=== PATIENT | female | born 1940 | race Caucasian/White ===

== ENCOUNTER 2016-10-03 06:43 | Emergency (ER) | payer MEDICARE ==
[~2016-10-03] VITALS: Wt 46.1 kg
[2016-10-03] MEDS ORDERED: AMLO1TAB PO (08:57)
[2016-10-03] MEDS ORDERED: SIMV20TA PO (08:57)
--- NOTE | 2016-10-03 08:57 | ERD ---
ER Documentation Chief Complaint Date/Time DATE: 10/03/16 TIME: 08:54 Chief Complaint LEFT LOWER LEG WOUND OPENED THIS AM WHEN SHE GOT UP FROM BED. NO TRAUMA HPI This 76-year-old female came to the ER for having blood oozing out of her chronic ankle ulcer. Her home health nurse noticed this yesterday. She again has some slight blood oozing out of the inferior portion under her dressing. She has only mild pain to her ulcer which she usually does. She takes [place] at home for the pain. Is currently controlled. She has no lightheadedness dizziness or headache. She is able to use the foot and is ambulatory. ROS All systems reviewed and are negative except as per history of present illness. PMhx/Soc Hx Alcohol Use: Yes (occasionally) Hx Tobacco Use: Yes Smoking Status: Current some day smoker Physical Exam Vitals Vital Signs Date Time Temp Pulse Resp B/P Pulse Ox O2 Delivery O2 Flow Rate FiO2 10/03/16 06:48 98.6 80 18 152/80 98 Physical Exam Const: [] No distress Resp: Clear to auscultation bilaterally Cardio: Regular rate and rhythm, no murmurs Ext: No cyanosis, or edema. Large 10 x 6 oval-shaped vertically oriented ankle ulceration. There is no foul odor, there is no discoloration or necrosis , there is mild blood oozing from the inferior portion of this. Neur: Awake and alert Psych: Normal Mood and Affect Procedures/MDM Bleeding from chronic ulceration. Patient has excellent care with both home care and wound care clinic. She has an appointment today at 915 in the wound care clinic and is very building. The wound was rewrapped with Surgicel dressing. The blood is slightly as the surgery could still have time to work. We then change the dressing with a new piece of Surgicel. There was no bleeding after being observed for 30 minutes. Going to discharge her and allowed to go to her wound care clinic for further management and evaluation. Primary care follow-up advised as well as return precautions to the ER if there is further difficulty controlling the bleeding. Departure Diagnosis: Primary Impression: Bleeding disorder Additional Impression: Skin ulcer of ankle Condition: Stable Patient Instructions: First Aid: Bleeding, Post Op Wound Check, Bleeding Referrals: [facility] Additional Instructions: Go to your wound care appointment now. Follow up with PCP in 2 days. KANCHAN MENDEZ DO October 03, 2016 08:57
[2016-10-03] MEDS ORDERED: CLOP75TA27 PO (08:58)
[2016-10-03] MEDS ORDERED: HYDR12.58 PO (08:58)
== END 2016-10-03 08:56 | disposition home or self-care (01) ==
LOC: E/R 06:43
DX: D68.9 Coagulation defect, unspecified (principal); I10 Essential (primary) hypertension; F17.210 Nicotine dependence, cigarettes, uncomplicated
CPT/HCPCS: 99282

== ENCOUNTER 2016-11-28 06:36 | Emergency (ER) | payer MEDICARE ==
[~2016-11-28] VITALS: Ht 165.1 cm; Wt 49.5 kg
[~2016-11-28 06:36] MED LIST: AMLO1TAB PO; CLOP75TA27 PO; HYDR12.58 PO; SIMV20TA PO
[2016-11-28 06:47] VITALS: Ht 165.1 cm; Wt 49.5 kg
--- NOTE | 2016-11-28 07:33 | ERD ---
ER Documentation Chief Complaint Date/Time DATE: 11/28/16 TIME: 07:30 Chief Complaint BIB [facility], BLEED LOW (L) LEG S/P GRAFT IN August This is a 76-year-old female who presents to the emergency room for evaluation of a chronic left lower extremity leg ulcer. This patient does have a history of peripheral vascular disease and is status post femoropopliteal bypass for possible SFA thrombosis in the past. The patient does see vascular surgeon, Dr. mae and has an appointment with her primary care physician this morning at 9 AM. She states that she woke up this morning and did note that she was bleeding from the ulcer. The patient does have home health care however she has not had in the past 4 days. The patient denies any pulsatile bleeding and came to the ER for evaluation. She denies any trauma to the area and denies being on blood thinners at this time ROS All systems reviewed and are negative except as per history of present illness. Medications Home Meds Reported Medications Clopidogrel Bisulfate (Clopidogrel) 75 Mg Tablet, 75 MG PO DAILY, #30 TAB 10/03/16 Hydrochlorothiazide* (Hydrochlorothiazide*) 12.5 Mg Tablet, 12.5 MG PO DAILY, # 30 TAB 10/03/16 Simvastatin* (Zocor*) 20 Mg Tablet, 20 MG PO QHS, #30 TAB 10/03/16 Amlodipine Bes/Olmesartan Med (Javier 5-40 mg Tablet) 1 Each Tablet, 1 EACH PO DAILY, TAB 10/03/16 Allergies Allergies: Coded Allergies: No Known Allergy (Unverified , 10/03/16) PMhx/Soc History of Surgery: Yes (BYPASS GRAFT BILATERAL LEGS) Anesthesia Reaction: No Hx Neurological Disorder: No Hx Respiratory Disorders: No Hx Psychiatric Problems: No Hx Alcohol Use: Yes (occasionally) Hx Tobacco Use: Yes (STOPPED IN 2015) Smoking Status: Former smoker Physical Exam Vitals Vital Signs Date Time Temp Pulse Resp B/P Pulse Ox O2 Delivery O2 Flow Rate FiO2 11/28/16 06:59 98.1 68 15 143/86 Room Air 11/28/16 06:47 98.1 64 14 148/73 94 Physical Exam INITIAL VITAL SIGNS: Reviewed by me GENERAL: The patient is well developed and appropriate for usual state of health in no apparent distress HEENT: Pupils equal, round, and reactive to light. EOMI. There is no scleral icterus. NECK: C-spine is soft and supple, there is no meningismus. There is no cervical lymphadenopathy. LUNGS: Clear to auscultation bilaterally. There are no rales, wheezes or rhonchi. HEART: Regular rate and rhythm, no murmurs, clicks, rubs or gallops. ABDOMEN: Soft, non-tender, non-distended. There are bowel sounds in all four quadrants. No rebound or guarding. EXTREMITIES: There is no peripheral cyanosis or edema. No focal swelling or erythema. NEUROLOGICAL: The patient moves all four extremities with 5/5 strength. Cranial nerves II - XII are intact. Normal gait. Alert and oriented SKIN: Large ulcer noted on the left lower extremity medial portion extending from the midcalf to the left medial malleolus, small amount of nonpulsatile bleeding noted. There is no apparent rash or petechiae. HEME/LYMPHATIC: There is no evidence of excessive bruising or lymphedema. PSYCHIATRIC: The patient does not appear anxious or depressed. Procedures/MDM This 76-year-old female presents to the emergency room for evaluation of chronic leg ulcer. The patient does have an appointment today at 9:15 AM with her primary care physician for reevaluation and possible intervention by vascular surgery. She has had a femoropopliteal bypass in the past done at [facility]. The patient had no pulsatile bleeding in the emergency room. I did note a small area of oozing. The patient did have Surgicel applied and had her wound wrapped. The patient is in no acute distress at this time and will be discharged so she can follow-up with her primary care physician today. Departure Diagnosis: Primary Impression: Encounter for wound re-check Additional Impression: Ulcer of left lower extremity Condition: Stable MACEY ANGELA DO Nov 28, 2016 07:33
[2016-11-28 08:39] VITALS: BP 131/62; PULSE 67; RESP 15; TEMP 98.1
== END 2016-11-28 08:45 | disposition home or self-care (01) ==
LOC: E/R 06:36
DX: L97.929 Non-pressure chronic ulcer of unspecified part of left lower leg with unspecified severity (principal); Z48.01 Encounter for change or removal of surgical wound dressing; Z95.828 Presence of other vascular implants and grafts; Z87.891 Personal history of nicotine dependence
CPT/HCPCS: 99282

== ENCOUNTER 2016-12-26 11:14 | Inpatient (IN) | payer MEDICARE ==
[~2016-12-26] VITALS: Ht 165.1 cm; Wt 50.9 kg
[2016-12-26 17:42] VITALS: Ht 165.1 cm; Wt 50.9 kg
[2016-12-26] MEDS ORDERED: ONDANSETRON 4 MG INJ IV PRN (18:00)
[2016-12-26] MEDS ORDERED: NACL 0.9% 3 ML SYG IV SCH (18:00)
[2016-12-26] MEDS ORDERED: BISACODYL (EC) 5 MG TAB PO PRN (18:00)
[2016-12-26] MEDS ORDERED: ACETAMINOPHEN 325 MG TAB PO PRN (18:00)
[2016-12-26] MEDS ORDERED: MAGNESIUM HYDROXIDE 30ML CUP PO PRN (18:00)
[2016-12-26] MEDS ORDERED: hydrALAzine 20 MG INJ IV PRN (18:00)
[2016-12-26] MEDS: HYDROCODONE/APAP (5/325) TAB PO PRN (18:05)
[2016-12-26] MEDS: NICOTINE (7 MG/24 HR) PATCH TRANSDERM SCH (18:30)
[2016-12-26] MEDS ORDERED: VANCOMYCIN 1 GM in NS 250 ML IVPB ONE (18:30)
[2016-12-26] MEDS ORDERED: VANCOMYCIN IV PER PHARMACY XX SCH (18:30)
--- NOTE | 2016-12-26 18:38 | HP ---
Date/Time of Note Date/Time of Note DATE: 12/26/16 TIME: 18:36 Assessment/Plan VTE Prophylaxis VTE Prophylaxis Intervention: heparin Assessment/Plan Chief Complaint/Hosp Course 1. Left lower extremity nonhealing wounds. Failed outpatient treatment. The patient will be started on empiric antibiotics. Wound cultures will be obtained. The patient will be followed by podiatry, vascular surgery, and infectious diseases. 2. Essential hypertension. The patient will be started on routine antihypertensives. The patient will also be started on PRN antihypertensives for any systolic blood pressure readings greater than 160 mmHg. 3. Dyslipidemia. The patient's statins will be resumed. A fasting lipid panel will be obtained. 4. Peripheral vascular disease. Patient is status post bypass surgery on bilateral lower extremities. The patient will be continued on antiplatelet therapy. The patient will be followed by vascular surgery. 5. Nicotine use. The patient will be provided with a nicotine patch. Plan: The patient will be admitted to inpatient medical surgical floor. The patient will be started on a low-cholesterol diet. The patient will be started on DVT prophylaxis and gastrointestinal prophylaxis. The patient will remain a full code. Activities will be as tolerated. The rest of the patient's management will be based on the clinical course, input from consultants, and the results of diagnostic studies. Based on the patient's clinical presentation, she most probably requires at least 2 midnights stay for further management and evaluation of her clinical presentation. The case and management of this patient was fully discussed with Dr. Elaine. Problems: HPI/ROS Admit Date/Time Admit Date/Time Dec 26, 2016 at 14:43 Hx of Present Illness Reason for admission: Left lower extremity chronic wound. Consultants 1. Jimi Azul MD, Vascular Surgery 2. Dr. Jose Jessica MD, Infectious Diseases. This is a 76-year-old -[place] female with past medical history of peripheral vascular disease, essential hypertension, and dyslipidemia who has been [facility] for left lower extremity nonhealing ulcer. The patient went to see the physician at the [facility] today. As per the oyster unloader at Dr. Ayala at the am[facility] prevention center, the patient will be admitted to medical surgical floor for further management of nonhealing left lower extremity ulcer. The patient is not the best historian. Hence the details are of her medical problems were obtained by reviewing the patient's medical records. The patient follows up with outpatient vascular surgeon Dr. Watkins and her laborer steel handling is Dr. Abdul. ROS Constitutional: no complaints Eyes: no complaints ENT: no complaints Respiratory: no complaints Cardiovascular: no complaints Gastrointestinal: no complaints Genitourinary: no complaints Musculoskeletal: no complaints Skin: skin lesions (Bilateral lower extreme) Neurologic: no complaints Endocrine: no complaints Lymphatic: no complaints Psychological: no complaints Immunologic: no complaints PMH/Family/Social Past Medical History Medical History: high cholesterol, hypertension, other (Peripheral vascular disease) Past Surgical History Past Surgical Hx: other (Hysterectomy, bilateral lower extremity arterial bypass surgery) Social History Alcohol Use: occasionally Smoking Status: Current every day smoker Drug Use: none Exam/Review of Systems Exam Exam General: Thin, frail looking, 76 year-old female lying in bed in no apparent distress. HEENT: Normocephalic and atraumatic. Eyes: Anicteric sclerae, conjunctivae clear. ENT: Nasal septum midline, oral mucosa moist. Neck supple, no JVD noticed. Respiratory: Bilaterally clear breath sounds. No use of accessory muscles of respiration. No adventitious breath sounds. Cardiovascular: S1, S2 heard. No murmurs or gallops. Abdomen: Soft, nontender, and nondistended. Bowel sounds positive in all 4 quadrants. Genitourinary: Deferred. Extremities: Right lower extremity wound below the medial malleolus. Left lower extremity wound with eschar formation laterally and medially. Left lower extremity edema greater than right lower extremity. Left lower extremity edema greater than right lower extremity. Neurologic: Cranial nerves II through XII grossly intact. The patient is awake, alert, and oriented. Medications Medications Current Medications Ondansetron HCl (Zofran Inj) 4 mg Q6H PRN IV NAUSEA AND/OR VOMITING; Start at 18:00 Acetaminophen (Tylenol Tab) 650 mg Q6H PRN PO PAIN LEVEL 1-3 OR FEVER; Start at 18:00 Acetaminophen/ Hydrocodone Bitart ([place] (5/325)) 1 tab Q6H PRN PO MODERATE PAIN LEVEL 4-6 Last administered on 12/26/16t 18:05; Admin Dose 1 TAB; Start at 18:00 Morphine Sulfate (morphine) 2 mg Q4H PRN IV SEVERE PAIN LEVEL 7-10; Start 12/26 at 18:00 Magnesium Hydroxide (Milk Of Mag) 30 ml DAILY PRN PO CONSTIPATION; Start at 18:00 Bisacodyl (Dulcolax) 5 mg DAILY PRN PO CONSTIPATION; Start 12/26/16 at 18:00 Famotidine (Pepcid) 20 mg Q12 PO ; Start 12/26/16 at 21:00 Heparin Sodium (Porcine) (Heparin (5000 Units/0.5 ml)) 5,000 unit Q12 SC ; Start 12/26/16 at 21:00 Clopidogrel Bisulfate (plaVIX) 75 mg DAILY PO ; Start 12/27/16 at 09:00 Hydrochlorothiazide (Hydrochlorothiazide) 12.5 mg DAILY PO ; Start 12/27/16 at 09:00 Amlodipine Besylate (Norvasc) 5 mg DAILY PO ; Start 12/27/16 at 09:00 Atorvastatin Calcium (Lipitor) 10 mg QHS PO ; Start 12/26/16 at 21:00 Hydralazine HCl (Apresoline) 10 mg Q6H PRN IV SBP>160; Start 12/26/16 at 18:00 Losartan Potassium (Cozaar) 100 mg DAILY PO ; Start 12/27/16 at 09:00 Nicotine 1 patch 1 patch DAILY TRANSDERM ; Start 12/26/16 at 18:30 Vancomycin HCl (Vancocin) 250 ml @ 125 mls/hr ONCE ONCE IVPB ; Start 12/26/16 at 18:30; Stop 12/26/16 at 20:29 AMANDA KUNZ NP Dec 26, 2016 18:38
[2016-12-26 18:40] LABS: BASOPHILS % 0.1 % (0.0-2.0); EOSINOPHILS # 0.1 10^3/ul (0.0-0.5); EOSINOPHILS % 1.4 % (0.0-7.0); HEMOGLOBIN 11.7 g/dl (12.0-16.0); LYMPHOCYTES # 0.8 10^3/ul (0.8-2.9); LYMPHOCYTES % 10.8 % (15.0-51.0); MEAN CORPUSCULAR HEMOGLOBIN 29.9 pg (29.0-33.0); MEAN CORPUSCULAR HGB CONC 32.5 g/dl (32.0-37.0); MEAN CORPUSCULAR VOLUME 92.1 fl (82.0-101.0); MEAN PLATELET VOLUME 8.8 fl (7.4-10.4); MONOCYTE # 0.3 10^3/ul (0.3-0.9); MONOCYTES % 3.8 % (0.0-11.0); NEUTROPHILS % 83.5 % (39.0-77.0); PLATELET COUNT 496 10^3/UL (140-415); RED BLOOD COUNT 3.91 10^6/ul (4.20-5.40); RED CELL DISTRIBUTION WIDTH 12.8 % (11.5-14.5); WHITE BLOOD COUNT 7.2 10^3/ul (4.8-10.8)
[2016-12-26 18:54] LABS: INR 0.86; PROTIME 11.7 Sec (12.2-14.2); PT RATIO 0.9
[2016-12-26 18:55] LABS: PARTIAL THROMBOPLASTIN TIME 25.9 Sec (25.0-35.0)
[2016-12-26 19:07] LABS: ALBUMIN 3.9 g/dl (3.3-4.9); ALBUMIN/GLOBULIN RATIO 1.11; CALCIUM 9.4 mg/dl (8.4-10.2); CREATININE 0.9 mg/dl (0.44-1.00); MAGNESIUM 1.9 mg/dl (1.7-2.5); POTASSIUM 3.4 mmol/L (3.5-5.1); TOTAL PROTEIN 7.4 g/dl (6.1-8.1)
[2016-12-26 19:24] VITALS: BP 138/68; RESP 18
--- NOTE | 2016-12-26 19:58 | CONS ---
Date/Time of Note Date/Time of Note DATE: 12/26/16 TIME: 19:57 Consultation Date/Type/Reason Admit Date/Time Dec 26, 2016 at 14:43 Type of Consultation: ID Reason for Consultation Antibiotic management Eyes: no complaints ENT: no complaints Respiratory: no complaints Cardiovascular: no complaints Gastrointestinal: no complaints Genitourinary: no complaints Musculoskeletal: no complaints Skin: skin lesions (Bilateral lower extreme) Neurologic: no complaints Lymphatic: no complaints Psychological: no complaints Immunologic: no complaints Past Medical History Medical History: high cholesterol, hypertension, other (Peripheral vascular disease) Past Surgical History Past Surgical Hx: other (Hysterectomy, bilateral lower extremity arterial bypass surgery) Social History Alcohol Use: occasionally Smoking Status: Current every day smoker Drug Use: none Exam/Review of Systems Vital Signs Vitals Vital Signs Date Time Temp Pulse Resp B/P Pulse Ox O2 Delivery O2 Flow Rate FiO2 12/26/16 19:24 97.8 79 18 138/68 96 Results Result Diagram: 12/26/16 1819 12/26/16 1819 Results 24 hrs Laboratory Tests Test 12/26/16 18:19 White Blood Count 7.2 Red Blood Count 3.91 L Hemoglobin 11.7 L Hematocrit 36.0 L Mean Corpuscular Volume 92.1 Mean Corpuscular Hemoglobin 29.9 Mean Corpuscular Hemoglobin Concent 32.5 Red Cell Distribution Width 12.8 Platelet Count 496 H Mean Platelet Volume 8.8 Neutrophils % 83.5 H Lymphocytes % 10.8 L Monocytes % 3.8 Eosinophils % 1.4 Basophils % 0.1 Nucleated Red Blood Cells % 0.0 Neutrophils # 6.0 Lymphocytes # 0.8 Monocytes # 0.3 Eosinophils # 0.1 Basophils # 0.0 Nucleated Red Blood Cells # 0.0 Prothrombin Time 11.7 L Prothrombin Time Ratio 0.9 INR International Normalized Ratio 0.86 Activated Partial Thromboplast Time 25.9 Sodium Level 143 Potassium Level 3.4 L Chloride Level 100 Carbon Dioxide Level 30 Anion Gap 16 Blood Urea Nitrogen 19 Creatinine 0.90 Glucose Level 168 Hemoglobin A1c 5.9 Calcium Level 9.4 Phosphorus Level 3.0 Magnesium Level 1.9 Total Bilirubin 0.0 L Direct Bilirubin 0.00 Indirect Bilirubin 0.0 Aspartate Amino Transf (AST/SGOT) 26 Alanine Aminotransferase (ALT/SGPT) 21 Alkaline Phosphatase 88 Total Protein 7.4 Albumin 3.9 Globulin 3.50 H Albumin/Globulin Ratio 1.11 Vitamin D 1,25-Dihydroxy 26.8 L Thyroid Stimulating Hormone (TSH) Pending Free Thyroxine 1.08 Medications Medications Current Medications Ondansetron HCl (Zofran Inj) 4 mg Q6H PRN IV NAUSEA AND/OR VOMITING; Start at 18:00 Acetaminophen (Tylenol Tab) 650 mg Q6H PRN PO PAIN LEVEL 1-3 OR FEVER; Start at 18:00 Acetaminophen/ Hydrocodone Bitart ([place] (5/325)) 1 tab Q6H PRN PO MODERATE PAIN LEVEL 4-6 Last administered on 12/26/16t 18:05; Admin Dose 1 TAB; Start at 18:00 Morphine Sulfate (morphine) 2 mg Q4H PRN IV SEVERE PAIN LEVEL 7-10; Start 12/26 at 18:00 Magnesium Hydroxide (Milk Of Mag) 30 ml DAILY PRN PO CONSTIPATION; Start at 18:00 Bisacodyl (Dulcolax) 5 mg DAILY PRN PO CONSTIPATION; Start 12/26/16 at 18:00 Famotidine (Pepcid) 20 mg Q12 PO ; Start 12/26/16 at 21:00 Heparin Sodium (Porcine) (Heparin (5000 Units/0.5 ml)) 5,000 unit Q12 SC ; Start 12/26/16 at 21:00 Clopidogrel Bisulfate (plaVIX) 75 mg DAILY PO ; Start 12/27/16 at 09:00 Hydrochlorothiazide (Hydrochlorothiazide) 12.5 mg DAILY PO ; Start 12/27/16 at 09:00 Amlodipine Besylate (Norvasc) 5 mg DAILY PO ; Start 12/27/16 at 09:00 Atorvastatin Calcium (Lipitor) 10 mg QHS PO ; Start 12/26/16 at 21:00 Hydralazine HCl (Apresoline) 10 mg Q6H PRN IV SBP>160; Start 12/26/16 at 18:00 Losartan Potassium (Cozaar) 100 mg DAILY PO ; Start 12/27/16 at 09:00 Nicotine 1 patch 1 patch DAILY TRANSDERM ; Start 12/26/16 at 18:30 Vancomycin HCl 250 ml @ 125 mls/hr ONCE ONCE IVPB ; Start 12/26/16 at 18:30; Stop 12/26/16 at 20:29 Vancomycin HCl/ Sodium Chloride (Vancocin/NS) 150 ml @ 75 mls/hr Q24H IVPB ; Start 12/27/16 at 20:00 AYANA MAYORGA MD Dec 26, 2016 19:58
[2016-12-26 20:20] LABS: THYROID STIMULATING HORMONE 4.48 MIU/L (0.465-4.680)
[2016-12-26] MEDS: FAMOTIDINE 20 MG TAB PO SCH (20:43)
[2016-12-26] MEDS: ATORVASTATIN 10 MG TAB PO SCH (20:44)
[2016-12-26] MEDS: HEPARIN 5,000 UNIT/0.5 ML VIAL SC SCH ×2 (21:00→21:53)
[2016-12-26] MEDS: morphine 2 MG INJ IV PRN (21:47)
[2016-12-26] MEDS ORDERED: TRAV2.5D BOTH EYES (22:47)
[2016-12-26] MEDS ORDERED: TIMO5DRO30 BOTH EYES (22:47)
[2016-12-26] MEDS ORDERED: ASPI-664 PO (22:47)
[2016-12-26] MEDS ORDERED: CILO100T PO (22:47)
[2016-12-27 02:32] VITALS: BP 141/71; RESP 18
[2016-12-27] MEDS: morphine 2 MG INJ IV PRN ×2 (05:01→17:37)
[2016-12-27 07:37] LABS: CHOL/HDL RATIO 4.1 RATIO
[2016-12-27 07:45] VITALS: BP 133/63; RESP 20
[2016-12-27] MEDS: CLOPIDOGREL 75 MG TAB PO SCH (08:20)
[2016-12-27] MEDS: LOSARTAN 50 MG TAB PO SCH (08:20)
[2016-12-27] MEDS: AMLODIPINE 5 MG TAB PO SCH (08:20)
[2016-12-27] MEDS: FAMOTIDINE 20 MG TAB PO SCH ×2 (08:20→20:16)
[2016-12-27] MEDS: HYDROCHLOROTHIAZIDE 12.5 MG CAP PO SCH (08:20)
[2016-12-27] MEDS: NICOTINE (7 MG/24 HR) PATCH TRANSDERM SCH (08:21)
[2016-12-27] MEDS: HEPARIN 5,000 UNIT/0.5 ML VIAL SC SCH ×2 (08:22→20:22)
[2016-12-27] MEDS: HYDROCODONE/APAP (5/325) TAB PO PRN ×3 (08:24→21:33)
--- NOTE | 2016-12-27 11:01 | PN ---
Date/Time of Note Date/Time of Note DATE: 12/27/16 TIME: 10:59 Assessment/Plan VTE Prophylaxis VTE Prophylaxis Intervention: heparin Lines/Catheters IV [facility] Saline Lock Assessment/Plan Chief Complaint/Hosp Course 1. Left lower extremity nonhealing wounds. Failed outpatient treatment. Continue antibiotics as per infectious diseases. Being followed by podiatry and vascular surgery. 2. Essential hypertension. The patient will be continued on routine antihypertensives. The patient will also be continued on PRN antihypertensives for any systolic blood pressure readings greater than 160 mmHg. 3. Dyslipidemia. The patient will be continued on statins. 4. Peripheral vascular disease. The patient will be continued on antiplatelet therapy. The patient being followed by vascular surgery. 5. Nicotine use. The patient will be provided with a nicotine patch. 6. Normocytic, normochromic anemia. Most probably anemia of chronic disease. Will monitor H&H closely. 7. Fluids, electrolytes, and nutrition. Low-cholesterol diet. 8. DVT prophylaxis. Subcutaneous heparin. 9. Gastrointestinal prophylaxis. Histamine 2 receptor blockers. 10. Plan. Continue local wound care. Continue antimicrobials. Await cultures. Case discussed with . Problems: Subjective 24 Hr Interval Summary Free Text/Dictation Had some left lower extremity pain in the morning. Exam/Review of Systems Vital Signs Vitals Vital Signs Date Time Temp Pulse Resp B/P Pulse Ox O2 Delivery O2 Flow Rate FiO2 12/27/16 07:45 98.9 87 20 133/63 96 Intake and Output 12/26/16 12/26/16 12/27/16 15:00 23:00 07:00 Intake Total 250 ml Balance 250 ml Exam General: Thin, frail looking, 76 year-old female lying in bed in no apparent distress. HEENT: Normocephalic and atraumatic. Eyes: Anicteric sclerae, conjunctivae clear. ENT: Nasal septum midline, oral mucosa moist. Neck supple, no JVD noticed. Respiratory: Bilaterally clear breath sounds. No use of accessory muscles of respiration. No adventitious breath sounds. Cardiovascular: S1, S2 heard. No murmurs or gallops. Abdomen: Soft, nontender, and nondistended. Bowel sounds positive in all 4 quadrants. Genitourinary: Deferred. Extremities: Right lower extremity wound below the medial malleolus. Left lower extremity wound with eschar formation laterally and medially. Left lower extremity edema greater than right lower extremity. Neurologic: Cranial nerves II through XII grossly intact. The patient is awake, alert, and oriented. Results Result Diagram: 12/26/16181812/26/161818 Results 24 hrs Laboratory Tests Test 12/26/16 18:19 12/27/16 05:52 White Blood Count 7.2 Red Blood Count 3.91 L Hemoglobin 11.7 L Hematocrit 36.0 L Mean Corpuscular Volume 92.1 Mean Corpuscular Hemoglobin 29.9 Mean Corpuscular Hemoglobin Concent 32.5 Red Cell Distribution Width 12.8 Platelet Count 496 H Mean Platelet Volume 8.8 Neutrophils % 83.5 H Lymphocytes % 10.8 L Monocytes % 3.8 Eosinophils % 1.4 Basophils % 0.1 Nucleated Red Blood Cells % 0.0 Neutrophils # 6.0 Lymphocytes # 0.8 Monocytes # 0.3 Eosinophils # 0.1 Basophils # 0.0 Nucleated Red Blood Cells # 0.0 Prothrombin Time 11.7 L Prothrombin Time Ratio 0.9 INR International Normalized Ratio 0.86 Activated Partial Thromboplast Time 25.9 Sodium Level 143 Potassium Level 3.4 L Chloride Level 100 Carbon Dioxide Level 30 Anion Gap 16 Blood Urea Nitrogen 19 Creatinine 0.90 Glucose Level 168 Hemoglobin A1c 5.9 Calcium Level 9.4 Phosphorus Level 3.0 Magnesium Level 1.9 Total Bilirubin 0.0 L Direct Bilirubin 0.00 Indirect Bilirubin 0.0 Aspartate Amino Transf (AST/SGOT) 26 Alanine Aminotransferase (ALT/SGPT) 21 Alkaline Phosphatase 88 Total Protein 7.4 Albumin 3.9 Globulin 3.50 H Albumin/Globulin Ratio 1.11 Vitamin D 1,25-Dihydroxy 26.8 L Thyroid Stimulating Hormone (TSH) 4.480 Free Thyroxine 1.08 Triglycerides Level 67 Cholesterol Level 115 LDL Cholesterol, Calculated 74 HDL Cholesterol 28 L Cholesterol/HDL Ratio 4.1 Medications Medications Current Medications Ondansetron HCl (Zofran Inj) 4 mg Q6H PRN IV NAUSEA AND/OR VOMITING; Start at 18:00 Acetaminophen (Tylenol Tab) 650 mg Q6H PRN PO PAIN LEVEL 1-3 OR FEVER; Start at 18:00 Acetaminophen/ Hydrocodone Bitart ([place] (5/325)) 1 tab Q6H PRN PO MODERATE PAIN LEVEL 4-6 Last administered on 12/27/16 08:24; Admin Dose 1 TAB; Start at 18:00 Morphine Sulfate (morphine) 2 mg Q4H PRN IV SEVERE PAIN LEVEL 7-10 Last administered on 12/27/16 05:01; Admin Dose 2 MG; Start 12/26/16 at 18:00 Magnesium Hydroxide (Milk Of Mag) 30 ml DAILY PRN PO CONSTIPATION; Start at 18:00 Bisacodyl (Dulcolax) 5 mg DAILY PRN PO CONSTIPATION; Start 12/26/16 at 18:00 Famotidine (Pepcid) 20 mg Q12 PO Last administered on 12/27/16 08:20; Admin Dose 20 MG; Start 12/26/16 at 21:00 Heparin Sodium (Porcine) (Heparin (5000 Units/0.5 ml)) 5,000 unit Q12 SC Last administered on 12/27/16 08:22; Admin Dose 5,000 UNIT; Start 12/26/16 at 21:00 Clopidogrel Bisulfate (plaVIX) 75 mg DAILY PO Last administered on 12/27/16 08 :20; Admin Dose 75 MG; Start 12/27/16 at 09:00 Hydrochlorothiazide (Hydrochlorothiazide) 12.5 mg DAILY PO Last administered on 12/27/16 08:20; Admin Dose 12.5 MG; Start 12/27/16 at 09:00 Amlodipine Besylate (Norvasc) 5 mg DAILY PO Last administered on 12/27/16 08: 20; Admin Dose 5 MG; Start 12/27/16 at 09:00 Atorvastatin Calcium (Lipitor) 10 mg QHS PO Last administered on 12/26/16 20: 44; Admin Dose 10 MG; Start 12/26/16 at 21:00 Hydralazine HCl (Apresoline) 10 mg Q6H PRN IV SBP>160; Start 12/26/16 at 18:00 Losartan Potassium (Cozaar) 100 mg DAILY PO Last administered on 12/27/16 08: 20; Admin Dose 100 MG; Start 12/27/16 at 09:00 Nicotine 1 patch 1 patch DAILY TRANSDERM ; Start 12/26/16 at 18:30 Vancomycin HCl/ Sodium Chloride (Vancocin/NS) 150 ml @ 75 mls/hr Q24H IVPB ; Start 12/27/16 at 20:00 AMANDA KUNZ NP Dec 27, 2016 11:01 AMANDA KUNZ NP Dec 27, 2016 11:01
[2016-12-27 14:16] VITALS: BP 130/62; RESP 20
[2016-12-27] MEDS: LEVOFLOXACIN 500MG/D5W (PMX) 100 ML IVPB SCH (15:03)
[2016-12-27] MEDS ORDERED: GUAIFENESIN/DM 5ML CUP PO PRN (16:00)
[2016-12-27 19:16] VITALS: BP 133/66; RESP 18
--- NOTE | 2016-12-27 19:51 | CONS ---
Date/Time of Note Date/Time of Note DATE: 12/27/16 TIME: 19:34 Assessment/Plan Assessment/Plan Chief Complaint/Hosp Course ID PROGRESS NOTE 24H SUMMARY * Resting eyes closed, vss, no fevers, calm, NAD, no complaints offered * Chart reviewed MICRO 12/19/16 WOUND CULTURE Final Organism 1 PSEUDOMONAS AERUGINOSA QUANTITY 1+ P.AERUG M.I.C. RX --------- --- AMIKACIN <=2 S AZTREONAM S CEFEPIME 2 S CEFTAZIDIME 2 S CIPROFLOXACIN <=0.25 S GENTAMICIN <=1 S IMIPENEM >=16 R LEVOFLOXACIN 0.25 S TOBRAMYCIN <=1 S PIPERACILLIN/TAZOBACTAM 8 S 11/14/16 WOUND CULTURE Final Organism 1 PSEUDOMONAS AERUGINOSA QUANTITY 1+ Organism 2 CORYNEBACTER JEIKEIUM (GRP JK) QUANTITY 4+ Organism 3 ACINETOBACTER BAUMANNII QUANTITY 1+ Organism 4 ALPHA HEMOLYTIC STREP SPP QUANTITY SCANT GROWTH . VIRIDANS GROUP GENERAL: She is an elderly -Greek woman, VSS, NAD HEENT: Unremarkable NECK: Supple, full ROM CHEST: Equal chest rise bilaterally, without dyspnea on observation CV: Radial pulse RRR ABDOMEN: Soft, nontender, nondistended. LOWER EXTREMITIES: 2+ DP pulses/LLEXT DSG C/D/I. ID ASSESSMENT 1. Left lower extremity nonhealing wounds. Failed outpatient treatment. * Followed by podiatry and vascular surgery. 2. Peripheral arterial disease => hx of bilateral lower extremity arterial bypass surgery early 2016 @ [facility] * Continued on antiplatelet therapy 3. Dyslipidemia = on statins. 4. Essential hypertension. 5. GERD 6. Glaucoma -> Timolol eye gtts 7. Tobaccoism -> 1-cig per day ? nicotine patch 8. ?Psych? => Noncompliance with medical tx despite severity of condition CURRENT ABX: Vanco IV + Levaquin ID RECOMMENDATIONS 1. Continue current ABX 2. Check nares for MRSA 3. Smoking cessation -> strongly advocate . Problems: Consultation Date/Type/Reason Admit Date/Time Dec 26, 2016 at 14:43 Initial Consult Date Type of Consultation: ID Exam/Review of Systems Vital Signs Vitals Vital Signs Date Time Temp Pulse Resp B/P Pulse Ox O2 Delivery O2 Flow Rate FiO2 12/27/16 19:16 98.2 18 133/66 91 12/27/16 14:16 76 Intake and Output 12/26/16 12/26/16 12/27/16 15:00 23:00 07:00 Intake Total 250 ml Balance 250 ml Results Result Diagram: 12/26/16 1819 12/26/16 1819 Results 24 hrs Laboratory Tests Test 12/27/16 05:52 Triglycerides Level 67 Cholesterol Level 115 LDL Cholesterol, Calculated 74 HDL Cholesterol 28 L Cholesterol/HDL Ratio 4.1 Medications Medications Current Medications Ondansetron HCl (Zofran Inj) 4 mg Q6H PRN IV NAUSEA AND/OR VOMITING; Start at 18:00 Acetaminophen (Tylenol Tab) 650 mg Q6H PRN PO PAIN LEVEL 1-3 OR FEVER; Start at 18:00 Acetaminophen/ Hydrocodone Bitart ([place] (5/325)) 1 tab Q6H PRN PO MODERATE PAIN LEVEL 4-6 Last administered on 12/27/16 15:06; Admin Dose 1 TAB; Start at 18:00 Morphine Sulfate (morphine) 2 mg Q4H PRN IV SEVERE PAIN LEVEL 7-10 Last administered on 12/27/16 17:37; Admin Dose 2 MG; Start 12/26/16 at 18:00 Magnesium Hydroxide (Milk Of Mag) 30 ml DAILY PRN PO CONSTIPATION; Start at 18:00 Bisacodyl (Dulcolax) 5 mg DAILY PRN PO CONSTIPATION; Start 12/26/16 at 18:00 Famotidine (Pepcid) 20 mg Q12 PO Last administered on 12/27/16 08:20; Admin Dose 20 MG; Start 12/26/16 at 21:00 Heparin Sodium (Porcine) (Heparin (5000 Units/0.5 ml)) 5,000 unit Q12 SC Last administered on 12/27/16 08:22; Admin Dose 5,000 UNIT; Start 12/26/16 at 21:00 Clopidogrel Bisulfate (plaVIX) 75 mg DAILY PO Last administered on 12/27/16 08 :20; Admin Dose 75 MG; Start 12/27/16 at 09:00 Hydrochlorothiazide (Hydrochlorothiazide) 12.5 mg DAILY PO Last administered on 12/27/16 08:20; Admin Dose 12.5 MG; Start 12/27/16 at 09:00 Amlodipine Besylate (Norvasc) 5 mg DAILY PO Last administered on 12/27/16 08: 20; Admin Dose 5 MG; Start 12/27/16 at 09:00 Atorvastatin Calcium (Lipitor) 10 mg QHS PO Last administered on 12/26/16 20: 44; Admin Dose 10 MG; Start 12/26/16 at 21:00 Hydralazine HCl (Apresoline) 10 mg Q6H PRN IV SBP>160; Start 12/26/16 at 18:00 Losartan Potassium (Cozaar) 100 mg DAILY PO Last administered on 12/27/16 08: 20; Admin Dose 100 MG; Start 12/27/16 at 09:00 Nicotine 1 patch 1 patch DAILY TRANSDERM ; Start 12/26/16 at 18:30 Vancomycin HCl 750 mg/Sodium Chloride 150 ml @ 75 mls/hr Q24H IVPB ; Start at 20:00 Levofloxacin/ Dextrose (Levaquin 500mg/ D5W 100 ml (Pmx)) 100 ml @ 100 mls/hr Q24H IVPB Last administered on 12/27/16 15:03; Admin Dose 100 MLS/HR; Start at 14:00 Guaifenesin/ Dextromethorphan (Robitussin Dm Liquid Cup) 5 ml Q4H PRN PO Cough Last administered on 12/27/16 15:46; Admin Dose 5 ML; Start 12/27/16 at 16:00 NIELS KNAPP NP Dec 27, 2016 19:45
[2016-12-27] MEDS: ATORVASTATIN 10 MG TAB PO SCH (20:16)
[2016-12-27] MEDS: VANCOMYCIN 750 MG in SOD CHLORIDE 0.9% 150 ML IVPB SCH (20:16)
[2016-12-27] MEDS: TIMOLOL 0.5% 5 ML OPH BOTH EYES SCH (21:00)
[2016-12-27] MEDS: LATANOPROST 0.005% 2.5 ML OPH BOTH EYES SCH (21:34)
[2016-12-28 02:00] VITALS: BP 136/69; RESP 18
[2016-12-28] MEDS: morphine 2 MG INJ IV PRN ×2 (02:01→22:49)
[2016-12-28 06:22] LABS: BASOPHILS % 0.2 % (0.0-2.0); EOSINOPHILS # 0.1 10^3/ul (0.0-0.5); EOSINOPHILS % 1.4 % (0.0-7.0); HEMATOCRIT 29.1 % (37.0-47.0); HEMOGLOBIN 9.4 g/dl (12.0-16.0); MEAN CORPUSCULAR HEMOGLOBIN 29.3 pg (29.0-33.0); MEAN CORPUSCULAR HGB CONC 32.3 g/dl (32.0-37.0); MEAN CORPUSCULAR VOLUME 90.7 fl (82.0-101.0); MONOCYTE # 0.4 10^3/ul (0.3-0.9); MONOCYTES % 7.2 % (0.0-11.0); NEUTROPHIL # 4.2 10^3/ul (1.6-7.5); NEUTROPHILS % 73.7 % (39.0-77.0); PLATELET COUNT 413 10^3/UL (140-415); RED BLOOD COUNT 3.21 10^6/ul (4.20-5.40); RED CELL DISTRIBUTION WIDTH 12.9 % (11.5-14.5); WHITE BLOOD COUNT 5.7 10^3/ul (4.8-10.8)
[2016-12-28 06:54] LABS: MAGNESIUM 1.5 mg/dl (1.7-2.5); PHOSPHORUS 3.2 mg/dl (2.5-4.9)
[2016-12-28 07:14] LABS: CALCIUM 8.9 mg/dl (8.4-10.2); CREATININE 0.75 mg/dl (0.44-1.00)
[2016-12-28 07:37] VITALS: BP 138/74; RESP 18
[2016-12-28] MEDS: CLOPIDOGREL 75 MG TAB PO SCH (08:19)
[2016-12-28] MEDS: TIMOLOL 0.5% 5 ML OPH BOTH EYES SCH ×2 (08:19→21:22)
[2016-12-28] MEDS: FAMOTIDINE 20 MG TAB PO SCH ×2 (08:19→21:21)
[2016-12-28] MEDS: AMLODIPINE 5 MG TAB PO SCH (08:19)
[2016-12-28] MEDS: HEPARIN 5,000 UNIT/0.5 ML VIAL SC SCH (08:20)
[2016-12-28] MEDS: HYDROCHLOROTHIAZIDE 12.5 MG CAP PO SCH (08:20)
[2016-12-28] MEDS: NICOTINE (7 MG/24 HR) PATCH TRANSDERM SCH (08:20)
[2016-12-28] MEDS: LOSARTAN 50 MG TAB PO SCH (08:20)
[2016-12-28] MEDS ORDERED: MAGNESIUM SULFATE 2 GM/50 ML 50 ML IVPB ONE (10:00)
--- NOTE | 2016-12-28 10:15 | PN ---
Date/Time of Note Date/Time of Note DATE: 12/28/16 TIME: 10:13 Assessment/Plan VTE Prophylaxis VTE Prophylaxis Intervention: heparin Lines/Catheters IV Catheter Type (from [facility]): Saline Lock Assessment/Plan Chief Complaint/Hosp Course 1. Left lower extremity nonhealing wounds. Failed outpatient treatment. Any antibiotics as per infectious diseases. Being followed by podiatry and vascular surgery. 2. Essential hypertension. The patient will be continued on routine antihypertensives. The patient will also be continued on PRN antihypertensives for any systolic blood pressure readings greater than 160 mmHg. 3. Dyslipidemia. The patient will be continued on statins. 4. Peripheral vascular disease. The patient will be continued on antiplatelet therapy. The patient being followed by vascular surgery. 5. Nicotine use. The patient will be provided with a nicotine patch. 6. Normocytic, normochromic anemia. Most probably anemia of chronic disease. Will monitor H&H closely. 7. Fluids, electrolytes, and nutrition. Low-cholesterol diet. 8. DVT prophylaxis. Subcutaneous heparin. 9. Gastrointestinal prophylaxis. Histamine 2 receptor blockers. 10. Plan. Continue local wound care. Continue antimicrobials. Await cultures. Replete magnesium. Case discussed with . Problems: Subjective 24 Hr Interval Summary Free Text/Dictation The patient remains afebrile. Vital signs stable. Exam/Review of Systems Vital Signs Vitals Vital Signs Date Time Temp Pulse Resp B/P Pulse Ox O2 Delivery O2 Flow Rate FiO2 12/28/16 07:37 98.9 86 18 138/74 96 Intake and Output 12/27/16 12/27/16 12/28/16 15:00 23:00 07:00 Intake Total 600 ml 1330 ml 250 ml Balance 600 ml 1330 ml 250 ml Exam General: Thin, frail looking, 76 year-old female lying in bed in no apparent distress. HEENT: Normocephalic and atraumatic. Eyes: Anicteric sclerae, conjunctivae clear. ENT: Nasal septum midline, oral mucosa moist. Neck supple, no JVD noticed. Respiratory: Bilaterally clear breath sounds. No use of accessory muscles of respiration. No adventitious breath sounds. Cardiovascular: S1, S2 heard. No murmurs or gallops. Abdomen: Soft, nontender, and nondistended. Bowel sounds positive in all 4 quadrants. Genitourinary: Deferred. Extremities: Right lower extremity wound below the medial malleolus. Left lower extremity wound with eschar formation laterally and medially. Left lower extremity edema greater than right lower extremity. Neurologic: Cranial nerves II through XII grossly intact. The patient is awake, alert, and oriented. Results Result Diagram: 12/28/1617 12/28/16 0517 Results 24 hrs Laboratory Tests Test 12/28/16 05:17 White Blood Count 5.7 # Red Blood Count 3.21 L Hemoglobin 9.4 L Hematocrit 29.1 L Mean Corpuscular Volume 90.7 Mean Corpuscular Hemoglobin 29.3 Mean Corpuscular Hemoglobin Concent 32.3 Red Cell Distribution Width 12.9 Platelet Count 413 Mean Platelet Volume 9.0 Neutrophils % 73.7 Lymphocytes % 17.0 Monocytes % 7.2 Eosinophils % 1.4 Basophils % 0.2 Nucleated Red Blood Cells % 0.0 Neutrophils # 4.2 Lymphocytes # 1.0 Monocytes # 0.4 Eosinophils # 0.1 Basophils # 0.0 Nucleated Red Blood Cells # 0.0 Sodium Level 141 Potassium Level 4.0 Chloride Level 103 Carbon Dioxide Level 27 Anion Gap 15 Blood Urea Nitrogen 13 Creatinine 0.75 Glucose Level 102 # Calcium Level 8.9 Phosphorus Level 3.2 Magnesium Level 1.5 L Medications Medications Current Medications Ondansetron HCl (Zofran Inj) 4 mg Q6H PRN IV NAUSEA AND/OR VOMITING; Start at 18:00 Acetaminophen (Tylenol Tab) 650 mg Q6H PRN PO PAIN LEVEL 1-3 OR FEVER; Start at 18:00 Acetaminophen/ Hydrocodone Bitart ([place] (5/325)) 1 tab Q6H PRN PO MODERATE PAIN LEVEL 4-6 Last administered on 12/27/16 21:33; Admin Dose 1 TAB; Start at 18:00 Morphine Sulfate (morphine) 2 mg Q4H PRN IV SEVERE PAIN LEVEL 7-10 Last administered on 12/28/16 02:01; Admin Dose 2 MG; Start 12/26/16 at 18:00 Magnesium Hydroxide (Milk Of Mag) 30 ml DAILY PRN PO CONSTIPATION; Start at 18:00 Bisacodyl (Dulcolax) 5 mg DAILY PRN PO CONSTIPATION; Start 12/26/16 at 18:00 Famotidine (Pepcid) 20 mg Q12 PO Last administered on 12/28/16 08:19; Admin Dose 20 MG; Start 12/26/16 at 21:00 Heparin Sodium (Porcine) (Heparin (5000 Units/0.5 ml)) 5,000 unit Q12 SC Last administered on 12/27/16 20:22; Admin Dose 5,000 UNIT; Start 12/26/16 at 21:00 Clopidogrel Bisulfate (plaVIX) 75 mg DAILY PO Last administered on 12/28/16 08 :19; Admin Dose 75 MG; Start 12/27/16 at 09:00 Hydrochlorothiazide (Hydrochlorothiazide) 12.5 mg DAILY PO Last administered on 12/28/16 08:20; Admin Dose 12.5 MG; Start 12/27/16 at 09:00 Amlodipine Besylate (Norvasc) 5 mg DAILY PO Last administered on 12/28/16 08: 19; Admin Dose 5 MG; Start 12/27/16 at 09:00 Atorvastatin Calcium (Lipitor) 10 mg QHS PO Last administered on 12/27/16 20: 16; Admin Dose 10 MG; Start 12/26/16 at 21:00 Hydralazine HCl (Apresoline) 10 mg Q6H PRN IV SBP>160; Start 12/26/16 at 18:00 Losartan Potassium (Cozaar) 100 mg DAILY PO Last administered on 12/28/16 08: 20; Admin Dose 100 MG; Start 12/27/16 at 09:00 Nicotine 1 patch 1 patch DAILY TRANSDERM ; Start 12/26/16 at 18:30 Vancomycin HCl 750 mg/Sodium Chloride 150 ml @ 75 mls/hr Q24H IVPB Last administered on 12/27/16 20:16; Admin Dose 75 MLS/HR; Start 12/27/16 at 20:00 Levofloxacin/ Dextrose (Levaquin 500mg/ D5W 100 ml (Pmx)) 100 ml @ 100 mls/hr Q24H IVPB Last administered on 12/27/16 15:03; Admin Dose 100 MLS/HR; Start at 14:00 Guaifenesin/ Dextromethorphan (Robitussin Dm Liquid Cup) 5 ml Q4H PRN PO Cough Last administered on 12/27/16 15:46; Admin Dose 5 ML; Start 12/27/16 at 16:00 Timolol Maleate (Timoptic 0.5%) 1 drop BID BOTH EYES Last administered on 08:19; Admin Dose 1 DROP; Start 12/27/16 at 21:00 Latanoprost 1 drop 1 drop QHS BOTH EYES Last administered on 12/27/16 21:34; Admin Dose 1 DROP; Start 12/27/16 at 21:30 Magnesium Sulfate (Magnesium Sulfate 2 Gm/50 ml) 50 ml @ 25 mls/hr ONCE ONCE IVPB ; Start 12/28/16 at 10:00; Stop 12/28/16 at 11:59 AMANDA KUNZ NP Dec 28, 2016 10:15 AMANDA KUNZ NP Dec 28, 2016 10:15
[2016-12-28] MEDS: CHOLECALCIFEROL 2,000 UNIT CAP PO SCH (10:38)
[2016-12-28] MEDS: HYDROCODONE/APAP (5/325) TAB PO PRN ×2 (10:39→19:59)
[2016-12-28] MEDS: ENOXAPARIN 30 MG/0.3 ML SYG SC SCH (11:00)
[2016-12-28] MEDS: LEVOFLOXACIN 500MG/D5W (PMX) 100 ML IVPB SCH (13:46)
--- NOTE | 2016-12-28 14:06 | CONS ---
DATE OF ADMISSION: 12/26/2016 DATE OF CONSULTATION: 12/26/2016 REASON FOR CONSULTATION: Antibiotic management. HISTORY OF PRESENT ILLNESS: The patient is a 76-year-old female with numerous problems including peripheral vascular disease, who comes in now with left lower extremity nonhealing wound. Past problems include: 1. Peripheral vascular disease. 2. Essential hypertension. 3. Dyslipidemia. The patient has been followed [facility] for left lower extremity nonhealing ulcer. She went to see her physician today and is now admitted for nonhealing left lower extremity ulcer. PAST MEDICAL HISTORY/OPERATIONS: As outlined. FAMILY HISTORY: Noncontributory. PAST SURGICAL HISTORY: Includes hysterectomy and bilateral lower extremity arterial bypass surgery. SOCIAL HISTORY: She does not drink. She smokes every day. She does not use drugs. ALLERGIES: NONE TO PENICILLIN, SULFA, OR FOODS. MEDICATION: Per chart. REVIEW OF SYSTEMS: As per HPI. PHYSICAL EXAMINATION: GENERAL: The patient is a thin, frail appearing female who is awake, responsive, in no acute distress. VITAL SIGNS: Stable. She is afebrile. SKIN: Without generalized rash. HEENT: Within normal limits. NECK: Supple. Lymph nodes not palpable. CHEST: Decreased breath sounds at the bases. HEART: Without murmur or gallop. ABDOMEN: Soft, nontender, without organosplenomegaly or masses. EXTREMITIES: Bilateral lower extremity dressings. Left lower extremity edema greater than right. RECTAL/GENITAL EXAMS: Deferred. NEUROLOGICAL: No focal neurological abnormalities. LABORATORY: White count 7.2 on admission. H and H of 11.7 and 36, platelet count 496,000. BUN and creatinine is 19/0.90. AST is 26. ALT is 21. Microbiology is pending. IMPRESSION AND PLAN: The patient is a 76-year-old female who comes in with left lower extremity wound. She is currently on vancomycin. Urine cultures are pending. I will dictate my findings to the hospitalist. Dictated By: Jose Llanes MD JD/sameer/ming /Document#: [id number]
[2016-12-28 14:24] VITALS: BP 119/66; RESP 18
--- NOTE | 2016-12-28 19:08 | CONS ---
Date/Time of Note Date/Time of Note DATE: 12/28/16 TIME: 19:04 Assessment/Plan Assessment/Plan Chief Complaint/Hosp Course ID PROGRESS NOTE CURRENT ABX: DAY #3 => Vanco IV + Levaquin 24H SUMMARY * Stable, no fevers, no new issues, no complaints offered * MRSA nares -> Pending * MICRO 12/19/16 WOUND CULTURE Final Organism 1 PSEUDOMONAS AERUGINOSA QUANTITY 1+ P.AERUG M.I.C. RX --------- --- AMIKACIN <=2 S AZTREONAM S CEFEPIME 2 S CEFTAZIDIME 2 S CIPROFLOXACIN <=0.25 S GENTAMICIN <=1 S IMIPENEM >=16 R LEVOFLOXACIN 0.25 S TOBRAMYCIN <=1 S PIPERACILLIN/TAZOBACTAM 8 S 11/14/16 WOUND CULTURE Final Organism 1 PSEUDOMONAS AERUGINOSA QUANTITY 1+ Organism 2 CORYNEBACTER JEIKEIUM (GRP JK) QUANTITY 4+ Organism 3 ACINETOBACTER BAUMANNII QUANTITY 1+ Organism 4 ALPHA HEMOLYTIC STREP SPP QUANTITY SCANT GROWTH . VIRIDANS GROUP GENERAL: She is an elderly -[place] woman, VSS, NAD HEENT: Unremarkable NECK: Supple, full ROM CHEST: Equal chest rise bilaterally, without dyspnea on observation CV: Radial pulse RRR ABDOMEN: Soft, nontender, nondistended. LOWER EXTREMITIES: 2+ DP pulses/LLEXT DSG C/D/I. ID ASSESSMENT 1. Left lower extremity nonhealing wounds. Failed outpatient treatment. * Followed by podiatry and vascular surgery. 2. Peripheral arterial disease => hx of bilateral lower extremity arterial bypass surgery early 2016 @ [facility] * Continued on antiplatelet therapy 3. Dyslipidemia = on statins. 4. Essential hypertension. 5. GERD 6. Glaucoma -> Timolol eye gtts 7. Tobaccoism -> 1-cig per day ? nicotine patch 8. ?Psych? => Noncompliance with medical tx despite severity of condition CURRENT ABX: DAY #3 => Vanco IV + Levaquin ID RECOMMENDATIONS 1. Continue current ABX 2. Check nares for MRSA 3. Smoking cessation -> strongly advocate . Problems: Consultation Date/Type/Reason Admit Date/Time Dec 26, 2016 at 14:43 Type of Consultation: ID Exam/Review of Systems Vital Signs Vitals Vital Signs Date Time Temp Pulse Resp B/P Pulse Ox O2 Delivery O2 Flow Rate FiO2 12/28/16 14:24 97.4 85 18 119/66 98 Intake and Output 12/27/16 12/27/16 12/28/16 15:00 23:00 07:00 Intake Total 600 ml 1330 ml 250 ml Balance 600 ml 1330 ml 250 ml Results Result Diagram: 12/28/1617 12/28/16 0517 Results 24 hrs Laboratory Tests Test 12/28/16 05:17 White Blood Count 5.7 # Red Blood Count 3.21 L Hemoglobin 9.4 L Hematocrit 29.1 L Mean Corpuscular Volume 90.7 Mean Corpuscular Hemoglobin 29.3 Mean Corpuscular Hemoglobin Concent 32.3 Red Cell Distribution Width 12.9 Platelet Count 413 Mean Platelet Volume 9.0 Neutrophils % 73.7 Lymphocytes % 17.0 Monocytes % 7.2 Eosinophils % 1.4 Basophils % 0.2 Nucleated Red Blood Cells % 0.0 Neutrophils # 4.2 Lymphocytes # 1.0 Monocytes # 0.4 Eosinophils # 0.1 Basophils # 0.0 Nucleated Red Blood Cells # 0.0 Sodium Level 141 Potassium Level 4.0 Chloride Level 103 Carbon Dioxide Level 27 Anion Gap 15 Blood Urea Nitrogen 13 Creatinine 0.75 Glucose Level 102 # Calcium Level 8.9 Phosphorus Level 3.2 Magnesium Level 1.5 L Medications Medications Current Medications Ondansetron HCl (Zofran Inj) 4 mg Q6H PRN IV NAUSEA AND/OR VOMITING; Start at 18:00 Acetaminophen (Tylenol Tab) 650 mg Q6H PRN PO PAIN LEVEL 1-3 OR FEVER; Start at 18:00 Acetaminophen/ Hydrocodone Bitart ([place] (5/325)) 1 tab Q6H PRN PO MODERATE PAIN LEVEL 4-6 Last administered on 12/28/16 10:39; Admin Dose 1 TAB; Start at 18:00 Morphine Sulfate (morphine) 2 mg Q4H PRN IV SEVERE PAIN LEVEL 7-10 Last administered on 12/28/16 02:01; Admin Dose 2 MG; Start 12/26/16 at 18:00 Magnesium Hydroxide (Milk Of Mag) 30 ml DAILY PRN PO CONSTIPATION; Start at 18:00 Bisacodyl (Dulcolax) 5 mg DAILY PRN PO CONSTIPATION; Start 12/26/16 at 18:00 Famotidine (Pepcid) 20 mg Q12 PO Last administered on 12/28/16 08:19; Admin Dose 20 MG; Start 12/26/16 at 21:00 Clopidogrel Bisulfate (plaVIX) 75 mg DAILY PO Last administered on 12/28/16 08 :19; Admin Dose 75 MG; Start 12/27/16 at 09:00 Hydrochlorothiazide (Hydrochlorothiazide) 12.5 mg DAILY PO Last administered on 12/28/16 08:20; Admin Dose 12.5 MG; Start 12/27/16 at 09:00 Amlodipine Besylate (Norvasc) 5 mg DAILY PO Last administered on 12/28/16 08: 19; Admin Dose 5 MG; Start 12/27/16 at 09:00 Atorvastatin Calcium (Lipitor) 10 mg QHS PO Last administered on 12/27/16 20: 16; Admin Dose 10 MG; Start 12/26/16 at 21:00 Hydralazine HCl (Apresoline) 10 mg Q6H PRN IV SBP>160; Start 12/26/16 at 18:00 Losartan Potassium (Cozaar) 100 mg DAILY PO Last administered on 12/28/16 08: 20; Admin Dose 100 MG; Start 12/27/16 at 09:00 Nicotine 1 patch 1 patch DAILY TRANSDERM ; Start 12/26/16 at 18:30 Vancomycin HCl 750 mg/Sodium Chloride 150 ml @ 75 mls/hr Q24H IVPB Last administered on 12/27/16 20:16; Admin Dose 75 MLS/HR; Start 12/27/16 at 20:00 Levofloxacin/ Dextrose (Levaquin 500mg/ D5W 100 ml (Pmx)) 100 ml @ 100 mls/hr Q24H IVPB Last administered on 12/28/16 13:46; Admin Dose 100 MLS/HR; Start at 14:00 Guaifenesin/ Dextromethorphan (Robitussin Dm Liquid Cup) 5 ml Q4H PRN PO Cough Last administered on 12/27/16 15:46; Admin Dose 5 ML; Start 12/27/16 at 16:00 Timolol Maleate (Timoptic 0.5%) 1 drop BID BOTH EYES Last administered on 08:19; Admin Dose 1 DROP; Start 12/27/16 at 21:00 Latanoprost (Xalatan) 1 drop QHS BOTH EYES Last administered on 12/27/16 21:34 ; Admin Dose 1 DROP; Start 12/27/16 at 21:30 Cholecalciferol (Vitamin D) 2,000 unit DAILY PO Last administered on 12/28/16 10:38; Admin Dose 2,000 UNIT; Start 12/28/16 at 10:30 Miscellaneous Information (*Rx Drug Level Order Reminder*) VANCOMYCIN TROUGH LEVEL... ONCE ONCE XX ; Start 12/29/16 at 19:00; Stop 12/29/16 at 19:01 Enoxaparin Sodium (Lovenox) 30 mg DAILY SC ; Start 12/28/16 at 11:00 NIELS KNAPP NP Dec 28, 2016 19:08
[2016-12-28] MEDS: VANCOMYCIN 750 MG in SOD CHLORIDE 0.9% 150 ML IVPB SCH (19:58)
[2016-12-28 21:20] VITALS: BP 132/66; RESP 19
[2016-12-28] MEDS: LATANOPROST 0.005% 2.5 ML OPH BOTH EYES SCH (21:22)
[2016-12-28] MEDS: ATORVASTATIN 10 MG TAB PO SCH (21:22)
[2016-12-29 02:00] VITALS: BP 131/71; RESP 20
[2016-12-29] MEDS: HYDROCODONE/APAP (5/325) TAB PO PRN ×2 (02:08→20:38)
[2016-12-29 07:16] VITALS: BP 125/70; RESP 20
--- NOTE | 2016-12-29 08:21 | PN ---
Date/Time of Note Date/Time of Note DATE: 12/29/16 TIME: 08:19 Assessment/Plan VTE Prophylaxis VTE Prophylaxis Intervention: LMWH Lines/Catheters IV [facility]from [facility] Saline Lock Assessment/Plan Chief Complaint/Hosp Course 1. Left lower extremity nonhealing wounds. Failed outpatient treatment. Continue antibiotics as per infectious diseases. Being followed by podiatry and vascular surgery. 2. Essential hypertension. The patient will be continued on routine antihypertensives. The patient will also be continued on PRN antihypertensives for any systolic blood pressure readings greater than 160 mmHg. 3. Dyslipidemia. The patient will be continued on statins. 4. Peripheral vascular disease. The patient will be continued on antiplatelet therapy. The patient being followed by vascular surgery. 5. Nicotine use. The patient will be provided with a nicotine patch. 6. Normocytic, normochromic anemia. Most probably anemia of chronic disease. Will monitor H&H closely. 7. Fluids, electrolytes, and nutrition. Low-cholesterol diet. 8. DVT prophylaxis. Subcutaneous Lovenox. 9. Gastrointestinal prophylaxis. Histamine 2 receptor blockers. 10. Plan. Continue local wound care. Continue antimicrobials. Await inputs from vascular surgery. Case discussed with . Problems: Subjective 24 Hr Interval Summary Free Text/Dictation Denies any pain. Patient remains afebrile. Exam/Review of Systems Vital Signs Vitals Vital Signs Date Time Temp Pulse Resp B/P Pulse Ox O2 Delivery O2 Flow Rate FiO2 12/29/16 07:16 98.3 76 20 125/70 97 12/28/16 20:00 Room Air Intake and Output 12/28/16 12/28/16 12/29/16 15:00 23:00 07:00 Intake Total 540 ml 1040 ml Balance 540 ml 1040 ml Exam General: Thin, frail looking, 76 year-old female lying in bed in no apparent distress. HEENT: Normocephalic and atraumatic. Eyes: Anicteric sclerae, conjunctivae clear. ENT: Nasal septum midline, oral mucosa moist. Neck supple, no JVD noticed. Respiratory: Bilaterally clear breath sounds. No use of accessory muscles of respiration. No adventitious breath sounds. Cardiovascular: S1, S2 heard. No murmurs or gallops. Abdomen: Soft, nontender, and nondistended. Bowel sounds positive in all 4 quadrants. Genitourinary: Deferred. Extremities: Right lower extremity wound below the medial malleolus. Left lower extremity wound with eschar formation laterally and medially. Left lower extremity edema greater than right lower extremity. Neurologic: Cranial nerves II through XII grossly intact. The patient is awake, alert, and oriented. Results Result Diagram: 12/28/1651612/28/16516 Medications Medications Current Medications Ondansetron HCl (Zofran Inj) 4 mg Q6H PRN IV NAUSEA AND/OR VOMITING; Start at 18:00 Acetaminophen (Tylenol Tab) 650 mg Q6H PRN PO PAIN LEVEL 1-3 OR FEVER; Start at 18:00 Acetaminophen/ Hydrocodone Bitart ([place] (5/325)) 1 tab Q6H PRN PO MODERATE PAIN LEVEL 4-6 Last administered on 12/29/16 02:08; Admin Dose 1 TAB; Start at 18:00 Morphine Sulfate (morphine) 2 mg Q4H PRN IV SEVERE PAIN LEVEL 7-10 Last administered on 12/28/16 22:49; Admin Dose 2 MG; Start 12/26/16 at 18:00 Magnesium Hydroxide (Milk Of Mag) 30 ml DAILY PRN PO CONSTIPATION; Start at 18:00 Bisacodyl (Dulcolax) 5 mg DAILY PRN PO CONSTIPATION; Start 12/26/16 at 18:00 Famotidine (Pepcid) 20 mg Q12 PO Last administered on 12/28/16 21:21; Admin Dose 20 MG; Start 12/26/16 at 21:00 Clopidogrel Bisulfate (plaVIX) 75 mg DAILY PO Last administered on 12/28/16 08 :19; Admin Dose 75 MG; Start 12/27/16 at 09:00 Hydrochlorothiazide (Hydrochlorothiazide) 12.5 mg DAILY PO Last administered on 12/28/16 08:20; Admin Dose 12.5 MG; Start 12/27/16 at 09:00 Amlodipine Besylate (Norvasc) 5 mg DAILY PO Last administered on 12/28/16 08: 19; Admin Dose 5 MG; Start 12/27/16 at 09:00 Atorvastatin Calcium (Lipitor) 10 mg QHS PO Last administered on 12/28/16 21: 22; Admin Dose 10 MG; Start 12/26/16 at 21:00 Hydralazine HCl (Apresoline) 10 mg Q6H PRN IV SBP>160; Start 12/26/16 at 18:00 Losartan Potassium (Cozaar) 100 mg DAILY PO Last administered on 12/28/16 08: 20; Admin Dose 100 MG; Start 12/27/16 at 09:00 Nicotine 1 patch 1 patch DAILY TRANSDERM ; Start 12/26/16 at 18:30 Vancomycin HCl 750 mg/Sodium Chloride 150 ml @ 75 mls/hr Q24H IVPB Last administered on 12/28/16 19:58; Admin Dose 75 MLS/HR; Start 12/27/16 at 20:00 Levofloxacin/ Dextrose (Levaquin 500mg/ D5W 100 ml (Pmx)) 100 ml @ 100 mls/hr Q24H IVPB Last administered on 12/28/16 13:46; Admin Dose 100 MLS/HR; Start at 14:00 Guaifenesin/ Dextromethorphan (Robitussin Dm Liquid Cup) 5 ml Q4H PRN PO Cough Last administered on 12/27/16 15:46; Admin Dose 5 ML; Start 12/27/16 at 16:00 Timolol Maleate (Timoptic 0.5%) 1 drop BID BOTH EYES Last administered on 21:22; Admin Dose 1 DROP; Start 12/27/16 at 21:00 Latanoprost (Xalatan) 1 drop QHS BOTH EYES Last administered on 12/28/16 21:22 ; Admin Dose 1 DROP; Start 12/27/16 at 21:30 Cholecalciferol (Vitamin D) 2,000 unit DAILY PO Last administered on 12/28/16 10:38; Admin Dose 2,000 UNIT; Start 12/28/16 at 10:30 Miscellaneous Information (*Rx Drug Level Order Reminder*) VANCOMYCIN TROUGH LEVEL... ONCE ONCE XX ; Start 12/29/16 at 19:00; Stop 12/29/16 at 19:01 Enoxaparin Sodium (Lovenox) 30 mg DAILY SC ; Start 12/28/16 at 11:00 AMANDA KUNZ NP Dec 29, 2016 08:21 AMANDA KUNZ NP Dec 29, 2016 08:21
[2016-12-29] MEDS: NICOTINE (7 MG/24 HR) PATCH TRANSDERM SCH (09:00)
[2016-12-29] MEDS: FAMOTIDINE 20 MG TAB PO SCH ×2 (09:40→20:24)
[2016-12-29] MEDS: LOSARTAN 50 MG TAB PO SCH (09:40)
[2016-12-29] MEDS: CLOPIDOGREL 75 MG TAB PO SCH (09:40)
[2016-12-29] MEDS: CHOLECALCIFEROL 2,000 UNIT CAP PO SCH (09:40)
[2016-12-29] MEDS: TIMOLOL 0.5% 5 ML OPH BOTH EYES SCH ×2 (09:41→22:27)
[2016-12-29] MEDS: AMLODIPINE 5 MG TAB PO SCH (09:41)
[2016-12-29] MEDS: HYDROCHLOROTHIAZIDE 12.5 MG CAP PO SCH (09:41)
[2016-12-29] MEDS: ENOXAPARIN 30 MG/0.3 ML SYG SC SCH (09:58)
--- NOTE | 2016-12-29 12:45 | CONS ---
Date/Time of Note Date/Time of Note DATE: 12/29/16 TIME: 12:39 Assessment/Plan Assessment/Plan Chief Complaint/Hosp Course ID PROGRESS NOTE CURRENT ABX: DAY #4 => Vanco IV + Levaquin 24H SUMMARY * Awake, alert, thin appearing 76 yo F, VSS, no fevers, no new issues, no complaints offered * Repeat LLEXT wound cx pending * Reena: 12/26/16-0 Rcvd: 12/27/16-1326 Source: LEFT LEG Sp Descrip: Microbiology WOUND CULTURE Preliminary Organism 1 GRAM NEGATIVE MIRANDA QUANTITY 2+ * MICRO 12/19/16 WOUND CULTURE Final Organism 1 PSEUDOMONAS AERUGINOSA QUANTITY 1+ P.AERUG M.I.C. RX --------- --- AMIKACIN <=2 S AZTREONAM S CEFEPIME 2 S CEFTAZIDIME 2 S CIPROFLOXACIN <=0.25 S GENTAMICIN <=1 S IMIPENEM >=16 R LEVOFLOXACIN 0.25 S TOBRAMYCIN <=1 S PIPERACILLIN/TAZOBACTAM 8 S 11/14/16 WOUND CULTURE Final Organism 1 PSEUDOMONAS AERUGINOSA QUANTITY 1+ Organism 2 CORYNEBACTER JEIKEIUM (GRP JK) QUANTITY 4+ Organism 3 ACINETOBACTER BAUMANNII QUANTITY 1+ Organism 4 ALPHA HEMOLYTIC STREP SPP QUANTITY SCANT GROWTH . VIRIDANS GROUP GENERAL: She is an elderly -[place] woman, VSS, NAD HEENT: Unremarkable NECK: Supple, full ROM CHEST: Equal chest rise bilaterally, without dyspnea on observation CV: Radial pulse RRR ABDOMEN: Soft, nontender, nondistended. LOWER EXTREMITIES: 2+ DP pulses/LLEXT DSG C/D/I. ID ASSESSMENT 1. Left lower extremity nonhealing wounds. Failed outpatient treatment. * Followed by podiatry and vascular surgery. 2. Peripheral arterial disease => hx of bilateral lower extremity arterial bypass surgery early 2016 @ [facility] * Continued on antiplatelet therapy 3. Dyslipidemia = on statins. 4. Essential hypertension. 5. GERD 6. Glaucoma -> Timolol eye gtts 7. Tobaccoism -> 1-cig per day ? nicotine patch 8. ?Psych? => Noncompliance with medical tx despite severity of condition (-)MRSA Nares CURRENT ABX: DAY #4 => Vanco IV + Levaquin ID RECOMMENDATIONS 1. Continue current ABX 2. Suspect PSAR on repeat wound cx w/failed OP coverage, will add Azactam IV as PSAR was sensitive on 12/19 wound cx * "Double ABX" coverage for PSAR is warranted strategy attempt to avoid MDRO. 3. Smoking cessation -> strongly advocate . Problems: Consultation Date/Type/Reason Admit Date/Time Dec 26, 2016 at 14:43 Type of Consultation: ID Exam/Review of Systems Vital Signs Vitals Vital Signs Date Time Temp Pulse Resp B/P Pulse Ox O2 Delivery O2 Flow Rate FiO2 12/29/16 07:16 98.3 76 20 125/70 97 12/28/16 20:00 Room Air Intake and Output 12/28/16 12/28/16 12/29/16 15:00 23:00 07:00 Intake Total 540 ml 1040 ml Balance 540 ml 1040 ml Results Result Diagram: 12/28/1651612/28/16516 Medications Medications Current Medications Ondansetron HCl (Zofran Inj) 4 mg Q6H PRN IV NAUSEA AND/OR VOMITING; Start at 18:00 Acetaminophen (Tylenol Tab) 650 mg Q6H PRN PO PAIN LEVEL 1-3 OR FEVER; Start at 18:00 Acetaminophen/ Hydrocodone Bitart ([place] (5/325)) 1 tab Q6H PRN PO MODERATE PAIN LEVEL 4-6 Last administered on 12/29/16 02:08; Admin Dose 1 TAB; Start at 18:00 Morphine Sulfate (morphine) 2 mg Q4H PRN IV SEVERE PAIN LEVEL 7-10 Last administered on 12/28/16 22:49; Admin Dose 2 MG; Start 12/26/16 at 18:00 Magnesium Hydroxide (Milk Of Mag) 30 ml DAILY PRN PO CONSTIPATION; Start at 18:00 Bisacodyl (Dulcolax) 5 mg DAILY PRN PO CONSTIPATION; Start 12/26/16 at 18:00 Famotidine (Pepcid) 20 mg Q12 PO Last administered on 12/29/16 09:40; Admin Dose 20 MG; Start 12/26/16 at 21:00 Clopidogrel Bisulfate (plaVIX) 75 mg DAILY PO Last administered on 12/29/16 09 :40; Admin Dose 75 MG; Start 12/27/16 at 09:00 Hydrochlorothiazide (Hydrochlorothiazide) 12.5 mg DAILY PO Last administered on 12/29/16 09:41; Admin Dose 12.5 MG; Start 12/27/16 at 09:00 Amlodipine Besylate (Norvasc) 5 mg DAILY PO Last administered on 12/29/16 09: 41; Admin Dose 5 MG; Start 12/27/16 at 09:00 Atorvastatin Calcium (Lipitor) 10 mg QHS PO Last administered on 12/28/16 21: 22; Admin Dose 10 MG; Start 12/26/16 at 21:00 Hydralazine HCl (Apresoline) 10 mg Q6H PRN IV SBP>160; Start 12/26/16 at 18:00 Losartan Potassium (Cozaar) 100 mg DAILY PO Last administered on 12/29/16 09: 40; Admin Dose 100 MG; Start 12/27/16 at 09:00 Nicotine 1 patch 1 patch DAILY TRANSDERM ; Start 12/26/16 at 18:30 Vancomycin HCl 750 mg/Sodium Chloride 150 ml @ 75 mls/hr Q24H IVPB Last administered on 12/28/16 19:58; Admin Dose 75 MLS/HR; Start 12/27/16 at 20:00 Levofloxacin/ Dextrose (Levaquin 500mg/ D5W 100 ml (Pmx)) 100 ml @ 100 mls/hr Q24H IVPB Last administered on 12/28/16 13:46; Admin Dose 100 MLS/HR; Start at 14:00 Guaifenesin/ Dextromethorphan (Robitussin Dm Liquid Cup) 5 ml Q4H PRN PO Cough Last administered on 12/27/16 15:46; Admin Dose 5 ML; Start 12/27/16 at 16:00 Timolol Maleate (Timoptic 0.5%) 1 drop BID BOTH EYES Last administered on 09:41; Admin Dose 1 DROP; Start 12/27/16 at 21:00 Latanoprost (Xalatan) 1 drop QHS BOTH EYES Last administered on 12/28/16 21:22 ; Admin Dose 1 DROP; Start 12/27/16 at 21:30 Cholecalciferol (Vitamin D) 2,000 unit DAILY PO Last administered on 12/29/16 09:40; Admin Dose 2,000 UNIT; Start 12/28/16 at 10:30 Miscellaneous Information (*Rx Drug Level Order Reminder*) VANCOMYCIN TROUGH LEVEL... ONCE ONCE XX ; Start 12/29/16 at 19:00; Stop 12/29/16 at 19:01 Enoxaparin Sodium (Lovenox) 30 mg DAILY SC Last administered on 12/29/16 09:58 ; Admin Dose 30 MG; Start 12/28/16 at 11:00 NIELS KNAPP NP Dec 29, 2016 12:45
[2016-12-29 13:12] VITALS: BP 118/58; RESP 20
[2016-12-29] MEDS: morphine 2 MG INJ IV PRN (13:34)
[2016-12-29] MEDS: LEVOFLOXACIN 500MG/D5W (PMX) 100 ML IVPB SCH (13:45)
[2016-12-29] MEDS: AZTREONAM 1 GM/NS (PMX) 50 ML IVPB SCH ×2 (14:49→22:28)
[2016-12-29 19:25] VITALS: BP 139/60; RESP 20
[2016-12-29] MEDS: VANCOMYCIN 750 MG in SOD CHLORIDE 0.9% 150 ML IVPB SCH (20:23)
[2016-12-29] MEDS: LATANOPROST 0.005% 2.5 ML OPH BOTH EYES SCH (20:24)
[2016-12-29] MEDS: ATORVASTATIN 10 MG TAB PO SCH (20:24)
[2016-12-29 22:08] LABS: ADD UMIC YES; UR AMORPHOUS CRYSTAL FEW /HPF (NONE SEEN); UR ASCORBIC ACID NEGATIVE (NEGATIVE); UR BILIRUBIN (Dip) NEGATIVE (NEGATIVE); UR BLOOD (Dip) 1+ mg/dL (NEGATIVE); UR CLARITY CLOUDY (CLEAR); UR COLOR YELLOW (YELLOW); UR GLUCOSE (Dip) NEGATIVE (NEGATIVE); UR KETONES (Dip) NEGATIVE (NEGATIVE); UR LEUKOCYTE ESTERASE (Dip) NEGATIVE Leu/ul (NEGATIVE); UR NITRITE (Dip) NEGATIVE (NEGATIVE); UR RBC 9 /HPF (0-5); UR SPECIFIC GRAVITY (Dip) 1.012 (1.003-1.030); UR SQUAMOUS EPITHELIAL CELL MODERATE /HPF (FEW); UR TOTAL PROTEIN (Dip) 2+ mg/dl (NEGATIVE); UR UROBILINOGEN (Dip) NEGATIVE (NEGATIVE)
[2016-12-29 22:18] LABS: CANNABINOIDS Positive (NEGATIVE)
[2016-12-29 22:19] LABS: BARBITURATES Negative (NEGATIVE); BENZODIAZEPINES Negative (NEGATIVE); COCAINE Negative (NEGATIVE); OPIATES Positive (NEGATIVE)
[2016-12-30 02:16] VITALS: BP 127/66; RESP 18
[2016-12-30] MEDS: morphine 2 MG INJ IV PRN ×2 (02:20→11:40)
[2016-12-30 05:56] LABS: BASOPHILS % 0.2 % (0.0-2.0); EOSINOPHILS # 0.1 10^3/ul (0.0-0.5); EOSINOPHILS % 2.3 % (0.0-7.0); HEMOGLOBIN 9.8 g/dl (12.0-16.0); LYMPHOCYTES # 0.9 10^3/ul (0.8-2.9); LYMPHOCYTES % 18.1 % (15.0-51.0); MEAN CORPUSCULAR HEMOGLOBIN 29.5 pg (29.0-33.0); MEAN CORPUSCULAR HGB CONC 32.7 g/dl (32.0-37.0); MEAN CORPUSCULAR VOLUME 90.4 fl (82.0-101.0); MEAN PLATELET VOLUME 8.9 fl (7.4-10.4); MONOCYTE # 0.5 10^3/ul (0.3-0.9); MONOCYTES % 9.6 % (0.0-11.0); NEUTROPHIL # 3.3 10^3/ul (1.6-7.5); NEUTROPHILS % 69.2 % (39.0-77.0); PLATELET COUNT 430 10^3/UL (140-415); RED BLOOD COUNT 3.32 10^6/ul (4.20-5.40); WHITE BLOOD COUNT 4.8 10^3/ul (4.8-10.8)
[2016-12-30 06:02] LABS: CREATININE 0.74 mg/dl (0.44-1.00); POTASSIUM 3.9 mmol/L (3.5-5.1)
[2016-12-30 06:30] LABS: MAGNESIUM 1.5 mg/dl (1.7-2.5); PHOSPHORUS 3.7 mg/dl (2.5-4.9)
[2016-12-30 07:44] VITALS: BP 118/63; RESP 18
[2016-12-30] MEDS: VANCOMYCIN 500MG/NS (PMX) 100 ML IVPB SCH ×2 (08:47→20:08)
[2016-12-30] MEDS: CLOPIDOGREL 75 MG TAB PO SCH (08:48)
[2016-12-30] MEDS: FAMOTIDINE 20 MG TAB PO SCH ×2 (08:48→21:04)
[2016-12-30] MEDS: CHOLECALCIFEROL 2,000 UNIT CAP PO SCH (08:48)
[2016-12-30] MEDS: ENOXAPARIN 30 MG/0.3 ML SYG SC SCH (08:52)
[2016-12-30] MEDS: NICOTINE (7 MG/24 HR) PATCH TRANSDERM SCH (09:00)
[2016-12-30] MEDS: HYDROCHLOROTHIAZIDE 12.5 MG CAP PO SCH (09:00)
[2016-12-30] MEDS: AMLODIPINE 5 MG TAB PO SCH (09:00)
[2016-12-30] MEDS: LOSARTAN 50 MG TAB PO SCH (09:00)
[2016-12-30] MEDS: TIMOLOL 0.5% 5 ML OPH BOTH EYES SCH ×2 (09:29→21:05)
[2016-12-30] MEDS: AZTREONAM 1 GM/NS (PMX) 50 ML IVPB SCH ×2 (09:29→21:09)
--- NOTE | 2016-12-30 13:30 | CONS ---
Date/Time of Note Date/Time of Note DATE: 12/30/16 TIME: 13:24 Assessment/Plan Assessment/Plan Chief Complaint/Hosp Course Assessment/Plan Chief Complaint/Hosp Course ID PROGRESS NOTE CURRENT ABX: DAY #4 => Vanco IV + Levaquin 24H SUMMARY * Awake. Alert. No Acute Distress. * Repeat LLEXT wound cx pending * Reena: 12/26/[id number] Rcvd: 12/27/16-1326 Source: LEFT LEG Sp Descrip: Microbiology WOUND CULTURE Preliminary Organism 1 GRAM NEGATIVE MIRANDA QUANTITY 2+ * MICRO 12/19/16 WOUND CULTURE Final Organism 1 PSEUDOMONAS AERUGINOSA QUANTITY 1+ P.AERUG M.I.C. RX --------- --- AMIKACIN <=2 S AZTREONAM S CEFEPIME 2 S CEFTAZIDIME 2 S CIPROFLOXACIN <=0.25 S GENTAMICIN <=1 S IMIPENEM >=16 R LEVOFLOXACIN 0.25 S TOBRAMYCIN <=1 S PIPERACILLIN/TAZOBACTAM 8 S 11/14/16 WOUND CULTURE Final Organism 1 PSEUDOMONAS AERUGINOSA QUANTITY 1+ Organism 2 CORYNEBACTER JEIKEIUM (GRP JK) QUANTITY 4+ Organism 3 ACINETOBACTER BAUMANNII QUANTITY 1+ Organism 4 ALPHA HEMOLYTIC STREP SPP QUANTITY SCANT GROWTH . VIRIDANS GROUP GENERAL: She is an elderly -Congolese woman, VSS, NAD HEENT: Unremarkable NECK: Supple, full ROM CHEST: Equal chest rise bilaterally, without dyspnea on observation CV: Radial pulse RRR ABDOMEN: Soft, nontender, nondistended. LOWER EXTREMITIES: 2+ DP pulses/LLEXT DSG C/D/I. ID ASSESSMENT 1. Left lower extremity nonhealing wounds. Failed outpatient treatment. * Followed by podiatry and vascular surgery. 2. Peripheral arterial disease => hx of bilateral lower extremity arterial bypass surgery early 2016 @ [facility] * Continued on antiplatelet therapy 3. Dyslipidemia = on statins. 4. Essential hypertension. 5. GERD 6. Glaucoma -> Timolol eye gtts 7. Tobaccoism -> 1-cig per day ? nicotine patch 8. ?Psych? => Noncompliance with medical tx despite severity of condition (-)MRSA Nares CURRENT ABX: DAY #4 => Vanco IV + Levaquin ID RECOMMENDATIONS 1. Continue current ABX 2. Suspect PSAR on repeat wound cx w/failed OP coverage, will add Azactam IV as PSAR was sensitive on 12/19 wound cx * "Double ABX" coverage for PSAR is warranted strategy attempt to avoid MDRO. 3. Smoking Cessation education. Pain Management. Monitor Labs. Problems: Consultation Date/Type/Reason Admit Date/Time Dec 26, 2016 at 14:43 Initial Consult Date Type of Consultation: ID Exam/Review of Systems Vital Signs Vitals Vital Signs Date Time Temp Pulse Resp B/P Pulse Ox O2 Delivery O2 Flow Rate FiO2 12/30/16 07:44 98.5 72 18 118/63 98 12/29/16 20:00 Room Air Intake and Output 12/29/16 12/29/16 12/30/16 15:00 23:00 07:00 Intake Total 480 ml 1210 ml 1000 ml Output Total 1400 ml Balance 480 ml -190 ml 1000 ml Results Result Diagram: 12/30/16 0504 12/30/16 0504 Results 24 hrs Laboratory Tests Test 12/29/16 18:56 12/29/16 19:55 12/30/16 05:04 Vancomycin Level Trough 5.8 L Urine Color YELLOW Urine Clarity CLOUDY A Urine pH 7.0 Urine Specific [place] 1.012 Urine Ketones NEGATIVE Urine Nitrite NEGATIVE Urine Bilirubin NEGATIVE Urine Urobilinogen NEGATIVE Urine Leukocyte Esterase NEGATIVE Urine Microscopic RBC 9 H Urine Microscopic WBC 3 Urine Squamous Epithelial Cells MODERATE Urine Amorphous Crystals FEW A Urine Hemoglobin 1+ H Urine Glucose NEGATIVE Urine Total Protein 2+ H Urine Opiates Screen Positive Urine Barbiturates Negative Urine Amphetamines Screen Negative Urine Benzodiazepines Screen Negative Urine Cocaine Screen Negative Urine Cannabinoids Positive White Blood Count 4.8 Red Blood Count 3.32 L Hemoglobin 9.8 L Hematocrit 30.0 L Mean Corpuscular Volume 90.4 Mean Corpuscular Hemoglobin 29.5 Mean Corpuscular Hemoglobin Concent 32.7 Red Cell Distribution Width 13.0 Platelet Count 430 H Mean Platelet Volume 8.9 Neutrophils % 69.2 Lymphocytes % 18.1 Monocytes % 9.6 Eosinophils % 2.3 Basophils % 0.2 Nucleated Red Blood Cells % 0.0 Neutrophils # 3.3 Lymphocytes # 0.9 Monocytes # 0.5 Eosinophils # 0.1 Basophils # 0.0 Nucleated Red Blood Cells # 0.0 Sodium Level 141 Potassium Level 3.9 Chloride Level 102 Carbon Dioxide Level 28 Anion Gap 15 Blood Urea Nitrogen 13 Creatinine 0.74 Glucose Level 100 Calcium Level 9.0 Phosphorus Level 3.7 Magnesium Level 1.5 L Medications Medications Current Medications Ondansetron HCl (Zofran Inj) 4 mg Q6H PRN IV NAUSEA AND/OR VOMITING; Start at 18:00 Acetaminophen (Tylenol Tab) 650 mg Q6H PRN PO PAIN LEVEL 1-3 OR FEVER; Start at 18:00 Acetaminophen/ Hydrocodone Bitart ([place] (5/325)) 1 tab Q6H PRN PO MODERATE PAIN LEVEL 4-6 Last administered on 12/29/16 20:38; Admin Dose 1 TAB; Start at 18:00 Morphine Sulfate (morphine) 2 mg Q4H PRN IV SEVERE PAIN LEVEL 7-10 Last administered on 12/30/16 11:40; Admin Dose 2 MG; Start 12/26/16 at 18:00 Magnesium Hydroxide (Milk Of Mag) 30 ml DAILY PRN PO CONSTIPATION; Start at 18:00 Bisacodyl (Dulcolax) 5 mg DAILY PRN PO CONSTIPATION; Start 12/26/16 at 18:00 Famotidine (Pepcid) 20 mg Q12 PO Last administered on 12/30/16 08:48; Admin Dose 20 MG; Start 12/26/16 at 21:00 Clopidogrel Bisulfate (plaVIX) 75 mg DAILY PO Last administered on 12/30/16 08 :48; Admin Dose 75 MG; Start 12/27/16 at 09:00 Hydrochlorothiazide (Hydrochlorothiazide) 12.5 mg DAILY PO Last administered on 12/29/16 09:41; Admin Dose 12.5 MG; Start 12/27/16 at 09:00 Amlodipine Besylate (Norvasc) 5 mg DAILY PO Last administered on 12/29/16 09: 41; Admin Dose 5 MG; Start 12/27/16 at 09:00 Atorvastatin Calcium (Lipitor) 10 mg QHS PO Last administered on 12/29/16 20: 24; Admin Dose 10 MG; Start 12/26/16 at 21:00 Hydralazine HCl (Apresoline) 10 mg Q6H PRN IV SBP>160; Start 12/26/16 at 18:00 Losartan Potassium (Cozaar) 100 mg DAILY PO Last administered on 12/29/16 09: 40; Admin Dose 100 MG; Start 12/27/16 at 09:00 Nicotine 1 patch 1 patch DAILY TRANSDERM ; Start 12/26/16 at 18:30 Levofloxacin/ Dextrose (Levaquin 500mg/ D5W 100 ml (Pmx)) 100 ml @ 100 mls/hr Q24H IVPB Last administered on 12/29/16 13:45; Admin Dose 100 MLS/HR; Start at 14:00 Guaifenesin/ Dextromethorphan (Robitussin Dm Liquid Cup) 5 ml Q4H PRN PO Cough Last administered on 12/27/16 15:46; Admin Dose 5 ML; Start 12/27/16 at 16:00 Timolol Maleate (Timoptic 0.5%) 1 drop BID BOTH EYES Last administered on 09:29; Admin Dose 1 DROP; Start 12/27/16 at 21:00 Latanoprost (Xalatan) 1 drop QHS BOTH EYES Last administered on 12/29/16 20:24 ; Admin Dose 1 DROP; Start 12/27/16 at 21:30 Cholecalciferol (Vitamin D) 2,000 unit DAILY PO Last administered on 12/30/16 08:48; Admin Dose 2,000 UNIT; Start 12/28/16 at 10:30 Enoxaparin Sodium 30 mg 30 mg DAILY SC Last administered on 12/30/16 08:52; Admin Dose 30 MG; Start 12/28/16 at 11:00 Aztreonam 50 ml @ 100 mls/hr Q12 IVPB Last administered on 12/30/16 09:29; Admin Dose 100 MLS/HR; Start 12/29/16 at 14:00 Vancomycin HCl (Vancocin) 100 ml @ 100 mls/hr Q12H IVPB Last administered on t 08:47; Admin Dose 100 MLS/HR; Start 12/30/16 at 08:00 VERONICA CORTEZ NP Dec 30, 2016 13:30
[2016-12-30 14:09] VITALS: BP 122/61; RESP 20
--- NOTE | 2016-12-30 14:25 | PN ---
Date/Time of Note Date/Time of Note DATE: 12/30/16 TIME: 14:23 Assessment/Plan VTE Prophylaxis VTE Prophylaxis Intervention: LMWH Lines/Catheters IV [facility] Assessment/Plan Chief Complaint/Hosp Course Assessment and plan 1. Left lower extremity nonhealing wounds. Patient did fail outpatient treatment. On antibiotics for now. Follow-up with podiatry vascular surgeon recommendations 2. Essential hypertension. Appears stable at present. Will resume antihypertensives and adjust needed 3. History of dyslipidemia. Patient resumed on statin medication 4. PVD. On heparin therapy. Vascular surgeon following. Awaiting input. 5. Normocytic normochromic anemia likely of chronic disease. H&H remained stable at present. Will monitor for now. Disposition plan: Continue with local wound care. Continue with antimicrobials. Monitor for clinical improvement of left lower extremity wound. Await vascular surgeon input. Discussed plan of care with Dr. Lezama Problems: Subjective 24 Hr Interval Summary Free Text/Dictation Persistent. Denies any pain at this time. 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, nl mental status, nl speech Results Result Diagram: 12/30/16 0504 12/30/16 0504 Results 24 hrs Laboratory Tests Test 12/29/16 18:56 12/29/16 19:55 12/30/16 05:04 Vancomycin Level Trough 5.8 L Urine Color YELLOW Urine Clarity CLOUDY A Urine pH 7.0 Urine Specific [place] 1.012 Urine Ketones NEGATIVE Urine Nitrite NEGATIVE Urine Bilirubin NEGATIVE Urine Urobilinogen NEGATIVE Urine Leukocyte Esterase NEGATIVE Urine Microscopic RBC 9 H Urine Microscopic WBC 3 Urine Squamous Epithelial Cells MODERATE Urine Amorphous Crystals FEW A Urine Hemoglobin 1+ H Urine Glucose NEGATIVE Urine Total Protein 2+ H Urine Opiates Screen Positive Urine Barbiturates Negative Urine Amphetamines Screen Negative Urine Benzodiazepines Screen Negative Urine Cocaine Screen Negative Urine Cannabinoids Positive White Blood Count 4.8 Red Blood Count 3.32 L Hemoglobin 9.8 L Hematocrit 30.0 L Mean Corpuscular Volume 90.4 Mean Corpuscular Hemoglobin 29.5 Mean Corpuscular Hemoglobin Concent 32.7 Red Cell Distribution Width 13.0 Platelet Count 430 H Mean Platelet Volume 8.9 Neutrophils % 69.2 Lymphocytes % 18.1 Monocytes % 9.6 Eosinophils % 2.3 Basophils % 0.2 Nucleated Red Blood Cells % 0.0 Neutrophils # 3.3 Lymphocytes # 0.9 Monocytes # 0.5 Eosinophils # 0.1 Basophils # 0.0 Nucleated Red Blood Cells # 0.0 Sodium Level 141 Potassium Level 3.9 Chloride Level 102 Carbon Dioxide Level 28 Anion Gap 15 Blood Urea Nitrogen 13 Creatinine 0.74 Glucose Level 100 Calcium Level 9.0 Phosphorus Level 3.7 Magnesium Level 1.5 L Medications Medications Current Medications Ondansetron HCl (Zofran Inj) 4 mg Q6H PRN IV NAUSEA AND/OR VOMITING; Start at 18:00 Acetaminophen (Tylenol Tab) 650 mg Q6H PRN PO PAIN LEVEL 1-3 OR FEVER; Start at 18:00 Acetaminophen/ Hydrocodone Bitart ([place] (5/325)) 1 tab Q6H PRN PO MODERATE PAIN LEVEL 4-6 Last administered on 12/29/16 20:38; Admin Dose 1 TAB; Start at 18:00 Magnesium Hydroxide (Milk Of Mag) 30 ml DAILY PRN PO CONSTIPATION; Start at 18:00 Bisacodyl (Dulcolax) 5 mg DAILY PRN PO CONSTIPATION; Start 12/26/16 at 18:00 Famotidine (Pepcid) 20 mg Q12 PO Last administered on 12/30/16 08:48; Admin Dose 20 MG; Start 12/26/16 at 21:00 Clopidogrel Bisulfate (plaVIX) 75 mg DAILY PO Last administered on 12/30/16 08 :48; Admin Dose 75 MG; Start 12/27/16 at 09:00 Hydrochlorothiazide (Hydrochlorothiazide) 12.5 mg DAILY PO Last administered on 12/29/16 09:41; Admin Dose 12.5 MG; Start 12/27/16 at 09:00 Amlodipine Besylate (Norvasc) 5 mg DAILY PO Last administered on 12/29/16 09: 41; Admin Dose 5 MG; Start 12/27/16 at 09:00 Atorvastatin Calcium (Lipitor) 10 mg QHS PO Last administered on 12/29/16 20: 24; Admin Dose 10 MG; Start 12/26/16 at 21:00 Hydralazine HCl (Apresoline) 10 mg Q6H PRN IV SBP>160; Start 12/26/16 at 18:00 Losartan Potassium (Cozaar) 100 mg DAILY PO Last administered on 12/29/16 09: 40; Admin Dose 100 MG; Start 12/27/16 at 09:00 Nicotine 1 patch 1 patch DAILY TRANSDERM ; Start 12/26/16 at 18:30 Levofloxacin/ Dextrose (Levaquin 500mg/ D5W 100 ml (Pmx)) 100 ml @ 100 mls/hr Q24H IVPB Last administered on 12/29/16 13:45; Admin Dose 100 MLS/HR; Start at 14:00 Guaifenesin/ Dextromethorphan (Robitussin Dm Liquid Cup) 5 ml Q4H PRN PO Cough Last administered on 12/27/16 15:46; Admin Dose 5 ML; Start 12/27/16 at 16:00 Timolol Maleate (Timoptic 0.5%) 1 drop BID BOTH EYES Last administered on 09:29; Admin Dose 1 DROP; Start 12/27/16 at 21:00 Latanoprost (Xalatan) 1 drop QHS BOTH EYES Last administered on 12/29/16 20:24 ; Admin Dose 1 DROP; Start 12/27/16 at 21:30 Cholecalciferol (Vitamin D) 2,000 unit DAILY PO Last administered on 12/30/16 08:48; Admin Dose 2,000 UNIT; Start 12/28/16 at 10:30 Enoxaparin Sodium 30 mg 30 mg DAILY SC Last administered on 12/30/16 08:52; Admin Dose 30 MG; Start 12/28/16 at 11:00 Aztreonam 50 ml @ 100 mls/hr Q12 IVPB Last administered on 12/30/16 09:29; Admin Dose 100 MLS/HR; Start 12/29/16 at 14:00 Vancomycin HCl (Vancocin) 100 ml @ 100 mls/hr Q12H IVPB Last administered on 08:47; Admin Dose 100 MLS/HR; Start 12/30/16 at 08:00 Morphine Sulfate (morphine) 2 mg Q4H PRN IV SEVERE PAIN LEVEL 7-10; Start 12/30 at 14:15 CATHERINE CORNELIUS Dec 30, 2016 14:25
[2016-12-30] MEDS: LEVOFLOXACIN 500MG/D5W (PMX) 100 ML IVPB SCH (14:28)
[2016-12-30] MEDS: morphine 4 MG/ML VIAL IV PRN (17:03)
[2016-12-30] MEDS: HYDROCODONE/APAP (5/325) TAB PO PRN (20:09)
[2016-12-30 20:12] VITALS: BP 123/67; RESP 20
[2016-12-30] MEDS: ATORVASTATIN 10 MG TAB PO SCH (21:04)
[2016-12-30] MEDS: LATANOPROST 0.005% 2.5 ML OPH BOTH EYES SCH (23:22)
[2016-12-31 02:37] VITALS: BP 111/57; RESP 20
[2016-12-31] MEDS: HYDROCODONE/APAP (5/325) TAB PO PRN ×2 (06:00→11:43)
[2016-12-31 07:48] VITALS: BP 117/56; RESP 20
[2016-12-31] MEDS: VANCOMYCIN 500MG/NS (PMX) 100 ML IVPB SCH ×2 (08:48→20:58)
[2016-12-31] MEDS: HYDROCHLOROTHIAZIDE 12.5 MG CAP PO SCH (08:49)
[2016-12-31] MEDS: LOSARTAN 50 MG TAB PO SCH (08:49)
[2016-12-31] MEDS: CLOPIDOGREL 75 MG TAB PO SCH (08:49)
[2016-12-31] MEDS: CHOLECALCIFEROL 2,000 UNIT CAP PO SCH (08:49)
[2016-12-31] MEDS: AMLODIPINE 5 MG TAB PO SCH (08:49)
[2016-12-31] MEDS: TIMOLOL 0.5% 5 ML OPH BOTH EYES SCH ×2 (08:50→20:51)
[2016-12-31] MEDS: FAMOTIDINE 20 MG TAB PO SCH ×2 (09:00→20:50)
[2016-12-31] MEDS: NICOTINE (7 MG/24 HR) PATCH TRANSDERM SCH (09:00)
[2016-12-31] MEDS: ENOXAPARIN 30 MG/0.3 ML SYG SC SCH (09:06)
[2016-12-31] MEDS: AZTREONAM 1 GM/NS (PMX) 50 ML IVPB SCH (10:20)
--- NOTE | 2016-12-31 10:48 | CONS ---
DATE OF ADMISSION: 12/26/2016 DATE OF CONSULTATION: 12/28/2016 REFERRING PHYSICIAN:: DR. DAKOTA DRUMMOND. REASON FOR CONSULTATION: Left calf infected ulcer. HISTORY OF PRESENT ILLNESS: This is a very pleasant 76-year-old woman. I had [facility]. She has a long history of venous stasis ulcers of both lower extremities. She has had bilateral fem-pop bypasses that were done over at [facility] for chronic SFA occlusions. She had been seeing Dr[facility] Ayala [facility]. Her wounds,. especially the left leg wound looked really bad yesterday, so he sent her for admission. PAST MEDICAL HISTORY: Significant for hypertension, hypercholesterolemia, and peripheral arterial disease. She is not diabetic and she is a long-time smoker. MEDICATION: 1. Vitamin D. 2. Xalatan. 3. Timoptic. 4. Vancomycin. 5. Robitussin. 6. Levaquin. 7. Plavix. 8. Hydrochlorothiazide. 9. Norvasc. Cozaar. 10. Pepcid. 11. Subcu heparin. Lipitor. 12. Nicotine patch. 13. Zofran. 14. Magnesium. 15. Hydralazine. PAST SURGICAL HISTORY: Significant for bilateral fem-pop bypass surgeries. She also had a hysterectomy. SOCIAL HISTORY: She is a pack-a-day smoker for many years. She is originally from [place]. She moved here many years ago. She does not drink or use any illicit drugs. FAMILY HISTORY: Noncontributory. REVIEW OF SYSTEMS: She denies any chest pain, shortness of breath. No nausea, vomiting, diarrhea. No fever, no chills. No recent weight gain, weight loss. No abdominal or back pain. She has chronic leg swelling and skin changes, and chronic venous stasis ulcers in both medial ankles for several years. PHYSICAL EXAMINATION: GENERAL APPEARANCE: She is an elderly woman. She is in no acute distress. She has no pain now. She says it hurts when she walks. VITAL SIGNS: She has been afebrile. Blood pressure is 138/74, heart rate 86, respiratory rate is 18. 96 percent saturation on room air. NECK: She has 2+ carotid pulses bilaterally. LUNGS: Lungs are clear. EXTREMITIES: 2+ radial and brachial pulses bilaterally. She has 2+ femoral and popliteal pulses bilaterally. 2+ DP pulses bilaterally. She has a large left medial, lateral ankle and calf chronic venous stasis ulcer. There was a distal necrotic eschar over the wound which is beginning to lift off. There is a slight Pseudomonal odor to the wounds. Her culture from last week is growing Pseudomonas. She had a culture previously a month prior that also grew Pseudomonas. HEART: Regular rate and rhythm. ABDOMEN: Soft, nontender, nondistended. STUDIES: She had recent arterial studies done [facility]. She has normal arterial circulation in both legs. Both the fem-pop bypass grafts were patent. Her white count is actually normal and other labs are all essentially normal. IMPRESSION: Infected left medial ankle venous stasis ulcer with history of mixed arterial and venous insufficiency. She has had bilateral fem-pop bypass grafts that are working well. She has palpable pedal pulses with normal arterial circulation. She needs antibiotics. Dr. Llanes is seeing her for this. She would likely benefit from debridement of these wounds at some point, once the infection is a little better controlled and removing all the necrotic eschar would benefit. Her circulation is good. Once she has been debrided and the infection is improved, I would resume four-layer compression therapy to help get the wounds to heal. Dictated By: Jimi Azul MD /sameer/leroy /Document#: [id number] CC: Dmitri Ayala DPM; Jose Llanes MD; Dr. Drummond;*[facility]*
--- NOTE | 2016-12-31 14:05 | PN ---
Date/Time of Note Date/Time of Note DATE: 12/31/16 TIME: 14:04 Assessment/Plan VTE Prophylaxis VTE Prophylaxis Intervention: LMWH Lines/Catheters IV Catheter Type (from Nrs): Saline Lock Assessment/Plan Chief Complaint/Hosp Course Assessment and plan 1. Left lower extremity nonhealing wounds. Patient did fail outpatient treatment. On antibiotics for now. Follow-up with podiatry vascular surgeon recommendations 2. Essential hypertension. Appears stable at present. Will resume antihypertensives and adjust needed 3. History of dyslipidemia. Patient resumed on statin medication 4. PVD. On heparin therapy. Vascular surgeon following. Plan for surgical intervention once wound infection better 5. Normocytic normochromic anemia likely of chronic disease. H&H remained stable at present. Will monitor for now. Disposition plan: Continue with local wound care. Continue with antimicrobials. Monitor for clinical improvement of left lower extremity wound. Tentative plan for surgical intervention once bilateral lower extremity wounds improved. Will follow up. Discussed plan of care with Dr. Neal Problems: Subjective 24 Hr Interval Summary Free Text/Dictation Still reports having some bilateral foot discomfort. Little better today. Exam/Review of Systems Vital Signs Vitals Vital Signs Date Time Temp Pulse Resp B/P Pulse Ox O2 Delivery O2 Flow Rate FiO2 12/31/16 07:48 99.0 74 20 117/56 98 12/30/16 20:00 Room Air Intake and Output 12/30/16 12/30/16 12/31/16 14:59 22:59 06:59 Intake Total 150 ml 1450 ml 300 ml Output Total 1800 ml 1400 ml Balance 150 ml -350 ml -1100 ml Exam Constitutional: alert, oriented, little anxious Head: normocephalic Respiratory: clear to auscultation Cardiovascular: regular rate and rhythm Gastrointestinal: non-tender, soft Musculoskeletal: other (bilateral lower extremity wounds ) dressing in place Neurological: CROP SCOUT II-XII intact, nl mental status, nl speech Results Result Diagram: 12/30/16 0504 12/30/16 0504 Medications Medications Current Medications Ondansetron HCl (Zofran Inj) 4 mg Q6H PRN IV NAUSEA AND/OR VOMITING; Start at 18:00 Acetaminophen (Tylenol Tab) 650 mg Q6H PRN PO PAIN LEVEL 1-3 OR FEVER; Start at 18:00 Acetaminophen/ Hydrocodone Bitart ([place] (5/325)) 1 tab Q6H PRN PO MODERATE PAIN LEVEL 4-6 Last administered on 12/31/16 11:43; Admin Dose 1 TAB; Start at 18:00 Magnesium Hydroxide (Milk Of Mag) 30 ml DAILY PRN PO CONSTIPATION; Start at 18:00 Bisacodyl (Dulcolax) 5 mg DAILY PRN PO CONSTIPATION Last administered on 21:04; Admin Dose 5 MG; Start 12/26/16 at 18:00 Famotidine (Pepcid) 20 mg Q12 PO Last administered on 12/31/16 09:00; Admin Dose 20 MG; Start 12/26/16 at 21:00 Clopidogrel Bisulfate (plaVIX) 75 mg DAILY PO Last administered on 12/31/16 08 :49; Admin Dose 75 MG; Start 12/27/16 at 09:00 Hydrochlorothiazide (Hydrochlorothiazide) 12.5 mg DAILY PO Last administered on 12/31/16 08:49; Admin Dose 12.5 MG; Start 12/27/16 at 09:00 Amlodipine Besylate (Norvasc) 5 mg DAILY PO Last administered on 12/31/16 08: 49; Admin Dose 5 MG; Start 12/27/16 at 09:00 Atorvastatin Calcium (Lipitor) 10 mg QHS PO Last administered on 12/30/16 21: 04; Admin Dose 10 MG; Start 12/26/16 at 21:00 Hydralazine HCl (Apresoline) 10 mg Q6H PRN IV SBP>160; Start 12/26/16 at 18:00 Losartan Potassium (Cozaar) 100 mg DAILY PO Last administered on 12/31/16 08: 49; Admin Dose 100 MG; Start 12/27/16 at 09:00 Nicotine 1 patch 1 patch DAILY TRANSDERM ; Start 12/26/16 at 18:30 Levofloxacin/ Dextrose (Levaquin 500mg/ D5W 100 ml (Pmx)) 100 ml @ 100 mls/hr Q24H IVPB Last administered on 12/30/16 14:28; Admin Dose 100 MLS/HR; Start at 14:00 Guaifenesin/ Dextromethorphan (Robitussin Dm Liquid Cup) 5 ml Q4H PRN PO Cough Last administered on 12/27/16 15:46; Admin Dose 5 ML; Start 12/27/16 at 16:00 Timolol Maleate (Timoptic 0.5%) 1 drop BID BOTH EYES Last administered on 08:50; Admin Dose 1 DROP; Start 12/27/16 at 21:00 Latanoprost (Xalatan) 1 drop QHS BOTH EYES Last administered on 12/30/16 23:22 ; Admin Dose 1 DROP; Start 12/27/16 at 21:30 Cholecalciferol (Vitamin D) 2,000 unit DAILY PO Last administered on 12/31/16 08:49; Admin Dose 2,000 UNIT; Start 12/28/16 at 10:30 Enoxaparin Sodium 30 mg 30 mg DAILY SC Last administered on 12/31/16 09:06; Admin Dose 30 MG; Start 12/28/16 at 11:00 Aztreonam 50 ml @ 100 mls/hr Q12 IVPB Last administered on 12/31/16 10:20; Admin Dose 100 MLS/HR; Start 12/29/16 at 14:00 Vancomycin HCl (Vancocin) 100 ml @ 100 mls/hr Q12H IVPB Last administered on 08:48; Admin Dose 100 MLS/HR; Start 12/30/16 at 08:00 Morphine Sulfate (morphine) 2 mg Q4H PRN IV SEVERE PAIN LEVEL 7-10 Last administered on 12/30/16 17:03; Admin Dose 2 MG; Start 12/30/16 at 14:15 Miscellaneous Information VANCOMYCIN TROUGH AT 1900 ONCE ONCE XX ; Start 12/31/16 at 19:00; Stop 12/31/16 at 19:01 Magnesium Sulfate (Magnesium Sulfate 2 Gm/50 ml) 50 ml @ 25 mls/hr ONCE ONCE IVPB ; Start 12/31/16 at 14:30; Stop 12/31/16 at 16:29; Status CATHERINE ADAMS Dec 31, 2016 14:05
[2016-12-31 14:14] VITALS: BP 144/85; RESP 20
[2016-12-31] MEDS: LEVOFLOXACIN 500MG/D5W (PMX) 100 ML IVPB SCH (14:52)
[2016-12-31] MEDS: morphine 4 MG/ML VIAL IV PRN ×2 (14:52→20:51)
[2016-12-31] MEDS ORDERED: CASPOFUNGIN 70 MG in SOD CHLORIDE 0.9% 250 ML IVPB ONE (15:30)
--- NOTE | 2016-12-31 15:36 | CONS ---
Date/Time of Note Date/Time of Note DATE: 12/31/16 TIME: 15:14 Assessment/Plan Assessment/Plan Chief Complaint/Hosp Course ID PROGRESS NOTE CURRENT ABX: DAY #6 => Vanco IV + Levaquin + Azactam 24H SUMMARY * Lethargica, awakens, generalized debility/weakness/frail 76 yo FVSS, no fevers, no new issues, no complaints offered * Repeat LLEXT wound cx pending * Reena: 12/26/[id number] Rcvd: 12/27/16-1326 Source: LEFT LEG Sp Descrip: ROSETTA STAIN Final POLYMORPH. LEUKOCYTE 1+ GRAM NEGATIVE RODS 4+ WOUND CULTURE Final Organism 1 PSEUDOMONAS AERUGINOSA QUANTITY 2+ P.AERUG M.I.C. RX --------- --- AMIKACIN <=2 S AZTREONAM I CEFEPIME <=1 S CEFTAZIDIME 2 S CIPROFLOXACIN <=0.25 S GENTAMICIN <=1 S IMIPENEM >=16 R LEVOFLOXACIN 0.25 S TOBRAMYCIN <=1 S PIPERACILLIN/TAZOBACTAM <=4 S * MICRO 12/19/16 WOUND CULTURE Final Organism 1 PSEUDOMONAS AERUGINOSA QUANTITY 1+ P.AERUG M.I.C. RX --------- --- AMIKACIN <=2 S AZTREONAM S CEFEPIME 2 S CEFTAZIDIME 2 S CIPROFLOXACIN <=0.25 S GENTAMICIN <=1 S IMIPENEM >=16 R LEVOFLOXACIN 0.25 S TOBRAMYCIN <=1 S PIPERACILLIN/TAZOBACTAM 8 S 11/14/16 WOUND CULTURE Final Organism 1 PSEUDOMONAS AERUGINOSA QUANTITY 1+ Organism 2 CORYNEBACTER JEIKEIUM (GRP JK) QUANTITY 4+ Organism 3 ACINETOBACTER BAUMANNII QUANTITY 1+ Organism 4 ALPHA HEMOLYTIC STREP SPP QUANTITY SCANT GROWTH . VIRIDANS GROUP GENERAL: She is an elderly -Turkmen woman, VSS, NAD HEENT: Unremarkable NECK: Supple, full ROM CHEST: Equal chest rise bilaterally, without dyspnea on observation CV: Radial pulse RRR ABDOMEN: Soft, nontender, nondistended. LOWER EXTREMITIES: 2+ DP pulses/LLEXT DSG C/D/I. ID ASSESSMENT 76 yo F admit with: 1. SIRS w/low grade temps 99.+ range, lethargy/fatigue 2. 12/29/16 (+)Yeast UTI URINE CULTURE Preliminary Organism 1 YEAST COLONY COUNT >100,000 CFU/ml 3. Left lower extremity nonhealing wounds. Failed outpatient treatment. * Followed by podiatry and vascular surgery=> Per Dr. Rashid note plan is for eventual debrided once abx onboard 4. Peripheral Vascular Disease = Mixed venous insufficiency + arterial disease * Hx of bilateral lower extremity arterial bypass surgery early 2016 @ [facility] w/patent bypass grafts * Continued on antiplatelet therapy 4. Essential hypertension. 5. GERD 6. Dyslipidemia = on statins. 7. Tobaccoism -> 1-cig per day ? nicotine patch 8. ?Psych? => Noncompliance with medical tx despite severity of condition 9. Cachexia; frailty, general debility 2/2 chronic illness/chronic co-morbid conditions 10. Glaucoma -> Timolol eye gtts (-)MRSA Nares CURRENT ABX: DAY #6 => Vanco IV + Levaquin + Cefepime #1 + Cancidas #1 + Azactam => DC 12/31 ID RECOMMENDATIONS 1. Continue ABX IV per failed OP po ABX 2. PSAR is developing resistance to Azactam -> change to Cefepime + continue Levaquin + Vanco * "Double ABX" coverage for PSAR is warranted strategy attempt to avoid MDRO. 3. Cancidas for yeast UTI 4. Per Dr. Rashid note: Plan for debride once ABX onboard to clear the infection. * Pt with significant slough, eschar ? if ABX WHIRLPOOL is intermediary option for cleaning to malodorous wounds with significant microbial burden. * Will place order for PTX whirlpool evaluation . Problems: Consultation Date/Type/Reason Admit Date/Time Dec 26, 2016 at 14:43 Type of Consultation: ID Exam/Review of Systems Vital Signs Vitals Vital Signs Date Time Temp Pulse Resp B/P Pulse Ox O2 Delivery O2 Flow Rate FiO2 12/31/16 14:14 97.4 78 20 144/85 96 12/30/16 20:00 Room Air Intake and Output 12/30/16 12/30/16 12/31/16 15:00 23:00 07:00 Intake Total 150 ml 1450 ml 300 ml Output Total 1800 ml 1400 ml Balance 150 ml -350 ml -1100 ml Results Result Diagram: 12/30/16 0504 12/30/16 0504 Medications Medications Current Medications Ondansetron HCl (Zofran Inj) 4 mg Q6H PRN IV NAUSEA AND/OR VOMITING; Start at 18:00 Acetaminophen (Tylenol Tab) 650 mg Q6H PRN PO PAIN LEVEL 1-3 OR FEVER; Start at 18:00 Acetaminophen/ Hydrocodone Bitart ([place] (5/325)) 1 tab Q6H PRN PO MODERATE PAIN LEVEL 4-6 Last administered on 12/31/16 11:43; Admin Dose 1 TAB; Start at 18:00 Magnesium Hydroxide (Milk Of Mag) 30 ml DAILY PRN PO CONSTIPATION; Start at 18:00 Bisacodyl (Dulcolax) 5 mg DAILY PRN PO CONSTIPATION Last administered on 21:04; Admin Dose 5 MG; Start 12/26/16 at 18:00 Famotidine (Pepcid) 20 mg Q12 PO Last administered on 12/31/16 09:00; Admin Dose 20 MG; Start 12/26/16 at 21:00 Clopidogrel Bisulfate (plaVIX) 75 mg DAILY PO Last administered on 12/31/16 08 :49; Admin Dose 75 MG; Start 12/27/16 at 09:00 Hydrochlorothiazide (Hydrochlorothiazide) 12.5 mg DAILY PO Last administered on 12/31/16 08:49; Admin Dose 12.5 MG; Start 12/27/16 at 09:00 Amlodipine Besylate (Norvasc) 5 mg DAILY PO Last administered on 12/31/16 08: 49; Admin Dose 5 MG; Start 12/27/16 at 09:00 Atorvastatin Calcium (Lipitor) 10 mg QHS PO Last administered on 12/30/16 21: 04; Admin Dose 10 MG; Start 12/26/16 at 21:00 Hydralazine HCl (Apresoline) 10 mg Q6H PRN IV SBP>160; Start 12/26/16 at 18:00 Losartan Potassium (Cozaar) 100 mg DAILY PO Last administered on 12/31/16 08: 49; Admin Dose 100 MG; Start 12/27/16 at 09:00 Nicotine 1 patch 1 patch DAILY TRANSDERM ; Start 12/26/16 at 18:30 Levofloxacin/ Dextrose (Levaquin 500mg/ D5W 100 ml (Pmx)) 100 ml @ 100 mls/hr Q24H IVPB Last administered on 12/31/16 14:52; Admin Dose 100 MLS/HR; Start at 14:00 Guaifenesin/ Dextromethorphan (Robitussin Dm Liquid Cup) 5 ml Q4H PRN PO Cough Last administered on 12/27/16 15:46; Admin Dose 5 ML; Start 12/27/16 at 16:00 Timolol Maleate (Timoptic 0.5%) 1 drop BID BOTH EYES Last administered on 08:50; Admin Dose 1 DROP; Start 12/27/16 at 21:00 Latanoprost (Xalatan) 1 drop QHS BOTH EYES Last administered on 12/30/16 23:22 ; Admin Dose 1 DROP; Start 12/27/16 at 21:30 Cholecalciferol (Vitamin D) 2,000 unit DAILY PO Last administered on 12/31/16 08:49; Admin Dose 2,000 UNIT; Start 12/28/16 at 10:30 Enoxaparin Sodium 30 mg 30 mg DAILY SC Last administered on 12/31/16 09:06; Admin Dose 30 MG; Start 12/28/16 at 11:00 Aztreonam 50 ml @ 100 mls/hr Q12 IVPB Last administered on 12/31/16 10:20; Admin Dose 100 MLS/HR; Start 12/29/16 at 14:00 Vancomycin HCl (Vancocin) 100 ml @ 100 mls/hr Q12H IVPB Last administered on 08:48; Admin Dose 100 MLS/HR; Start 12/30/16 at 08:00 Morphine Sulfate (morphine) 2 mg Q4H PRN IV SEVERE PAIN LEVEL 7-10 Last administered on 12/31/16 14:52; Admin Dose 2 MG; Start 12/30/16 at 14:15 Miscellaneous Information VANCOMYCIN TROUGH AT 1900 ONCE ONCE XX ; Start 12/31/16 at 19:00; Stop 12/31/16 at 19:01 Magnesium Sulfate (Magnesium Sulfate 2 Gm/50 ml) 50 ml @ 25 mls/hr ONCE ONCE IVPB ; Start 12/31/16 at 16:00; Stop 12/31/16 at 17:59 NIELS KNAPP FERN GATHERER Dec 31, 2016 15:25
[2016-12-31] MEDS ORDERED: MAGNESIUM SULFATE 2 GM/50 ML 50 ML IVPB ONE (16:00)
[2016-12-31 20:00] VITALS: BP 127/58; PULSE 75; RESP 20
[2016-12-31] MEDS: ATORVASTATIN 10 MG TAB PO SCH (20:50)
[2016-12-31] MEDS: LATANOPROST 0.005% 2.5 ML OPH BOTH EYES SCH (21:29)
[2016-12-31] MEDS: CEFEPIME 1GM/50 ML (PMX) 50 ML IVPB SCH (22:16)
[2017-01-01 02:33] VITALS: BP 137/55; PULSE 73; RESP 20
[2017-01-01 07:44] VITALS: BP 129/66; RESP 18
[2017-01-01] MEDS: NICOTINE (7 MG/24 HR) PATCH TRANSDERM SCH (08:33)
[2017-01-01] MEDS: VANCOMYCIN 500MG/NS (PMX) 100 ML IVPB SCH ×2 (08:39→20:22)
[2017-01-01] MEDS: CHOLECALCIFEROL 2,000 UNIT CAP PO SCH (08:43)
[2017-01-01] MEDS: FAMOTIDINE 20 MG TAB PO SCH ×2 (08:43→20:22)
[2017-01-01] MEDS: AMLODIPINE 5 MG TAB PO SCH (08:44)
[2017-01-01] MEDS: CLOPIDOGREL 75 MG TAB PO SCH (08:44)
[2017-01-01] MEDS: LOSARTAN 50 MG TAB PO SCH (08:45)
[2017-01-01] MEDS: TIMOLOL 0.5% 5 ML OPH BOTH EYES SCH ×2 (08:46→20:22)
[2017-01-01] MEDS: HYDROCHLOROTHIAZIDE 12.5 MG CAP PO SCH (08:46)
[2017-01-01] MEDS: ENOXAPARIN 30 MG/0.3 ML SYG SC SCH (08:51)
[2017-01-01] MEDS: HYDROCODONE/APAP (5/325) TAB PO PRN ×2 (09:14→17:59)
[2017-01-01] MEDS: LEVOFLOXACIN 500MG/D5W (PMX) 100 ML IVPB SCH (13:52)
[2017-01-01 14:13] VITALS: BP 124/56; RESP 20
[2017-01-01] MEDS: morphine 4 MG/ML VIAL IV PRN (14:30)
--- NOTE | 2017-01-01 14:49 | PN ---
Date/Time of Note Date/Time of Note DATE: 01/01/17 TIME: 14:45 Assessment/Plan VTE Prophylaxis VTE Prophylaxis Intervention: LMWH Lines/Catheters IV Catheter Type (from Nrs): Saline Lock Assessment/Plan Chief Complaint/Hosp Course Assessment and plan 1. Left lower extremity nonhealing wounds. Patient did fail outpatient treatment. On antibiotics for now. wound care nurse following. Will continue with wound care . 2. Essential hypertension. Appears stable at present. Will resume antihypertensives and adjust needed 3. History of dyslipidemia. Patient resumed on statin medication 4. PVD. On heparin therapy. Vascular surgeon following. Plan for surgical intervention once wound infection better 5. Normocytic normochromic anemia likely of chronic disease. H&H remained stable at present. Will monitor for now. Disposition plan: continue with wound care and abx. Await podiatry recs. continue inpatient monitoring Discussed plan of care with Dr. Neal Problems: Subjective 24 Hr Interval Summary Free Text/Dictation Still reports some pain on bilateral lower extremities Exam/Review of Systems Vital Signs Vitals Vital Signs Date Time Temp Pulse Resp B/P Pulse Ox O2 Delivery O2 Flow Rate FiO2 01/01/17 14:13 97.1 77 20 124/56 97 01/01/17 02:33 Room Air Intake and Output 12/31/16 12/31/16 01/01/17 14:59 22:59 06:59 Intake Total 150 ml 1630 ml 240 ml Output Total 800 ml Balance 150 ml 830 ml 240 ml Exam Constitutional: alert Head: normocephalic Neck: supple Respiratory: clear to auscultation, normal air movement Cardiovascular: regular rate and rhythm Gastrointestinal: non-tender, soft Musculoskeletal: No nl gait and stance Neurological: nl mental status, nl speech Skin: other (LLE wound ) Results Result Diagram: 12/30/16 0504 12/30/16 0504 Results 24 hrs Laboratory Tests Test 12/31/16 19:07 Vancomycin Level Trough 10.1 Medications Medications Current Medications Ondansetron HCl (Zofran Inj) 4 mg Q6H PRN IV NAUSEA AND/OR VOMITING; Start at 18:00 Acetaminophen (Tylenol Tab) 650 mg Q6H PRN PO PAIN LEVEL 1-3 OR FEVER; Start at 18:00 Acetaminophen/ Hydrocodone Bitart ([place] (5/325)) 1 tab Q6H PRN PO MODERATE PAIN LEVEL 4-6 Last administered on 01/01/17 09:14; Admin Dose 1 TAB; Start at 18:00 Magnesium Hydroxide (Milk Of Mag) 30 ml DAILY PRN PO CONSTIPATION; Start at 18:00 Bisacodyl (Dulcolax) 5 mg DAILY PRN PO CONSTIPATION Last administered on 21:04; Admin Dose 5 MG; Start 12/26/16 at 18:00 Famotidine (Pepcid) 20 mg Q12 PO Last administered on 01/01/17 08:43; Admin Dose 20 MG; Start 12/26/16 at 21:00 Clopidogrel Bisulfate (plaVIX) 75 mg DAILY PO Last administered on 01/01/17 08: 44; Admin Dose 75 MG; Start 12/27/16 at 09:00 Hydrochlorothiazide (Hydrochlorothiazide) 12.5 mg DAILY PO Last administered on 01/01/17 08:46; Admin Dose 12.5 MG; Start 12/27/16 at 09:00 Amlodipine Besylate (Norvasc) 5 mg DAILY PO Last administered on 01/01/17 08:44 ; Admin Dose 5 MG; Start 12/27/16 at 09:00 Atorvastatin Calcium (Lipitor) 10 mg QHS PO Last administered on 12/31/16 20: 50; Admin Dose 10 MG; Start 12/26/16 at 21:00 Hydralazine HCl (Apresoline) 10 mg Q6H PRN IV SBP>160; Start 12/26/16 at 18:00 Losartan Potassium (Cozaar) 100 mg DAILY PO Last administered on 01/01/17 08:45 ; Admin Dose 100 MG; Start 12/27/16 at 09:00 Nicotine 1 patch 1 patch DAILY TRANSDERM ; Start 12/26/16 at 18:30 Levofloxacin/ Dextrose (Levaquin 500mg/ D5W 100 ml (Pmx)) 100 ml @ 100 mls/hr Q24H IVPB Last administered on 01/01/17 13:52; Admin Dose 100 MLS/HR; Start at 14:00 Guaifenesin/ Dextromethorphan (Robitussin Dm Liquid Cup) 5 ml Q4H PRN PO Cough Last administered on 12/27/16 15:46; Admin Dose 5 ML; Start 12/27/16 at 16:00 Timolol Maleate (Timoptic 0.5%) 1 drop BID BOTH EYES Last administered on 08:46; Admin Dose 1 DROP; Start 12/27/16 at 21:00 Latanoprost (Xalatan) 1 drop QHS BOTH EYES Last administered on 12/31/16 21:29 ; Admin Dose 1 DROP; Start 12/27/16 at 21:30 Cholecalciferol (Vitamin D) 2,000 unit DAILY PO Last administered on 01/01/17 08:43; Admin Dose 2,000 UNIT; Start 12/28/16 at 10:30 Enoxaparin Sodium 30 mg 30 mg DAILY SC Last administered on 01/01/17 08:51; Admin Dose 30 MG; Start 12/28/16 at 11:00 Vancomycin HCl (Vancocin) 100 ml @ 100 mls/hr Q12H IVPB Last administered on 08:39; Admin Dose 100 MLS/HR; Start 12/30/16 at 08:00 Morphine Sulfate 2 mg 2 mg Q4H PRN IV SEVERE PAIN LEVEL 7-10 Last administered on 01/01/17 14:30; Admin Dose 2 MG; Start 12/30/16 at 14:15 Cefepime HCl 50 ml @ 100 mls/hr Q24H IVPB Last administered on 12/31/16 22:16 ; Admin Dose 100 MLS/HR; Start 12/31/16 at 21:00 Caspofungin/ Sodium Chloride (Cancidas/NS) 250 ml @ 250 mls/hr Q24H IVPB ; Start 01/01/17 at 15:30 CATHERINE CORNELIUS Jan 01, 2017 14:49
[2017-01-01] MEDS: CASPOFUNGIN 50 MG in SOD CHLORIDE 0.9% 250 ML IVPB SCH (15:43)
[2017-01-01] MEDS: COLLAGENASE 30 GM TUBE TOP SCH (16:30)
--- NOTE | 2017-01-01 18:12 | CONS ---
Date/Time of Note Date/Time of Note DATE: 01/01/17 TIME: 18:08 Assessment/Plan Assessment/Plan Chief Complaint/Hosp Course ID PROGRESS NOTE CURRENT ABX: DAY #7 => Vanco IV + Levaquin + Azactam 24H SUMMARY * Clinically stable; appreciate wound nurse telephone contact today -- in order to proceed to Whirlpool debride will need BLEXT Venous study to r/o DVT; I believe this was done recently prior facility. Additionally, PTx/wound care would need order for antiseptic whirlpool agent and Silvadene topical for post whirlpool. * Lethargic, awakens, generalized debility/weakness/frail 76 yo FVSS, no fevers , no new issues, no complaints offered * Repeat LLEXT wound cx * Reena: 12/26/16-0 Rcvd: 12/27/16-1326 Source: LEFT LEG Sp Descrip: ROSETTA STAIN Final POLYMORPH. LEUKOCYTE 1+ GRAM NEGATIVE RODS 4+ WOUND CULTURE Final Organism 1 PSEUDOMONAS AERUGINOSA QUANTITY 2+ P.AERUG M.I.C. RX --------- --- AMIKACIN <=2 S AZTREONAM I CEFEPIME <=1 S CEFTAZIDIME 2 S CIPROFLOXACIN <=0.25 S GENTAMICIN <=1 S IMIPENEM >=16 R LEVOFLOXACIN 0.25 S TOBRAMYCIN <=1 S PIPERACILLIN/TAZOBACTAM <=4 S * MICRO 12/19/16 WOUND CULTURE Final Organism 1 PSEUDOMONAS AERUGINOSA QUANTITY 1+ P.AERUG M.I.C. RX --------- --- AMIKACIN <=2 S AZTREONAM S CEFEPIME 2 S CEFTAZIDIME 2 S CIPROFLOXACIN <=0.25 S GENTAMICIN <=1 S IMIPENEM >=16 R LEVOFLOXACIN 0.25 S TOBRAMYCIN <=1 S PIPERACILLIN/TAZOBACTAM 8 S 11/14/16 WOUND CULTURE Final Organism 1 PSEUDOMONAS AERUGINOSA QUANTITY 1+ Organism 2 CORYNEBACTER JEIKEIUM (GRP JK) QUANTITY 4+ Organism 3 ACINETOBACTER BAUMANNII QUANTITY 1+ Organism 4 ALPHA HEMOLYTIC STREP SPP QUANTITY SCANT GROWTH . VIRIDANS GROUP GENERAL: She is an elderly -Burmese woman, VSS, NAD HEENT: Unremarkable NECK: Supple, full ROM CHEST: Equal chest rise bilaterally, without dyspnea on observation CV: Radial pulse RRR ABDOMEN: Soft, nontender, nondistended. LOWER EXTREMITIES: 2+ DP pulses/LLEXT DSG C/D/I. ID ASSESSMENT 76 yo F admit with: 1. SIRS w/low grade temps 99.+ range, lethargy/fatigue 2. 12/29/16 (+)Yeast UTI URINE CULTURE Preliminary Organism 1 YEAST COLONY COUNT >100,000 CFU/ml 3. Left lower extremity nonhealing wounds. Failed outpatient treatment. * Followed by podiatry and vascular surgery=> Per Dr. Rashid note plan is for eventual debrided once abx onboard 4. Peripheral Vascular Disease = Mixed venous insufficiency + arterial disease * Hx of bilateral lower extremity arterial bypass surgery early 2015 @ [facility] w/patent bypass grafts * Continued on antiplatelet therapy 4. Essential hypertension. 5. GERD 6. Dyslipidemia = on statins. 7. Tobaccoism -> 1-cig per day ? nicotine patch 8. ?Psych? => Noncompliance with medical tx despite severity of condition 9. Cachexia; frailty, general debility 2/2 chronic illness/chronic co-morbid conditions 10. Glaucoma -> Timolol eye gtts (-)MRSA Nares CURRENT ABX: DAY # 7=> Vanco IV + Levaquin + Cefepime #1 + Cancidas #1 + Azactam => DC 12/31 ID RECOMMENDATIONS 1. Continue ABX IV per failed OP po ABX 2. PSAR is developing resistance to Azactam -> change to Cefepime + continue Levaquin + Vanco * "Double ABX" coverage for PSAR is warranted strategy attempt to avoid MDRO. 3. Cancidas for yeast UTI 4. Per Dr. Rashid note: Plan for debride once ABX onboard to clear the infection. 5. WHIRLPOOL DEBRIDE ON HOLD FOR NOW. * Pt with significant slough, eschar ? if ABX WHIRLPOOL is intermediary option for cleaning to malodorous wounds with significant microbial burden. * Appreciate wound nurse telephone contact today -- in order to proceed to Whirlpool debride will need BLEXT Venous study to r/o DVT; I believe this was done recently prior facility. Additionally, PTx/wound care would need order for antiseptic whirlpool agent and Silvadene topical for post whirlpool.At this time will see how she does on current wound care plan with IV ABX and APC follow up. . . Problems: Consultation Date/Type/Reason Admit Date/Time Dec 26, 2016 at 14:43 Type of Consultation: ID Exam/Review of Systems Vital Signs Vitals Vital Signs Date Time Temp Pulse Resp B/P Pulse Ox O2 Delivery O2 Flow Rate FiO2 01/01/17 14:13 97.1 77 20 124/56 97 01/01/17 02:33 Room Air Intake and Output 12/31/16 12/31/16 01/01/17 15:00 23:00 07:00 Intake Total 150 ml 1630 ml 240 ml Output Total 800 ml Balance 150 ml 830 ml 240 ml Results Result Diagram: 12/30/16 0504 12/30/16 0504 Results 24 hrs Laboratory Tests Test 12/31/16 19:07 Vancomycin Level Trough 10.1 Medications Medications Current Medications Ondansetron HCl (Zofran Inj) 4 mg Q6H PRN IV NAUSEA AND/OR VOMITING; Start at 18:00 Acetaminophen (Tylenol Tab) 650 mg Q6H PRN PO PAIN LEVEL 1-3 OR FEVER; Start at 18:00 Acetaminophen/ Hydrocodone Bitart ([place] (5/325)) 1 tab Q6H PRN PO MODERATE PAIN LEVEL 4-6 Last administered on 01/01/17t 17:59; Admin Dose 1 TAB; Start at 18:00 Magnesium Hydroxide (Milk Of Mag) 30 ml DAILY PRN PO CONSTIPATION; Start at 18:00 Bisacodyl (Dulcolax) 5 mg DAILY PRN PO CONSTIPATION Last administered on 21:04; Admin Dose 5 MG; Start 12/26/16 at 18:00 Famotidine (Pepcid) 20 mg Q12 PO Last administered on 01/01/17 08:43; Admin Dose 20 MG; Start 12/26/16 at 21:00 Clopidogrel Bisulfate (plaVIX) 75 mg DAILY PO Last administered on 01/01/17 08: 44; Admin Dose 75 MG; Start 12/27/16 at 09:00 Hydrochlorothiazide (Hydrochlorothiazide) 12.5 mg DAILY PO Last administered on 01/01/17 08:46; Admin Dose 12.5 MG; Start 12/27/16 at 09:00 Amlodipine Besylate (Norvasc) 5 mg DAILY PO Last administered on 01/01/17 08:44 ; Admin Dose 5 MG; Start 12/27/16 at 09:00 Atorvastatin Calcium (Lipitor) 10 mg QHS PO Last administered on 12/31/16 20: 50; Admin Dose 10 MG; Start 12/26/16 at 21:00 Hydralazine HCl (Apresoline) 10 mg Q6H PRN IV SBP>160; Start 12/26/16 at 18:00 Losartan Potassium (Cozaar) 100 mg DAILY PO Last administered on 01/01/17 08:45 ; Admin Dose 100 MG; Start 12/27/16 at 09:00 Nicotine 1 patch 1 patch DAILY TRANSDERM ; Start 12/26/16 at 18:30 Levofloxacin/ Dextrose (Levaquin 500mg/ D5W 100 ml (Pmx)) 100 ml @ 100 mls/hr Q24H IVPB Last administered on 01/01/17 13:52; Admin Dose 100 MLS/HR; Start at 14:00 Guaifenesin/ Dextromethorphan (Robitussin Dm Liquid Cup) 5 ml Q4H PRN PO Cough Last administered on 12/27/16 15:46; Admin Dose 5 ML; Start 12/27/16 at 16:00 Timolol Maleate (Timoptic 0.5%) 1 drop BID BOTH EYES Last administered on 08:46; Admin Dose 1 DROP; Start 12/27/16 at 21:00 Latanoprost (Xalatan) 1 drop QHS BOTH EYES Last administered on 12/31/16 21:29 ; Admin Dose 1 DROP; Start 12/27/16 at 21:30 Cholecalciferol (Vitamin D) 2,000 unit DAILY PO Last administered on 01/01/17 08:43; Admin Dose 2,000 UNIT; Start 12/28/16 at 10:30 Enoxaparin Sodium 30 mg 30 mg DAILY SC Last administered on 01/01/17 08:51; Admin Dose 30 MG; Start 12/28/16 at 11:00 Vancomycin HCl (Vancocin) 100 ml @ 100 mls/hr Q12H IVPB Last administered on 08:39; Admin Dose 100 MLS/HR; Start 12/30/16 at 08:00 Morphine Sulfate 2 mg 2 mg Q4H PRN IV SEVERE PAIN LEVEL 7-10 Last administered on 01/01/17 14:30; Admin Dose 2 MG; Start 12/30/16 at 14:15 Cefepime HCl 50 ml @ 100 mls/hr Q24H IVPB Last administered on 12/31/16 22:16 ; Admin Dose 100 MLS/HR; Start 12/31/16 at 21:00 Caspofungin/ Sodium Chloride (Cancidas/NS) 250 ml @ 250 mls/hr Q24H IVPB Last administered on 01/01/17 15:43; Admin Dose 250 MLS/HR; Start 01/01/17 at 15:30 Collagenase (Santyl) 1 applic DAILY TOP ; Start 01/01/17 at 16:30 NIELS KNAPP NP Jan 01, 2017 18:12
[2017-01-01 19:38] VITALS: BP 115/55; RESP 18
[2017-01-01] MEDS: ATORVASTATIN 10 MG TAB PO SCH (20:22)
[2017-01-01] MEDS: CEFEPIME 1GM/50 ML (PMX) 50 ML IVPB SCH (22:11)
[2017-01-01] MEDS: LATANOPROST 0.005% 2.5 ML OPH BOTH EYES SCH (22:11)
[2017-01-02] MEDS: HYDROCODONE/APAP (5/325) TAB PO PRN ×2 (00:40→19:52)
[2017-01-02 02:54] VITALS: BP 121/58; RESP 19
[2017-01-02] MEDS: morphine 4 MG/ML VIAL IV PRN (05:43)
[2017-01-02] MEDS: COLLAGENASE 30 GM TUBE TOP SCH ×2 (06:24→08:42)
[2017-01-02 06:50] LABS: CREATININE 0.81 mg/dl (0.44-1.00)
[2017-01-02] MEDS: NICOTINE (7 MG/24 HR) PATCH TRANSDERM SCH (08:28)
[2017-01-02 08:30] VITALS: BP 102/57; PULSE 77; RESP 18
[2017-01-02] MEDS: TIMOLOL 0.5% 5 ML OPH BOTH EYES SCH ×2 (08:39→21:06)
[2017-01-02] MEDS: VANCOMYCIN 500MG/NS (PMX) 100 ML IVPB SCH ×2 (08:39→19:52)
[2017-01-02] MEDS: CLOPIDOGREL 75 MG TAB PO SCH (08:40)
[2017-01-02] MEDS: CHOLECALCIFEROL 2,000 UNIT CAP PO SCH (08:41)
[2017-01-02] MEDS: FAMOTIDINE 20 MG TAB PO SCH ×2 (08:41→21:06)
[2017-01-02] MEDS: LOSARTAN 50 MG TAB PO SCH (08:44)
[2017-01-02] MEDS: HYDROCHLOROTHIAZIDE 12.5 MG CAP PO SCH (08:45)
[2017-01-02] MEDS: AMLODIPINE 5 MG TAB PO SCH (08:45)
[2017-01-02] MEDS: ENOXAPARIN 30 MG/0.3 ML SYG SC SCH (08:57)
--- NOTE | 2017-01-02 09:51 | CONS ---
Date/Time of Note Date/Time of Note DATE: 01/02/17 TIME: 09:46 Consultation Date/Type/Reason Admit Date/Time Dec 26, 2016 at 14:43 Initial Consult Date 2016 This is a follow-up consult for patient Sneha Barbosa the ulcerations lateral and medial aspect of the left leg appear to be healing. Santyl Adaptic and alginate appear to have debrided the eschar circumferentially as well as medially and laterally. There appears to be no undermining today and there is excellent granulation tissue noted at the base. We will continue with this application on a daily basis and will follow up with her in the wound care clinic after discharge from infectious disease department. There appears to be no undermining today and there is excellent granulation tissue noted at the base. Type of Consultation: ID Exam/Review of Systems Vital Signs Vitals Vital Signs Date Time Temp Pulse Resp B/P Pulse Ox O2 Delivery O2 Flow Rate FiO2 01/02/17 08:30 98.5 77 18 102/57 95 Room Air Intake and Output 01/01/17 01/01/17 01/02/17 15:00 23:00 07:00 Intake Total 200 ml 1840 ml Output Total 1300 ml Balance 200 ml 540 ml Results Result Diagram: 12/30/16 0504 01/02/17 0517 Results 24 hrs Laboratory Tests Test 01/02/17 05:17 Blood Urea Nitrogen 13 Creatinine 0.81 Medications Medications Current Medications Ondansetron HCl (Zofran Inj) 4 mg Q6H PRN IV NAUSEA AND/OR VOMITING; Start at 18:00 Acetaminophen (Tylenol Tab) 650 mg Q6H PRN PO PAIN LEVEL 1-3 OR FEVER; Start at 18:00 Acetaminophen/ Hydrocodone Bitart ([place] (5/325)) 1 tab Q6H PRN PO MODERATE PAIN LEVEL 4-6 Last administered on 01/02/17 00:40; Admin Dose 1 TAB; Start at 18:00 Magnesium Hydroxide (Milk Of Mag) 30 ml DAILY PRN PO CONSTIPATION; Start at 18:00 Bisacodyl (Dulcolax) 5 mg DAILY PRN PO CONSTIPATION Last administered on 21:04; Admin Dose 5 MG; Start 12/26/16 at 18:00 Famotidine (Pepcid) 20 mg Q12 PO Last administered on 01/02/17 08:41; Admin Dose 20 MG; Start 12/26/16 at 21:00 Clopidogrel Bisulfate (plaVIX) 75 mg DAILY PO Last administered on 01/02/17 08: 40; Admin Dose 75 MG; Start 12/27/16 at 09:00 Hydrochlorothiazide (Hydrochlorothiazide) 12.5 mg DAILY PO Last administered on 01/01/17 08:46; Admin Dose 12.5 MG; Start 12/27/16 at 09:00 Amlodipine Besylate (Norvasc) 5 mg DAILY PO Last administered on 01/01/17 08:44 ; Admin Dose 5 MG; Start 12/27/16 at 09:00 Atorvastatin Calcium (Lipitor) 10 mg QHS PO Last administered on 01/01/17 20:22 ; Admin Dose 10 MG; Start 12/26/16 at 21:00 Hydralazine HCl (Apresoline) 10 mg Q6H PRN IV SBP>160; Start 12/26/16 at 18:00 Losartan Potassium (Cozaar) 100 mg DAILY PO Last administered on 01/01/17 08:45 ; Admin Dose 100 MG; Start 12/27/16 at 09:00 Nicotine 1 patch 1 patch DAILY TRANSDERM ; Start 12/26/16 at 18:30 Levofloxacin/ Dextrose (Levaquin 500mg/ D5W 100 ml (Pmx)) 100 ml @ 100 mls/hr Q24H IVPB Last administered on 01/01/17 13:52; Admin Dose 100 MLS/HR; Start at 14:00 Guaifenesin/ Dextromethorphan (Robitussin Dm Liquid Cup) 5 ml Q4H PRN PO Cough Last administered on 12/27/16 15:46; Admin Dose 5 ML; Start 12/27/16 at 16:00 Timolol Maleate (Timoptic 0.5%) 1 drop BID BOTH EYES Last administered on 08:39; Admin Dose 1 DROP; Start 12/27/16 at 21:00 Latanoprost (Xalatan) 1 drop QHS BOTH EYES Last administered on 01/01/17 22:11 ; Admin Dose 1 DROP; Start 12/27/16 at 21:30 Cholecalciferol (Vitamin D) 2,000 unit DAILY PO Last administered on 01/02/17 08:41; Admin Dose 2,000 UNIT; Start 12/28/16 at 10:30 Enoxaparin Sodium 30 mg 30 mg DAILY SC Last administered on 01/02/17 08:57; Admin Dose 30 MG; Start 12/28/16 at 11:00 Vancomycin HCl (Vancocin) 100 ml @ 100 mls/hr Q12H IVPB Last administered on 08:39; Admin Dose 100 MLS/HR; Start 12/30/16 at 08:00 Morphine Sulfate 2 mg 2 mg Q4H PRN IV SEVERE PAIN LEVEL 7-10 Last administered on 01/02/17 05:43; Admin Dose 2 MG; Start 12/30/16 at 14:15 Cefepime HCl 50 ml @ 100 mls/hr Q24H IVPB Last administered on 01/01/17 22:11 ; Admin Dose 100 MLS/HR; Start 12/31/16 at 21:00 Caspofungin/ Sodium Chloride (Cancidas/NS) 250 ml @ 250 mls/hr Q24H IVPB Last administered on 01/01/17 15:43; Admin Dose 250 MLS/HR; Start 01/01/17 at 15:30 Collagenase (Santyl) 1 applic DAILY TOP Last administered on 01/02/17 08:42; Admin Dose 1 APPLIC; Start 01/01/17 at 16:30 JULIO C MONTENEGRO DPM Jan 02, 2017 09:51
--- NOTE | 2017-01-02 11:00 | PN ---
Date/Time of Note Date/Time of Note DATE: 01/02/17 TIME: 10:54 Assessment/Plan VTE Prophylaxis VTE Prophylaxis Intervention: LMWH Lines/Catheters [facility] [place] Assessment/Plan Chief Complaint/Hosp Course Assessment and plan 1. Left lower extremity nonhealing wounds. Patient did fail outpatient treatment. On antibiotics for now. wound care nurse following. Will continue with wound care . 2. Essential hypertension. Appears stable at present. Will resume antihypertensives and adjust needed 3. History of dyslipidemia. Patient resumed on statin medication 4. PVD. On heparin therapy. Vascular surgeon following. Plan for surgical intervention once wound infection better. continue with podiatry recs 5. Normocytic normochromic anemia likely of chronic disease. H&H remained stable at present. Will monitor for now. Disposition plan: continue with wound care and abx. plan for outpatient follow up with networking engineer. d/c when cleared by consultants and medically stable. will get physical therapy Discussed plan of care with Dr. Neal Problems: Subjective 24 Hr Interval Summary Free Text/Dictation Still reports having left lower extremity pain but less today. Exam/Review of Systems Vital Signs Vitals Vital Signs Date Time Temp Pulse Resp B/P Pulse Ox O2 Delivery O2 Flow Rate FiO2 01/02/17 08:30 98.5 77 18 102/57 95 Room Air Intake and Output 01/01/17 01/01/17 01/02/17 14:59 22:59 06:59 Intake Total 200 ml 1840 ml Output Total 1300 ml Balance 200 ml 540 ml Exam Constitutional: alert, oriented Psych: nl mood/affect Neck: No jvd Respiratory: clear to auscultation Cardiovascular: nl pulses, regular rate and rhythm Gastrointestinal: soft Musculoskeletal: No nl gait and stance Neurological: SUSTAINABILITY MANAGER II-XII intact, nl mental status, nl speech Skin: other (Left lower extremity wound with dressing in place) Results Result Diagram: 12/30/16 0504 01/02/17 0517 Results 24 hrs Laboratory Tests Test 01/02/17 05:17 Blood Urea Nitrogen 13 Creatinine 0.81 Medications Medications Current Medications Ondansetron HCl (Zofran Inj) 4 mg Q6H PRN IV NAUSEA AND/OR VOMITING; Start at 18:00 Acetaminophen (Tylenol Tab) 650 mg Q6H PRN PO PAIN LEVEL 1-3 OR FEVER; Start at 18:00 Acetaminophen/ Hydrocodone Bitart ([place] (5/325)) 1 tab Q6H PRN PO MODERATE PAIN LEVEL 4-6 Last administered on 01/02/17 00:40; Admin Dose 1 TAB; Start at 18:00 Magnesium Hydroxide (Milk Of Mag) 30 ml DAILY PRN PO CONSTIPATION; Start at 18:00 Bisacodyl (Dulcolax) 5 mg DAILY PRN PO CONSTIPATION Last administered on 21:04; Admin Dose 5 MG; Start 12/26/16 at 18:00 Famotidine (Pepcid) 20 mg Q12 PO Last administered on 01/02/17 08:41; Admin Dose 20 MG; Start 12/26/16 at 21:00 Clopidogrel Bisulfate (plaVIX) 75 mg DAILY PO Last administered on 01/02/17 08: 40; Admin Dose 75 MG; Start 12/27/16 at 09:00 Hydrochlorothiazide (Hydrochlorothiazide) 12.5 mg DAILY PO Last administered on 01/01/17 08:46; Admin Dose 12.5 MG; Start 12/27/16 at 09:00 Amlodipine Besylate (Norvasc) 5 mg DAILY PO Last administered on 01/01/17 08:44 ; Admin Dose 5 MG; Start 12/27/16 at 09:00 Atorvastatin Calcium (Lipitor) 10 mg QHS PO Last administered on 01/01/17 20:22 ; Admin Dose 10 MG; Start 12/26/16 at 21:00 Hydralazine HCl (Apresoline) 10 mg Q6H PRN IV SBP>160; Start 12/26/16 at 18:00 Losartan Potassium (Cozaar) 100 mg DAILY PO Last administered on 01/01/17 08:45 ; Admin Dose 100 MG; Start 12/27/16 at 09:00 Nicotine 1 patch 1 patch DAILY TRANSDERM ; Start 12/26/16 at 18:30 Levofloxacin/ Dextrose (Levaquin 500mg/ D5W 100 ml (Pmx)) 100 ml @ 100 mls/hr Q24H IVPB Last administered on 01/01/17 13:52; Admin Dose 100 MLS/HR; Start at 14:00 Guaifenesin/ Dextromethorphan (Robitussin Dm Liquid Cup) 5 ml Q4H PRN PO Cough Last administered on 12/27/16 15:46; Admin Dose 5 ML; Start 12/27/16 at 16:00 Timolol Maleate (Timoptic 0.5%) 1 drop BID BOTH EYES Last administered on 08:39; Admin Dose 1 DROP; Start 12/27/16 at 21:00 Latanoprost (Xalatan) 1 drop QHS BOTH EYES Last administered on 01/01/17 22:11 ; Admin Dose 1 DROP; Start 12/27/16 at 21:30 Cholecalciferol (Vitamin D) 2,000 unit DAILY PO Last administered on 01/02/17 08:41; Admin Dose 2,000 UNIT; Start 12/28/16 at 10:30 Enoxaparin Sodium 30 mg 30 mg DAILY SC Last administered on 01/02/17 08:57; Admin Dose 30 MG; Start 12/28/16 at 11:00 Vancomycin HCl (Vancocin) 100 ml @ 100 mls/hr Q12H IVPB Last administered on 08:39; Admin Dose 100 MLS/HR; Start 12/30/16 at 08:00 Morphine Sulfate 2 mg 2 mg Q4H PRN IV SEVERE PAIN LEVEL 7-10 Last administered on 01/02/17 05:43; Admin Dose 2 MG; Start 12/30/16 at 14:15 Cefepime HCl 50 ml @ 100 mls/hr Q24H IVPB Last administered on 01/01/17 22:11 ; Admin Dose 100 MLS/HR; Start 12/31/16 at 21:00 Caspofungin/ Sodium Chloride (Cancidas/NS) 250 ml @ 250 mls/hr Q24H IVPB Last administered on 01/01/17 15:43; Admin Dose 250 MLS/HR; Start 01/01/17 at 15:30 Collagenase (Santyl) 1 applic DAILY TOP Last administered on 01/02/17 08:42; Admin Dose 1 APPLIC; Start 01/01/17 at 16:30 CATHERINE CORNELIUS Jan 02, 2017 11:00
--- NOTE | 2017-01-02 13:04 | CONS ---
Date/Time of Note Date/Time of Note DATE: 01/02/17 TIME: 13:00 Assessment/Plan Assessment/Plan Chief Complaint/Hosp Course ID PROGRESS NOTE CURRENT ABX: DAY #8 => Vanco IV + Levaquin + Cefepime #1 + Cancidas #1 s/p Azactam -> DC'd 01/01 24H SUMMARY * Clinically stable; appreciate wound nurse telephone contact today -- in order to proceed to Whirlpool debride will need BLEXT Venous study to r/o DVT; I believe this was done recently prior facility. Additionally, PTx/wound care would need order for antiseptic whirlpool agent and Silvadene topical for post whirlpool. * Lethargic, awakens, generalized debility/weakness/frail 76 yo FVSS, no fevers , no new issues, no complaints offered * MICRO BELOW: Wounds (+): CoNS, [place] "JK", PSAR, RLEXT Wound WOUND CULTURE Final Organism 1 COAGULASE NEGATIVE STAPH QUANTITY SCANT GROWTH Organism 2 CORYNEBACTER JEIKEIUM (GRP JK) QUANTITY SCANT GROWTH `````````````````````````````````````````````````````````` Repeat LLEXT wound cx WOUND CULTURE Final Organism 1 PSEUDOMONAS AERUGINOSA QUANTITY 2+ P.AERUG M.I.C. RX --------- --- AMIKACIN <=2 S AZTREONAM I CEFEPIME <=1 S CEFTAZIDIME 2 S CIPROFLOXACIN <=0.25 S GENTAMICIN <=1 S IMIPENEM >=16 R LEVOFLOXACIN 0.25 S TOBRAMYCIN <=1 S PIPERACILLIN/TAZOBACTAM <=4 S * MICRO 12/19/16 WOUND CULTURE Final Organism 1 PSEUDOMONAS AERUGINOSA QUANTITY 1+ P.AERUG M.I.C. RX --------- --- AMIKACIN <=2 S AZTREONAM S CEFEPIME 2 S CEFTAZIDIME 2 S CIPROFLOXACIN <=0.25 S GENTAMICIN <=1 S IMIPENEM >=16 R LEVOFLOXACIN 0.25 S TOBRAMYCIN <=1 S PIPERACILLIN/TAZOBACTAM 8 S 11/14/16 WOUND CULTURE Final Organism 1 PSEUDOMONAS AERUGINOSA QUANTITY 1+ Organism 2 CORYNEBACTER JEIKEIUM (GRP JK) QUANTITY 4+ Organism 3 ACINETOBACTER BAUMANNII QUANTITY 1+ Organism 4 ALPHA HEMOLYTIC STREP SPP QUANTITY SCANT GROWTH . VIRIDANS GROUP GENERAL: She is an elderly -[place] woman, VSS, NAD HEENT: Unremarkable NECK: Supple, full ROM CHEST: Equal chest rise bilaterally, without dyspnea on observation CV: Radial pulse RRR ABDOMEN: Soft, nontender, nondistended. LOWER EXTREMITIES: 2+ DP pulses/LLEXT DSG C/D/I. ID ASSESSMENT 76 yo F admit with: 1. SIRS w/low grade temps 99.+ range, lethargy/fatigue 2. 12/29/16 (+)Yeast UTI URINE CULTURE Preliminary Organism 1 YEAST COLONY COUNT >100,000 CFU/ml 3. Left lower extremity nonhealing wounds. Failed outpatient treatment. * Followed by podiatry and vascular surgery=> Per Dr. Rashid note plan is for eventual debrided once abx onboard 4. Peripheral Vascular Disease = Mixed venous insufficiency + arterial disease * Hx of bilateral lower extremity arterial bypass surgery early 2016 @ [facility] w/patent bypass grafts * Continued on antiplatelet therapy 4. Essential hypertension. 5. GERD 6. Dyslipidemia = on statins. 7. Tobaccoism -> 1-cig per day ? nicotine patch 8. ?Psych? => Noncompliance with medical tx despite severity of condition 9. Cachexia; frailty, general debility 2/2 chronic illness/chronic co-morbid conditions 10. Glaucoma -> Timolol eye gtts (-)MRSA Nares CURRENT ABX: DAY #8 => Vanco IV + Levaquin + Cefepime #1 + Cancidas #1 s/p Azactam -> DC'd 01/01 ID RECOMMENDATIONS 1. Continue ABX IV per failed OP po ABX 2. PSAR is developing resistance to Azactam -> change to Cefepime + continue Levaquin + Vanco * "Double ABX" coverage for PSAR is warranted strategy attempt to avoid MDRO. 3. Cancidas for yeast UTI 4. Per Dr. Rashid note: Plan for debride once ABX onboard to clear the infection. 5. WHIRLPOOL DEBRIDE ON HOLD FOR NOW. * Pt with significant slough, eschar ? if ABX WHIRLPOOL is intermediary option for cleaning to malodorous wounds with significant microbial burden. * Appreciate wound nurse telephone contact today -- in order to proceed to Whirlpool debride will need BLEXT Venous study to r/o DVT; I believe this was done recently prior facility. Additionally, PTx/wound care would need order for antiseptic whirlpool agent and Silvadene topical for post whirlpool.At this time will see how she does on current wound care plan with IV ABX and APC follow up. . . Problems: Consultation Date/Type/Reason Admit Date/Time Dec 26, 2016 at 14:43 Type of Consultation: ID Exam/Review of Systems Vital Signs Vitals Vital Signs Date Time Temp Pulse Resp B/P Pulse Ox O2 Delivery O2 Flow Rate FiO2 01/02/17 08:30 98.5 77 18 102/57 95 Room Air Intake and Output 01/01/17 01/01/17 01/02/17 15:00 23:00 07:00 Intake Total 200 ml 1840 ml Output Total 1300 ml Balance 200 ml 540 ml Results Result Diagram: 12/30/16 0504 01/02/17 0517 Results 24 hrs Laboratory Tests Test 01/02/17 05:17 Blood Urea Nitrogen 13 Creatinine 0.81 Medications Medications Current Medications Ondansetron HCl (Zofran Inj) 4 mg Q6H PRN IV NAUSEA AND/OR VOMITING; Start at 18:00 Acetaminophen (Tylenol Tab) 650 mg Q6H PRN PO PAIN LEVEL 1-3 OR FEVER; Start at 18:00 Acetaminophen/ Hydrocodone Bitart ([place] (5/325)) 1 tab Q6H PRN PO MODERATE PAIN LEVEL 4-6 Last administered on 01/02/17 00:40; Admin Dose 1 TAB; Start at 18:00 Magnesium Hydroxide (Milk Of Mag) 30 ml DAILY PRN PO CONSTIPATION; Start at 18:00 Bisacodyl (Dulcolax) 5 mg DAILY PRN PO CONSTIPATION Last administered on 21:04; Admin Dose 5 MG; Start 12/26/16 at 18:00 Famotidine (Pepcid) 20 mg Q12 PO Last administered on 01/02/17 08:41; Admin Dose 20 MG; Start 12/26/16 at 21:00 Clopidogrel Bisulfate (plaVIX) 75 mg DAILY PO Last administered on 01/02/17 08: 40; Admin Dose 75 MG; Start 12/27/16 at 09:00 Hydrochlorothiazide (Hydrochlorothiazide) 12.5 mg DAILY PO Last administered on 01/01/17 08:46; Admin Dose 12.5 MG; Start 12/27/16 at 09:00 Amlodipine Besylate (Norvasc) 5 mg DAILY PO Last administered on 01/01/17 08:44 ; Admin Dose 5 MG; Start 12/27/16 at 09:00 Atorvastatin Calcium (Lipitor) 10 mg QHS PO Last administered on 01/01/17 20:22 ; Admin Dose 10 MG; Start 12/26/16 at 21:00 Hydralazine HCl (Apresoline) 10 mg Q6H PRN IV SBP>160; Start 12/26/16 at 18:00 Losartan Potassium (Cozaar) 100 mg DAILY PO Last administered on 01/01/17 08:45 ; Admin Dose 100 MG; Start 12/27/16 at 09:00 Nicotine 1 patch 1 patch DAILY TRANSDERM ; Start 12/26/16 at 18:30 Levofloxacin/ Dextrose (Levaquin 500mg/ D5W 100 ml (Pmx)) 100 ml @ 100 mls/hr Q24H IVPB Last administered on 01/01/17 13:52; Admin Dose 100 MLS/HR; Start at 14:00 Guaifenesin/ Dextromethorphan (Robitussin Dm Liquid Cup) 5 ml Q4H PRN PO Cough Last administered on 12/27/16 15:46; Admin Dose 5 ML; Start 12/27/16 at 16:00 Timolol Maleate (Timoptic 0.5%) 1 drop BID BOTH EYES Last administered on 08:39; Admin Dose 1 DROP; Start 12/27/16 at 21:00 Latanoprost (Xalatan) 1 drop QHS BOTH EYES Last administered on 01/01/17 22:11 ; Admin Dose 1 DROP; Start 12/27/16 at 21:30 Cholecalciferol (Vitamin D) 2,000 unit DAILY PO Last administered on 01/02/17 08:41; Admin Dose 2,000 UNIT; Start 12/28/16 at 10:30 Enoxaparin Sodium 30 mg 30 mg DAILY SC Last administered on 01/02/17 08:57; Admin Dose 30 MG; Start 12/28/16 at 11:00 Vancomycin HCl (Vancocin) 100 ml @ 100 mls/hr Q12H IVPB Last administered on 08:39; Admin Dose 100 MLS/HR; Start 12/30/16 at 08:00 Morphine Sulfate 2 mg 2 mg Q4H PRN IV SEVERE PAIN LEVEL 7-10 Last administered on 01/02/17 05:43; Admin Dose 2 MG; Start 12/30/16 at 14:15 Cefepime HCl 50 ml @ 100 mls/hr Q24H IVPB Last administered on 01/01/17 22:11 ; Admin Dose 100 MLS/HR; Start 12/31/16 at 21:00 Caspofungin/ Sodium Chloride (Cancidas/NS) 250 ml @ 250 mls/hr Q24H IVPB Last administered on 01/01/17 15:43; Admin Dose 250 MLS/HR; Start 01/01/17 at 15:30 Collagenase (Santyl) 1 applic DAILY TOP Last administered on 01/02/17 08:42; Admin Dose 1 APPLIC; Start 01/01/17 at 16:30 NIELS KNAPP NP Jan 02, 2017 13:04
[2017-01-02] MEDS: LEVOFLOXACIN 500MG/D5W (PMX) 100 ML IVPB SCH (14:07)
[2017-01-02 14:41] VITALS: BP 137/65; RESP 18
[2017-01-02] MEDS: CASPOFUNGIN 50 MG in SOD CHLORIDE 0.9% 250 ML IVPB SCH (16:58)
[2017-01-02 19:24] VITALS: BP 113/54; RESP 18
[2017-01-02] MEDS: LATANOPROST 0.005% 2.5 ML OPH BOTH EYES SCH (21:06)
[2017-01-02] MEDS: CEFEPIME 1GM/50 ML (PMX) 50 ML IVPB SCH (21:06)
[2017-01-02] MEDS: ATORVASTATIN 10 MG TAB PO SCH (21:06)
[2017-01-03 01:41] VITALS: BP 118/60; RESP 18
[2017-01-03] MEDS: morphine 4 MG/ML VIAL IV PRN (05:28)
[2017-01-03 06:42] LABS: BASOPHILS % 0.3 % (0.0-2.0); EOSINOPHILS # 0.1 10^3/ul (0.0-0.5); EOSINOPHILS % 1.5 % (0.0-7.0); HEMATOCRIT 31.9 % (37.0-47.0); HEMOGLOBIN 10.4 g/dl (12.0-16.0); LYMPHOCYTES % 15.9 % (15.0-51.0); MEAN CORPUSCULAR HEMOGLOBIN 29.3 pg (29.0-33.0); MEAN CORPUSCULAR HGB CONC 32.6 g/dl (32.0-37.0); MEAN CORPUSCULAR VOLUME 89.9 fl (82.0-101.0); MEAN PLATELET VOLUME 9.1 fl (7.4-10.4); MONOCYTE # 0.8 10^3/ul (0.3-0.9); MONOCYTES % 12.5 % (0.0-11.0); NEUTROPHIL # 4.5 10^3/ul (1.6-7.5); NEUTROPHILS % 69.2 % (39.0-77.0); PLATELET COUNT 442 10^3/UL (140-415); RED BLOOD COUNT 3.55 10^6/ul (4.20-5.40); RED CELL DISTRIBUTION WIDTH 13.2 % (11.5-14.5); WHITE BLOOD COUNT 6.5 10^3/ul (4.8-10.8)
[2017-01-03 07:14] LABS: CREATININE 0.79 mg/dl (0.44-1.00); POTASSIUM 4.1 mmol/L (3.5-5.1)
[2017-01-03 07:24] VITALS: BP 108/55; RESP 18
[2017-01-03] MEDS: CHOLECALCIFEROL 2,000 UNIT CAP PO SCH (08:26)
[2017-01-03] MEDS: FAMOTIDINE 20 MG TAB PO SCH ×2 (08:26→20:14)
[2017-01-03] MEDS: CLOPIDOGREL 75 MG TAB PO SCH (08:26)
[2017-01-03] MEDS: AMLODIPINE 5 MG TAB PO SCH (08:26)
[2017-01-03] MEDS: VANCOMYCIN 500MG/NS (PMX) 100 ML IVPB SCH ×2 (08:26→20:13)
[2017-01-03] MEDS: HYDROCHLOROTHIAZIDE 12.5 MG CAP PO SCH (08:26)
[2017-01-03] MEDS: NICOTINE (7 MG/24 HR) PATCH TRANSDERM SCH (08:27)
[2017-01-03] MEDS: LOSARTAN 50 MG TAB PO SCH (08:27)
[2017-01-03] MEDS: TIMOLOL 0.5% 5 ML OPH BOTH EYES SCH ×2 (08:27→20:13)
[2017-01-03] MEDS: COLLAGENASE 30 GM TUBE TOP SCH (08:28)
[2017-01-03] MEDS: ENOXAPARIN 30 MG/0.3 ML SYG SC SCH (08:56)
[2017-01-03] MEDS: HYDROCODONE/APAP (5/325) TAB PO PRN ×2 (09:25→16:50)
--- NOTE | 2017-01-03 09:42 | PN ---
Date/Time of Note Date/Time of Note DATE: 01/03/17 TIME: 09:24 Assessment/Plan VTE Prophylaxis VTE Prophylaxis Intervention: LMWH Lines/Catheters IV [facility]ter Type (from [facility]): Peripheral IV Assessment/Plan Chief Complaint/Hosp Course Assessment and plan 1. Left lower extremity nonhealing wounds. Patient did fail outpatient treatment. On antibiotics for now. wound care nurse following. Will continue with wound care . 2. Essential hypertension. Appears stable at present.continue on antihypetensives 3. History of dyslipidemia. Patient resumed on statin medication 4. PVD. On heparin therapy. Vascular surgeon following. continue with recommendations 5. Normocytic normochromic anemia likely of chronic disease. H&H remained stable at present. Will monitor for now. Disposition plan: Tentative plan for LLE intervention. f/u with vascular surgeon. continue with recs Discussed plan of care with Dr. Neal Problems: Subjective 24 Hr Interval Summary Free Text/Dictation no s/s of distress. comfortable at present Exam/Review of Systems Vital Signs Vitals Vital Signs Date Time Temp Pulse Resp B/P Pulse Ox O2 Delivery O2 Flow Rate FiO2 01/03/17 07:24 97.7 85 18 108/55 95 01/02/17 08:30 Room Air Intake and Output 01/02/17 01/02/17 01/03/17 15:00 23:00 07:00 Intake Total 600 ml 1540 ml 400 ml Output Total 1460 ml 550 ml 350 ml Balance -860 ml 990 ml 50 ml Exam Constitutional: alert, oriented Psych: nl mood/affect Neck: No jvd Respiratory: clear to auscultation Cardiovascular: nl pulses, regular rate and rhythm Gastrointestinal: soft Musculoskeletal: No nl gait and stance Neurological: SHUTTLECOCK ASSEMBLER II-XII intact, nl mental status, nl speech Skin: other (Left lower extremity wound with dressing in place) Results Result Diagram: 01/03/1752501/03/17525 Results 24 hrs Laboratory Tests Test 01/03/17 05:26 White Blood Count 6.5 # Red Blood Count 3.55 L Hemoglobin 10.4 L Hematocrit 31.9 L Mean Corpuscular Volume 89.9 Mean Corpuscular Hemoglobin 29.3 Mean Corpuscular Hemoglobin Concent 32.6 Red Cell Distribution Width 13.2 Platelet Count 442 H Mean Platelet Volume 9.1 Neutrophils % 69.2 Lymphocytes % 15.9 Monocytes % 12.5 H Eosinophils % 1.5 Basophils % 0.3 Nucleated Red Blood Cells % 0.0 Neutrophils # 4.5 Lymphocytes # 1.0 Monocytes # 0.8 Eosinophils # 0.1 Basophils # 0.0 Nucleated Red Blood Cells # 0.0 Sodium Level 143 Potassium Level 4.1 Chloride Level 104 Carbon Dioxide Level 26 Anion Gap 17 H Blood Urea Nitrogen 13 Creatinine 0.79 Glucose Level 90 Calcium Level 9.0 Medications Medications Current Medications Ondansetron HCl (Zofran Inj) 4 mg Q6H PRN IV NAUSEA AND/OR VOMITING; Start at 18:00 Acetaminophen (Tylenol Tab) 650 mg Q6H PRN PO PAIN LEVEL 1-3 OR FEVER; Start at 18:00 Acetaminophen/ Hydrocodone Bitart ([place] (5/325)) 1 tab Q6H PRN PO MODERATE PAIN LEVEL 4-6 Last administered on 01/02/17 19:52; Admin Dose 1 TAB; Start at 18:00 Magnesium Hydroxide (Milk Of Mag) 30 ml DAILY PRN PO CONSTIPATION; Start at 18:00 Bisacodyl (Dulcolax) 5 mg DAILY PRN PO CONSTIPATION Last administered on 21:04; Admin Dose 5 MG; Start 12/26/16 at 18:00 Famotidine (Pepcid) 20 mg Q12 PO Last administered on 01/03/17 08:26; Admin Dose 20 MG; Start 12/26/16 at 21:00 Clopidogrel Bisulfate (plaVIX) 75 mg DAILY PO Last administered on 01/03/17 08: 26; Admin Dose 75 MG; Start 12/27/16 at 09:00 Hydrochlorothiazide (Hydrochlorothiazide) 12.5 mg DAILY PO Last administered on 01/03/17 08:26; Admin Dose 12.5 MG; Start 12/27/16 at 09:00 Amlodipine Besylate (Norvasc) 5 mg DAILY PO Last administered on 01/03/17 08:26 ; Admin Dose 5 MG; Start 12/27/16 at 09:00 Atorvastatin Calcium (Lipitor) 10 mg QHS PO Last administered on 01/02/17 21:06 ; Admin Dose 10 MG; Start 12/26/16 at 21:00 Hydralazine HCl (Apresoline) 10 mg Q6H PRN IV SBP>160; Start 12/26/16 at 18:00 Losartan Potassium (Cozaar) 100 mg DAILY PO Last administered on 01/03/17 08:27 ; Admin Dose 100 MG; Start 12/27/16 at 09:00 Nicotine 1 patch 1 patch DAILY TRANSDERM ; Start 12/26/16 at 18:30 Levofloxacin/ Dextrose (Levaquin 500mg/ D5W 100 ml (Pmx)) 100 ml @ 100 mls/hr Q24H IVPB Last administered on 01/02/17 14:07; Admin Dose 100 MLS/HR; Start at 14:00 Guaifenesin/ Dextromethorphan (Robitussin Dm Liquid Cup) 5 ml Q4H PRN PO Cough Last administered on 12/27/16 15:46; Admin Dose 5 ML; Start 12/27/16 at 16:00 Timolol Maleate (Timoptic 0.5%) 1 drop BID BOTH EYES Last administered on 08:27; Admin Dose 1 DROP; Start 12/27/16 at 21:00 Latanoprost (Xalatan) 1 drop QHS BOTH EYES Last administered on 01/02/17 21:06 ; Admin Dose 1 DROP; Start 12/27/16 at 21:30 Cholecalciferol (Vitamin D) 2,000 unit DAILY PO Last administered on 01/03/17 08:26; Admin Dose 2,000 UNIT; Start 12/28/16 at 10:30 Enoxaparin Sodium 30 mg 30 mg DAILY SC Last administered on 01/03/17 08:56; Admin Dose 30 MG; Start 12/28/16 at 11:00 Vancomycin HCl (Vancocin) 100 ml @ 100 mls/hr Q12H IVPB Last administered on 08:26; Admin Dose 100 MLS/HR; Start 12/30/16 at 08:00 Morphine Sulfate 2 mg 2 mg Q4H PRN IV SEVERE PAIN LEVEL 7-10 Last administered on 01/03/17 05:28; Admin Dose 2 MG; Start 12/30/16 at 14:15 Cefepime HCl 50 ml @ 100 mls/hr Q24H IVPB Last administered on 01/02/17 21:06 ; Admin Dose 100 MLS/HR; Start 12/31/16 at 21:00 Caspofungin/ Sodium Chloride (Cancidas/NS) 250 ml @ 250 mls/hr Q24H IVPB Last administered on 01/02/17 16:58; Admin Dose 250 MLS/HR; Start 01/01/17 at 15:30 Collagenase (Santyl) 1 applic DAILY TOP Last administered on 01/03/17 08:28; Admin Dose 1 APPLIC; Start 01/01/17 at 16:30 CATHERINE CORNELIUS Jan 03, 2017 09:42
--- NOTE | 2017-01-03 11:04 | CONS ---
Date/Time of Note Date/Time of Note DATE: 01/03/17 TIME: 10:59 Assessment/Plan Assessment/Plan Chief Complaint/Hosp Course Assessment/Plan Chief Complaint/Hosp Course ID PROGRESS NOTE CURRENT ABX: DAY #8 => Vanco IV + Levaquin + Cefepime #1 + Cancidas #1 s/p Azactam -> DC'd 01/01 24H SUMMARY 1. Alert. Awake. Denies Pain. RLEXT Wound WOUND CULTURE Final Organism 1 COAGULASE NEGATIVE STAPH QUANTITY SCANT GROWTH Organism 2 CORYNEBACTER JEIKEIUM (GRP JK) QUANTITY SCANT GROWTH `````````````````````````````````````````````````````````` Repeat LLEXT wound cx WOUND CULTURE Final Organism 1 PSEUDOMONAS AERUGINOSA QUANTITY 2+ P.AERUG M.I.C. RX --------- --- AMIKACIN <=2 S AZTREONAM I CEFEPIME <=1 S CEFTAZIDIME 2 S CIPROFLOXACIN <=0.25 S GENTAMICIN <=1 S IMIPENEM >=16 R LEVOFLOXACIN 0.25 S TOBRAMYCIN <=1 S PIPERACILLIN/TAZOBACTAM <=4 S * MICRO 12/19/16 WOUND CULTURE Final Organism 1 PSEUDOMONAS AERUGINOSA QUANTITY 1+ P.AERUG M.I.C. RX --------- --- AMIKACIN <=2 S AZTREONAM S CEFEPIME 2 S CEFTAZIDIME 2 S CIPROFLOXACIN <=0.25 S GENTAMICIN <=1 S IMIPENEM >=16 R LEVOFLOXACIN 0.25 S TOBRAMYCIN <=1 S PIPERACILLIN/TAZOBACTAM 8 S 11/14/16 WOUND CULTURE Final Organism 1 PSEUDOMONAS AERUGINOSA QUANTITY 1+ Organism 2 CORYNEBACTER KEVINIKEIUM (GRP JK) QUANTITY 4+ Organism 3 ACINETOBACTER BAUMANNII QUANTITY 1+ Organism 4 ALPHA HEMOLYTIC STREP SPP QUANTITY SCANT GROWTH . VIRIDANS GROUP GENERAL: She is an elderly -[place] woman, VSS, NAD HEENT: Unremarkable NECK: Supple, full ROM CHEST: Equal chest rise bilaterally, without dyspnea on observation CV: Radial pulse RRR ABDOMEN: Soft, nontender, nondistended. LOWER EXTREMITIES: 2+ DP pulses/LLEXT DSG C/D/I. ID ASSESSMENT 76 yo F admit with: 1. SIRS w/low grade temps 99.+ range, lethargy/fatigue 2. 12/29/16 (+)Yeast UTI URINE CULTURE Preliminary Organism 1 YEAST COLONY COUNT >100,000 CFU/ml 3. Left lower extremity nonhealing wounds. Failed outpatient treatment. * Followed by podiatry and vascular surgery=> Per Dr. Rashid note plan is for eventual debrided once abx onboard 4. Peripheral Vascular Disease = Mixed venous insufficiency + arterial disease * Hx of bilateral lower extremity arterial bypass surgery early 2016 @ [facility] w/patent bypass grafts * Continued on antiplatelet therapy 4. Essential hypertension. 5. GERD 6. Dyslipidemia = on statins. 7. Tobaccoism -> 1-cig per day ? nicotine patch 8. ?Psych? => Noncompliance with medical tx despite severity of condition 9. Cachexia; frailty, general debility 2/2 chronic illness/chronic co-morbid conditions 10. Glaucoma -> Timolol eye gtts (-)MRSA Nares CURRENT ABX: DAY #8 => Vanco IV + Levaquin + Cefepime #1 + Cancidas #1 s/p Azactam -> DC'd 01/01 ID RECOMMENDATIONS 1. Continue ABX IV per failed OP po ABX 2. PSAR is developing resistance to Azactam -> change to Cefepime + continue Levaquin + Vanco * "Double ABX" coverage for PSAR is warranted strategy attempt to avoid MDRO. 3. Cancidas for yeast UTI 4. Per Dr. Rashid note: Plan for debride once ABX onboard to clear the infection. 5. WHIRLPOOL DEBRIDE ON HOLD FOR NOW. * Pt with significant slough, eschar ? if ABX WHIRLPOOL is intermediary option for cleaning to malodorous wounds with significant microbial burden. * Appreciate wound nurse telephone contact today -- in order to proceed to Whirlpool debride will need BLEXT Venous study to r/o DVT; I believe this was done recently prior facility. Additionally, PTx/wound care would need order for antiseptic whirlpool agent and Silvadene topical for post whirlpool.At this time will see how she does on current wound care plan with IV ABX and APC follow up. 6. Pain Management. Problems: Consultation Date/Type/Reason Admit Date/Time Dec 26, 2016 at 14:43 Type of Consultation: ID Exam/Review of Systems Vital Signs Vitals Vital Signs Date Time Temp Pulse Resp B/P Pulse Ox O2 Delivery O2 Flow Rate FiO2 01/03/17 07:24 97.7 85 18 108/55 95 01/02/17 08:30 Room Air Intake and Output 01/02/17 01/02/17 01/03/17 15:00 23:00 07:00 Intake Total 600 ml 1540 ml 400 ml Output Total 1460 ml 550 ml 350 ml Balance -860 ml 990 ml 50 ml Results Result Diagram: 01/03/17 0526 01/03/17 0526 Results 24 hrs Laboratory Tests Test 01/03/17 05:26 White Blood Count 6.5 # Red Blood Count 3.55 L Hemoglobin 10.4 L Hematocrit 31.9 L Mean Corpuscular Volume 89.9 Mean Corpuscular Hemoglobin 29.3 Mean Corpuscular Hemoglobin Concent 32.6 Red Cell Distribution Width 13.2 Platelet Count 442 H Mean Platelet Volume 9.1 Neutrophils % 69.2 Lymphocytes % 15.9 Monocytes % 12.5 H Eosinophils % 1.5 Basophils % 0.3 Nucleated Red Blood Cells % 0.0 Neutrophils # 4.5 Lymphocytes # 1.0 Monocytes # 0.8 Eosinophils # 0.1 Basophils # 0.0 Nucleated Red Blood Cells # 0.0 Sodium Level 143 Potassium Level 4.1 Chloride Level 104 Carbon Dioxide Level 26 Anion Gap 17 H Blood Urea Nitrogen 13 Creatinine 0.79 Glucose Level 90 Calcium Level 9.0 Magnesium Level 1.6 L Medications Medications Current Medications Ondansetron HCl (Zofran Inj) 4 mg Q6H PRN IV NAUSEA AND/OR VOMITING; Start at 18:00 Acetaminophen (Tylenol Tab) 650 mg Q6H PRN PO PAIN LEVEL 1-3 OR FEVER; Start at 18:00 Acetaminophen/ Hydrocodone Bitart ([place] (5/325)) 1 tab Q6H PRN PO MODERATE PAIN LEVEL 4-6 Last administered on 01/03/17 09:25; Admin Dose 1 TAB; Start at 18:00 Magnesium Hydroxide (Milk Of Mag) 30 ml DAILY PRN PO CONSTIPATION; Start at 18:00 Bisacodyl (Dulcolax) 5 mg DAILY PRN PO CONSTIPATION Last administered on 21:04; Admin Dose 5 MG; Start 12/26/16 at 18:00 Famotidine (Pepcid) 20 mg Q12 PO Last administered on 01/03/17 08:26; Admin Dose 20 MG; Start 12/26/16 at 21:00 Clopidogrel Bisulfate (plaVIX) 75 mg DAILY PO Last administered on 01/03/17 08: 26; Admin Dose 75 MG; Start 12/27/16 at 09:00 Hydrochlorothiazide (Hydrochlorothiazide) 12.5 mg DAILY PO Last administered on 01/03/17 08:26; Admin Dose 12.5 MG; Start 12/27/16 at 09:00 Amlodipine Besylate (Norvasc) 5 mg DAILY PO Last administered on 01/03/17 08:26 ; Admin Dose 5 MG; Start 12/27/16 at 09:00 Atorvastatin Calcium (Lipitor) 10 mg QHS PO Last administered on 01/02/17 21:06 ; Admin Dose 10 MG; Start 12/26/16 at 21:00 Hydralazine HCl (Apresoline) 10 mg Q6H PRN IV SBP>160; Start 12/26/16 at 18:00 Losartan Potassium (Cozaar) 100 mg DAILY PO Last administered on 01/03/17 08:27 ; Admin Dose 100 MG; Start 12/27/16 at 09:00 Nicotine 1 patch 1 patch DAILY TRANSDERM ; Start 12/26/16 at 18:30 Levofloxacin/ Dextrose (Levaquin 500mg/ D5W 100 ml (Pmx)) 100 ml @ 100 mls/hr Q24H IVPB Last administered on 01/02/17 14:07; Admin Dose 100 MLS/HR; Start at 14:00 Guaifenesin/ Dextromethorphan (Robitussin Dm Liquid Cup) 5 ml Q4H PRN PO Cough Last administered on 12/27/16 15:46; Admin Dose 5 ML; Start 12/27/16 at 16:00 Timolol Maleate (Timoptic 0.5%) 1 drop BID BOTH EYES Last administered on 08:27; Admin Dose 1 DROP; Start 12/27/16 at 21:00 Latanoprost (Xalatan) 1 drop QHS BOTH EYES Last administered on 01/02/17 21:06 ; Admin Dose 1 DROP; Start 12/27/16 at 21:30 Cholecalciferol (Vitamin D) 2,000 unit DAILY PO Last administered on 01/03/17 08:26; Admin Dose 2,000 UNIT; Start 12/28/16 at 10:30 Enoxaparin Sodium 30 mg 30 mg DAILY SC Last administered on 01/03/17 08:56; Admin Dose 30 MG; Start 12/28/16 at 11:00 Vancomycin HCl (Vancocin) 100 ml @ 100 mls/hr Q12H IVPB Last administered on 08:26; Admin Dose 100 MLS/HR; Start 12/30/16 at 08:00 Morphine Sulfate 2 mg 2 mg Q4H PRN IV SEVERE PAIN LEVEL 7-10 Last administered on 01/03/17 05:28; Admin Dose 2 MG; Start 12/30/16 at 14:15 Cefepime HCl 50 ml @ 100 mls/hr Q24H IVPB Last administered on 01/02/17 21:06 ; Admin Dose 100 MLS/HR; Start 12/31/16 at 21:00 Caspofungin/ Sodium Chloride (Cancidas/NS) 250 ml @ 250 mls/hr Q24H IVPB Last administered on 01/02/17 16:58; Admin Dose 250 MLS/HR; Start 01/01/17 at 15:30 Collagenase (Santyl) 1 applic DAILY TOP Last administered on 01/03/17t 08:28; Admin Dose 1 APPLIC; Start 01/01/17 at 16:30 VERONICA CORTEZ NP Jan 03, 2017 11:04
[2017-01-03] MEDS ORDERED: MAGNESIUM SULFATE 2 GM/50 ML 50 ML IVPB ONE (12:30)
[2017-01-03 12:57] VITALS: BP 118/57; RESP 20
[2017-01-03] MEDS: LEVOFLOXACIN 500MG/D5W (PMX) 100 ML IVPB SCH (15:19)
[2017-01-03] MEDS: CASPOFUNGIN 50 MG in SOD CHLORIDE 0.9% 250 ML IVPB SCH (16:09)
[2017-01-03 19:36] VITALS: BP 109/59; RESP 18
[2017-01-03] MEDS: ATORVASTATIN 10 MG TAB PO SCH (20:14)
[2017-01-03] MEDS: LATANOPROST 0.005% 2.5 ML OPH BOTH EYES SCH (20:14)
[2017-01-03] MEDS: CEFEPIME 1GM/50 ML (PMX) 50 ML IVPB SCH (21:52)
[2017-01-04] MEDS: HYDROCODONE/APAP (5/325) TAB PO PRN ×3 (01:09→16:58)
[2017-01-04 02:01] VITALS: BP 94/50; RESP 18
[2017-01-04] MEDS: morphine 4 MG/ML VIAL IV PRN (05:39)
[2017-01-04 06:26] LABS: BASOPHILS % 0.4 % (0.0-2.0); EOSINOPHILS # 0.1 10^3/ul (0.0-0.5); EOSINOPHILS % 2.5 % (0.0-7.0); HEMOGLOBIN 9.6 g/dl (12.0-16.0); LYMPHOCYTES % 18.1 % (15.0-51.0); MEAN CORPUSCULAR HEMOGLOBIN 28.7 pg (29.0-33.0); MEAN CORPUSCULAR VOLUME 89.8 fl (82.0-101.0); MONOCYTE # 0.8 10^3/ul (0.3-0.9); MONOCYTES % 15.6 % (0.0-11.0); NEUTROPHIL # 3.3 10^3/ul (1.6-7.5); NEUTROPHILS % 62.6 % (39.0-77.0); PLATELET COUNT 377 10^3/UL (140-415); RED BLOOD COUNT 3.34 10^6/ul (4.20-5.40); RED CELL DISTRIBUTION WIDTH 13.2 % (11.5-14.5); WHITE BLOOD COUNT 5.2 10^3/ul (4.8-10.8)
[2017-01-04 06:54] LABS: CALCIUM 8.9 mg/dl (8.4-10.2); CREATININE 0.72 mg/dl (0.44-1.00); POTASSIUM 3.9 mmol/L (3.5-5.1)
[2017-01-04] MEDS: VANCOMYCIN 500MG/NS (PMX) 100 ML IVPB SCH (08:06)
[2017-01-04 08:12] VITALS: BP 107/58; RESP 20
[2017-01-04] MEDS: CHOLECALCIFEROL 2,000 UNIT CAP PO SCH (08:52)
[2017-01-04] MEDS: CLOPIDOGREL 75 MG TAB PO SCH (08:52)
[2017-01-04] MEDS: FAMOTIDINE 20 MG TAB PO SCH ×2 (08:53→20:48)
[2017-01-04] MEDS: AMLODIPINE 5 MG TAB PO SCH (08:54)
[2017-01-04] MEDS: TIMOLOL 0.5% 5 ML OPH BOTH EYES SCH ×2 (08:57→20:48)
[2017-01-04] MEDS: NICOTINE (7 MG/24 HR) PATCH TRANSDERM SCH (08:58)
[2017-01-04] MEDS: COLLAGENASE 30 GM TUBE TOP SCH (08:58)
[2017-01-04] MEDS: ENOXAPARIN 30 MG/0.3 ML SYG SC SCH (09:29)
[2017-01-04] MEDS: HYDROCHLOROTHIAZIDE 12.5 MG CAP PO SCH (10:25)
[2017-01-04] MEDS: LOSARTAN 50 MG TAB PO SCH (10:25)
[2017-01-04 10:27] VITALS: BP 111/57; PULSE 70
--- NOTE | 2017-01-04 12:00 | CONS ---
Date/Time of Note Date/Time of Note DATE: 01/04/17 TIME: 11:48 Assessment/Plan Assessment/Plan Chief Complaint/Hosp Course Assessment/Plan Chief Complaint/Hosp Course ID PROGRESS NOTE CURRENT ABX: DAY #8 => Vanco IV + Levaquin + Cefepime #1 + Cancidas #1 s/p Azactam -> DC'd 01/01 24H SUMMARY 1. Alert. Awake. Complains of Left Knee Pain. RLEXT Wound WOUND CULTURE Final Organism 1 COAGULASE NEGATIVE STAPH QUANTITY SCANT GROWTH Organism 2 CORYNEBACTER JEIKEIUM (GRP JK) QUANTITY SCANT GROWTH `````````````````````````````````````````````````````````` Repeat LLEXT wound cx WOUND CULTURE Final Organism 1 PSEUDOMONAS AERUGINOSA QUANTITY 2+ P.AERUG M.I.C. RX --------- --- AMIKACIN <=2 S AZTREONAM I CEFEPIME <=1 S CEFTAZIDIME 2 S CIPROFLOXACIN <=0.25 S GENTAMICIN <=1 S IMIPENEM >=16 R LEVOFLOXACIN 0.25 S TOBRAMYCIN <=1 S PIPERACILLIN/TAZOBACTAM <=4 S * MICRO 12/19/16 WOUND CULTURE Final Organism 1 PSEUDOMONAS AERUGINOSA QUANTITY 1+ P.AERUG M.I.C. RX --------- --- AMIKACIN <=2 S AZTREONAM S CEFEPIME 2 S CEFTAZIDIME 2 S CIPROFLOXACIN <=0.25 S GENTAMICIN <=1 S IMIPENEM >=16 R LEVOFLOXACIN 0.25 S TOBRAMYCIN <=1 S PIPERACILLIN/TAZOBACTAM 8 S 11/14/16 WOUND CULTURE Final Organism 1 PSEUDOMONAS AERUGINOSA QUANTITY 1+ Organism 2 CORYNEBACTER KEVINIKEIUM (GRP JK) QUANTITY 4+ Organism 3 ACINETOBACTER BAUMANNII QUANTITY 1+ Organism 4 ALPHA HEMOLYTIC STREP SPP QUANTITY SCANT GROWTH . VIRIDANS GROUP GENERAL: She is an elderly -[place]ian woman, VSS, NAD HEENT: Unremarkable NECK: Supple, full ROM CHEST: Equal chest rise bilaterally, without dyspnea on observation CV: Radial pulse RRR ABDOMEN: Soft, nontender, nondistended. LOWER EXTREMITIES: 2+ DP pulses/LLEXT DSG C/D/I. ID ASSESSMENT 76 yo F admit with: 1. SIRS w/low grade temps 99.+ range, lethargy/fatigue 2. 12/29/16 (+)Yeast UTI URINE CULTURE Preliminary Organism 1 YEAST COLONY COUNT >100,000 CFU/ml 3. Left lower extremity nonhealing wounds. Failed outpatient treatment. * Followed by podiatry and vascular surgery=> Per Dr. Rashid note plan is for eventual debrided once abx onboard 4. Peripheral Vascular Disease = Mixed venous insufficiency + arterial disease * Hx of bilateral lower extremity arterial bypass surgery early 2015 @ [facility] w/patent bypass grafts * Continued on antiplatelet therapy 4. Essential hypertension. 5. GERD 6. Dyslipidemia = on statins. 7. Tobaccoism -> 1-cig per day ? nicotine patch 8. ?Psych? => Noncompliance with medical tx despite severity of condition 9. Cachexia; frailty, general debility 2/2 chronic illness/chronic co-morbid conditions 10. Glaucoma -> Timolol eye gtts 11. Left Knee Pain (-)MRSA Nares CURRENT ABX: DAY #8 => Vanco IV + Levaquin + Cefepime #1 + Cancidas #1 s/p Azactam -> DC'd 01/01 ID RECOMMENDATIONS 1. Discussed with Infectious Disease Team - May Discharge on Two Antibiotics Levaquin 500 mg PO x 3 weeks AND Doxycycline 100 mg Q12 Hours PO x 3 weeks. 2. Pain Management. Problems: Consultation Date/Type/Reason Admit Date/Time Dec 26, 2016 at 14:43 Type of Consultation: ID Exam/Review of Systems Vital Signs Vitals Vital Signs Date Time Temp Pulse Resp B/P Pulse Ox O2 Delivery O2 Flow Rate FiO2 01/04/17 10:27 70 111/57 01/04/17 08:12 97.6 20 99 01/02/17 08:30 Room Air Intake and Output 01/03/17 01/03/17 01/04/17 15:00 23:00 07:00 Intake Total 1490 ml 400 ml Output Total 1000 ml 1600 ml Balance 490 ml -1200 ml Results Result Diagram: 01/04/17 0533 01/04/17 0533 Results 24 hrs Laboratory Tests Test 01/04/17 05:33 White Blood Count 5.2 Red Blood Count 3.34 L Hemoglobin 9.6 L Hematocrit 30.0 L Mean Corpuscular Volume 89.8 Mean Corpuscular Hemoglobin 28.7 L Mean Corpuscular Hemoglobin Concent 32.0 Red Cell Distribution Width 13.2 Platelet Count 377 Mean Platelet Volume 9.0 Neutrophils % 62.6 Lymphocytes % 18.1 Monocytes % 15.6 H Eosinophils % 2.5 Basophils % 0.4 Nucleated Red Blood Cells % 0.0 Neutrophils # 3.3 Lymphocytes # 1.0 Monocytes # 0.8 Eosinophils # 0.1 Basophils # 0.0 Nucleated Red Blood Cells # 0.0 Sodium Level 140 Potassium Level 3.9 Chloride Level 102 Carbon Dioxide Level 26 Anion Gap 16 Blood Urea Nitrogen 11 Creatinine 0.72 Glucose Level 97 Calcium Level 8.9 Medications Medications Current Medications Ondansetron HCl (Zofran Inj) 4 mg Q6H PRN IV NAUSEA AND/OR VOMITING; Start at 18:00 Acetaminophen (Tylenol Tab) 650 mg Q6H PRN PO PAIN LEVEL 1-3 OR FEVER; Start at 18:00 Acetaminophen/ Hydrocodone Bitart ([place] (5/325)) 1 tab Q6H PRN PO MODERATE PAIN LEVEL 4-6 Last administered on 01/04/17t 10:30; Admin Dose 1 TAB; Start at 18:00 Magnesium Hydroxide (Milk Of Mag) 30 ml DAILY PRN PO CONSTIPATION; Start at 18:00 Bisacodyl (Dulcolax) 5 mg DAILY PRN PO CONSTIPATION Last administered on 21:04; Admin Dose 5 MG; Start 12/26/16 at 18:00 Famotidine (Pepcid) 20 mg Q12 PO Last administered on 01/04/17 08:53; Admin Dose 20 MG; Start 12/26/16 at 21:00 Clopidogrel Bisulfate (plaVIX) 75 mg DAILY PO Last administered on 01/04/17 08: 52; Admin Dose 75 MG; Start 12/27/16 at 09:00 Hydrochlorothiazide (Hydrochlorothiazide) 12.5 mg DAILY PO Last administered on 01/04/17 10:25; Admin Dose 12.5 MG; Start 12/27/16 at 09:00 Amlodipine Besylate (Norvasc) 5 mg DAILY PO Last administered on 01/04/17 08:54 ; Admin Dose 5 MG; Start 12/27/16 at 09:00 Atorvastatin Calcium (Lipitor) 10 mg QHS PO Last administered on 01/03/17 20:14 ; Admin Dose 10 MG; Start 12/26/16 at 21:00 Hydralazine HCl (Apresoline) 10 mg Q6H PRN IV SBP>160; Start 12/26/16 at 18:00 Losartan Potassium (Cozaar) 100 mg DAILY PO Last administered on 01/04/17 10:25 ; Admin Dose 100 MG; Start 12/27/16 at 09:00 Nicotine 1 patch 1 patch DAILY TRANSDERM ; Start 12/26/16 at 18:30 Levofloxacin/ Dextrose (Levaquin 500mg/ D5W 100 ml (Pmx)) 100 ml @ 100 mls/hr Q24H IVPB Last administered on 01/03/17 15:19; Admin Dose 100 MLS/HR; Start at 14:00 Guaifenesin/ Dextromethorphan (Robitussin Dm Liquid Cup) 5 ml Q4H PRN PO Cough Last administered on 12/27/16 15:46; Admin Dose 5 ML; Start 12/27/16 at 16:00 Timolol Maleate (Timoptic 0.5%) 1 drop BID BOTH EYES Last administered on 08:57; Admin Dose 1 DROP; Start 12/27/16 at 21:00 Latanoprost (Xalatan) 1 drop QHS BOTH EYES Last administered on 01/03/17 20:14 ; Admin Dose 1 DROP; Start 12/27/16 at 21:30 Cholecalciferol (Vitamin D) 2,000 unit DAILY PO Last administered on 01/04/17 08:52; Admin Dose 2,000 UNIT; Start 12/28/16 at 10:30 Enoxaparin Sodium 30 mg 30 mg DAILY SC Last administered on 01/04/17 09:29; Admin Dose 30 MG; Start 12/28/16 at 11:00 Vancomycin HCl (Vancocin) 100 ml @ 100 mls/hr Q12H IVPB Last administered on 08:06; Admin Dose 100 MLS/HR; Start 12/30/16 at 08:00 Morphine Sulfate 2 mg 2 mg Q4H PRN IV SEVERE PAIN LEVEL 7-10 Last administered on 01/04/17 05:39; Admin Dose 2 MG; Start 12/30/16 at 14:15 Cefepime HCl 50 ml @ 100 mls/hr Q24H IVPB Last administered on 01/03/17 21:52 ; Admin Dose 100 MLS/HR; Start 12/31/16 at 21:00 Caspofungin/ Sodium Chloride (Cancidas/NS) 250 ml @ 250 mls/hr Q24H IVPB Last administered on 01/03/17 16:09; Admin Dose 250 MLS/HR; Start 01/01/17 at 15:30 Collagenase (Santyl) 1 applic DAILY TOP Last administered on 01/04/17 08:58; Admin Dose 1 APPLIC; Start 01/01/17 at 16:30 VERONICA CORTEZ NP Jan 04, 2017 11:58
[2017-01-04] MEDS: LEVOFLOXACIN 500MG/D5W (PMX) 100 ML IVPB SCH (14:32)
[2017-01-04] MEDS ORDERED: DOXY-220 PO (14:51)
[2017-01-04] MEDS ORDERED: DOCU-144 PO (14:51)
[2017-01-04] MEDS ORDERED: LEVO500T10 PO (14:51)
[2017-01-04] MEDS ORDERED: SAN30GM TOP (14:51)
[2017-01-04] MEDS ORDERED: HYDR-905 PO (14:51)
--- NOTE | 2017-01-04 14:55 | PN ---
Date/Time of Note Date/Time of Note DATE: 01/04/17 TIME: 14:46 Assessment/Plan VTE Prophylaxis VTE Prophylaxis Intervention: LMWH Lines/Catheters IV Catheter Type (from [facility]): [facility] Assessment/Plan Chief Complaint/Hosp Course Assessment and plan 1. Left lower extremity nonhealing wounds. Patient did fail outpatient treatment. On antibiotics for now. wound care nurse following. Will continue with wound care . No plan for surgical intervention at this time 2. Essential hypertension. Appears stable at present.continue on antihypetensives 3. History of dyslipidemia. Patient resumed on statin medication 4. PVD. On heparin therapy. Vascular surgeon following. continue with recommendations 5. Normocytic normochromic anemia likely of chronic disease. H&H remained stable at present. Will monitor for now. Disposition plan: No plan for surgical intervention at this time. Will see for assisted facility versus acute rehab. Discussed with vascular surgeon. Continue with wound care for now. Discussed plan of care with Dr. Neal Problems: Subjective 24 Hr Interval Summary Free Text/Dictation comfortable at present. no s/s of distress Exam/Review of Systems Vital Signs Vitals Vital Signs Date Time Temp Pulse Resp B/P Pulse Ox O2 Delivery O2 Flow Rate FiO2 01/04/17 10:27 70 111/57 01/04/17 08:12 97.6 20 99 01/02/17 08:30 Room Air Intake and Output 01/03/17 01/03/17 01/04/17 15:00 23:00 07:00 Intake Total 1490 ml 400 ml Output Total 1000 ml 1600 ml Balance 490 ml -1200 ml Exam Constitutional: alert, oriented Psych: nl mood/affect Neck: No jvd Respiratory: clear to auscultation Cardiovascular: nl pulses, regular rate and rhythm Gastrointestinal: soft Musculoskeletal: No nl gait and stance Neurological: PRODUCT PROMOTER RETAIL PET II-XII intact, nl mental status, nl speech Skin: other (Left lower extremity wound with dressing in place) Results Result Diagram: 01/04/17 0533 01/04/17 0533 Results 24 hrs Laboratory Tests Test 01/04/17 05:33 White Blood Count 5.2 Red Blood Count 3.34 L Hemoglobin 9.6 L Hematocrit 30.0 L Mean Corpuscular Volume 89.8 Mean Corpuscular Hemoglobin 28.7 L Mean Corpuscular Hemoglobin Concent 32.0 Red Cell Distribution Width 13.2 Platelet Count 377 Mean Platelet Volume 9.0 Neutrophils % 62.6 Lymphocytes % 18.1 Monocytes % 15.6 H Eosinophils % 2.5 Basophils % 0.4 Nucleated Red Blood Cells % 0.0 Neutrophils # 3.3 Lymphocytes # 1.0 Monocytes # 0.8 Eosinophils # 0.1 Basophils # 0.0 Nucleated Red Blood Cells # 0.0 Sodium Level 140 Potassium Level 3.9 Chloride Level 102 Carbon Dioxide Level 26 Anion Gap 16 Blood Urea Nitrogen 11 Creatinine 0.72 Glucose Level 97 Calcium Level 8.9 Medications Medications Current Medications Ondansetron HCl (Zofran Inj) 4 mg Q6H PRN IV NAUSEA AND/OR VOMITING Last administered on 01/04/17 12:18; Admin Dose 4 MG; Start 12/26/16 at 18:00 Acetaminophen (Tylenol Tab) 650 mg Q6H PRN PO PAIN LEVEL 1-3 OR FEVER; Start at 18:00 Acetaminophen/ Hydrocodone Bitart ([place] (5/325)) 1 tab Q6H PRN PO MODERATE PAIN LEVEL 4-6 Last administered on 01/04/17 10:30; Admin Dose 1 TAB; Start at 18:00 Magnesium Hydroxide (Milk Of Mag) 30 ml DAILY PRN PO CONSTIPATION Last administered on 01/04/17 12:23; Admin Dose 30 ML; Start 12/26/16 at 18:00 Bisacodyl (Dulcolax) 5 mg DAILY PRN PO CONSTIPATION Last administered on 21:04; Admin Dose 5 MG; Start 12/26/16 at 18:00 Famotidine (Pepcid) 20 mg Q12 PO Last administered on 01/04/17 08:53; Admin Dose 20 MG; Start 12/26/16 at 21:00 Clopidogrel Bisulfate (plaVIX) 75 mg DAILY PO Last administered on 01/04/17 08: 52; Admin Dose 75 MG; Start 12/27/16 at 09:00 Hydrochlorothiazide (Hydrochlorothiazide) 12.5 mg DAILY PO Last administered on 01/04/17 10:25; Admin Dose 12.5 MG; Start 12/27/16 at 09:00 Amlodipine Besylate (Norvasc) 5 mg DAILY PO Last administered on 01/04/17 08:54 ; Admin Dose 5 MG; Start 12/27/16 at 09:00 Atorvastatin Calcium (Lipitor) 10 mg QHS PO Last administered on 01/03/17 20:14 ; Admin Dose 10 MG; Start 12/26/16 at 21:00 Hydralazine HCl (Apresoline) 10 mg Q6H PRN IV SBP>160; Start 12/26/16 at 18:00 Losartan Potassium (Cozaar) 100 mg DAILY PO Last administered on 01/04/17 10:25 ; Admin Dose 100 MG; Start 12/27/16 at 09:00 Nicotine 1 patch 1 patch DAILY TRANSDERM ; Start 12/26/16 at 18:30 Levofloxacin/ Dextrose (Levaquin 500mg/ D5W 100 ml (Pmx)) 100 ml @ 100 mls/hr Q24H IVPB Last administered on 01/04/17 14:32; Admin Dose 100 MLS/HR; Start at 14:00 Guaifenesin/ Dextromethorphan (Robitussin Dm Liquid Cup) 5 ml Q4H PRN PO Cough Last administered on 12/27/16 15:46; Admin Dose 5 ML; Start 12/27/16 at 16:00 Timolol Maleate (Timoptic 0.5%) 1 drop BID BOTH EYES Last administered on 08:57; Admin Dose 1 DROP; Start 12/27/16 at 21:00 Latanoprost (Xalatan) 1 drop QHS BOTH EYES Last administered on 01/03/17 20:14 ; Admin Dose 1 DROP; Start 12/27/16 at 21:30 Cholecalciferol (Vitamin D) 2,000 unit DAILY PO Last administered on 01/04/17 08:52; Admin Dose 2,000 UNIT; Start 12/28/16 at 10:30 Enoxaparin Sodium 30 mg 30 mg DAILY SC Last administered on 01/04/17 09:29; Admin Dose 30 MG; Start 12/28/16 at 11:00 Vancomycin HCl (Vancocin) 100 ml @ 100 mls/hr Q12H IVPB Last administered on 08:06; Admin Dose 100 MLS/HR; Start 12/30/16 at 08:00 Morphine Sulfate 2 mg 2 mg Q4H PRN IV SEVERE PAIN LEVEL 7-10 Last administered on 01/04/17 05:39; Admin Dose 2 MG; Start 12/30/16 at 14:15 Cefepime HCl 50 ml @ 100 mls/hr Q24H IVPB Last administered on 01/03/17 21:52 ; Admin Dose 100 MLS/HR; Start 12/31/16 at 21:00 Caspofungin/ Sodium Chloride (Cancidas/NS) 250 ml @ 250 mls/hr Q24H IVPB Last administered on 01/03/17 16:09; Admin Dose 250 MLS/HR; Start 01/01/17 at 15:30 Collagenase (Santyl) 1 applic DAILY TOP Last administered on 01/04/17 08:58; Admin Dose 1 APPLIC; Start 01/01/17 at 16:30 CATHERINE CORNELIUS Jan 04, 2017 14:55
[2017-01-04 15:57] VITALS: BP 113/54; RESP 20
[2017-01-04] MEDS: CASPOFUNGIN 50 MG in SOD CHLORIDE 0.9% 250 ML IVPB SCH (15:58)
[2017-01-04 19:31] VITALS: BP 129/63; RESP 18
[2017-01-04] MEDS ORDERED: VANCOMYCIN IVPB SCH (20:00)
[2017-01-04] MEDS ORDERED: SOD CHLORIDE 0.9% IVPB SCH (20:00)
[2017-01-04] MEDS: LATANOPROST 0.005% 2.5 ML OPH BOTH EYES SCH (20:48)
[2017-01-04] MEDS: ATORVASTATIN 10 MG TAB PO SCH (20:51)
[2017-01-04] MEDS: CEFEPIME 1GM/50 ML (PMX) 50 ML IVPB SCH (21:34)
[2017-01-05 01:45] VITALS: BP 106/53; RESP 18
[2017-01-05] MEDS: HYDROCODONE/APAP (5/325) TAB PO PRN ×2 (01:56→12:37)
[2017-01-05 05:41] LABS: BASOPHILS % 0.4 % (0.0-2.0); EOSINOPHILS # 0.2 10^3/ul (0.0-0.5); HEMATOCRIT 28.7 % (37.0-47.0); HEMOGLOBIN 9.1 g/dl (12.0-16.0); LYMPHOCYTES # 0.9 10^3/ul (0.8-2.9); LYMPHOCYTES % 16.2 % (15.0-51.0); MEAN CORPUSCULAR HEMOGLOBIN 28.5 pg (29.0-33.0); MEAN CORPUSCULAR HGB CONC 31.7 g/dl (32.0-37.0); MEAN PLATELET VOLUME 8.9 fl (7.4-10.4); MONOCYTE # 0.8 10^3/ul (0.3-0.9); MONOCYTES % 14.3 % (0.0-11.0); NEUTROPHIL # 3.4 10^3/ul (1.6-7.5); NEUTROPHILS % 65.5 % (39.0-77.0); PLATELET COUNT 354 10^3/UL (140-415); RED BLOOD COUNT 3.19 10^6/ul (4.20-5.40); RED CELL DISTRIBUTION WIDTH 13.1 % (11.5-14.5); WHITE BLOOD COUNT 5.3 10^3/ul (4.8-10.8)
[2017-01-05 05:59] LABS: CALCIUM 8.5 mg/dl (8.4-10.2); CREATININE 0.92 mg/dl (0.44-1.00); POTASSIUM 4.3 mmol/L (3.5-5.1)
[2017-01-05 07:26] VITALS: BP 114/58; RESP 20
[2017-01-05] MEDS ORDERED: VANCOMYCIN 750 MG in SOD CHLORIDE 0.9% 150 ML IVPB SCH (08:00)
[2017-01-05] MEDS: TIMOLOL 0.5% 5 ML OPH BOTH EYES SCH ×2 (08:10→21:26)
[2017-01-05] MEDS: CLOPIDOGREL 75 MG TAB PO SCH (08:11)
[2017-01-05] MEDS: AMLODIPINE 5 MG TAB PO SCH (08:11)
[2017-01-05] MEDS: HYDROCHLOROTHIAZIDE 12.5 MG CAP PO SCH (08:11)
[2017-01-05] MEDS: FAMOTIDINE 20 MG TAB PO SCH ×2 (08:11→21:18)
[2017-01-05] MEDS: LOSARTAN 50 MG TAB PO SCH (08:11)
[2017-01-05] MEDS: CHOLECALCIFEROL 2,000 UNIT CAP PO SCH (08:11)
[2017-01-05] MEDS: NICOTINE (7 MG/24 HR) PATCH TRANSDERM SCH (08:12)
[2017-01-05] MEDS: ENOXAPARIN 30 MG/0.3 ML SYG SC SCH (08:48)
[2017-01-05] MEDS: COLLAGENASE 30 GM TUBE TOP SCH (08:48)
[2017-01-05] MEDS: morphine 2 MG INJ IV PRN (10:38)
--- NOTE | 2017-01-05 11:12 | PN ---
Date/Time of Note Date/Time of Note DATE: 01/05/17 TIME: 11:10 Assessment/Plan VTE Prophylaxis VTE Prophylaxis Intervention: LMWH Lines/Catheters IV [facility]from [facility] Saline Lock Assessment/Plan Chief Complaint/Hosp Course Assessment and plan 1. Left lower extremity nonhealing wounds. Patient did fail outpatient treatment. On antibiotics for now. wound care nurse following. Will continue with wound care . No plan for surgical intervention at this time. plan for outpatient follow up at [facility] 2. Essential hypertension. Appears stable at present.continue on antihypetensives 3. History of dyslipidemia. Patient resumed on statin medication 4. PVD. On heparin therapy. Vascular surgeon following. continue with recommendations 5. Normocytic normochromic anemia likely of chronic disease. H&H remained stable at present. Will monitor for now. Disposition plan: continue abx and wound care. patient not accepted to ARU. will see for snf placement Discussed plan of care with Dr. Neal Problems: Subjective 24 Hr Interval Summary Free Text/Dictation no s/s of distress at this time. resting in bed Exam/Review of Systems Vital Signs Vitals Vital Signs Date Time Temp Pulse Resp B/P Pulse Ox O2 Delivery O2 Flow Rate FiO2 01/05/17 07:26 97.6 76 20 114/58 97 01/02/17 08:30 Room Air Intake and Output 01/04/17 01/04/17 01/05/17 15:00 23:00 07:00 Intake Total 100 ml 1620 ml 360 ml Output Total 1200 ml 650 ml Balance 100 ml 420 ml -290 ml Exam Constitutional: alert, oriented. 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4 Nucleated Red Blood Cells % 0.0 Neutrophils # 3.4 Lymphocytes # 0.9 Monocytes # 0.8 Eosinophils # 0.2 Basophils # 0.0 Nucleated Red Blood Cells # 0.0 Sodium Level 140 Potassium Level 4.3 Chloride Level 103 Carbon Dioxide Level 27 Anion Gap 14 Blood Urea Nitrogen 15 Creatinine 0.92 Glucose Level 95 Calcium Level 8.5 Medications Medications Current Medications Ondansetron HCl (Zofran Inj) 4 mg Q6H PRN IV NAUSEA AND/OR VOMITING Last administered on 01/04/17 12:18; Admin Dose 4 MG; Start 12/26/16 at 18:00 Acetaminophen (Tylenol Tab) 650 mg Q6H PRN PO PAIN LEVEL 1-3 OR FEVER; Start at 18:00 Acetaminophen/ Hydrocodone Bitart ([place] (5/325)) 1 tab Q6H PRN PO MODERATE PAIN LEVEL 4-6 Last administered on 01/05/17 01:56; Admin Dose 1 TAB; Start at 18:00 Magnesium Hydroxide (Milk Of Mag) 30 ml DAILY PRN PO CONSTIPATION Last administered on 01/04/17 12:23; Admin Dose 30 ML; Start 12/26/16 at 18:00 Bisacodyl (Dulcolax) 5 mg DAILY PRN PO CONSTIPATION Last administered on 21:04; Admin Dose 5 MG; Start 12/26/16 at 18:00 Famotidine (Pepcid) 20 mg Q12 PO Last administered on 01/05/17 08:11; Admin Dose 20 MG; Start 12/26/16 at 21:00 Clopidogrel Bisulfate (plaVIX) 75 mg DAILY PO Last administered on 01/05/17 08: 11; Admin Dose 75 MG; Start 12/27/16 at 09:00 Hydrochlorothiazide (Hydrochlorothiazide) 12.5 mg DAILY PO Last administered on 01/05/17 08:11; Admin Dose 12.5 MG; Start 12/27/16 at 09:00 Amlodipine Besylate (Norvasc) 5 mg DAILY PO Last administered on 01/05/17 08:11 ; Admin Dose 5 MG; Start 12/27/16 at 09:00 Atorvastatin Calcium (Lipitor) 10 mg QHS PO Last administered on 01/04/17 20:51 ; Admin Dose 10 MG; Start 12/26/16 at 21:00 Hydralazine HCl (Apresoline) 10 mg Q6H PRN IV SBP>160; Start 12/26/16 at 18:00 Losartan Potassium (Cozaar) 100 mg DAILY PO Last administered on 01/05/17 08:11 ; Admin Dose 100 MG; Start 12/27/16 at 09:00 Nicotine 1 patch 1 patch DAILY TRANSDERM ; Start 12/26/16 at 18:30 Levofloxacin/ Dextrose (Levaquin 500mg/ D5W 100 ml (Pmx)) 100 ml @ 100 mls/hr Q24H IVPB Last administered on 01/04/17 14:32; Admin Dose 100 MLS/HR; Start at 14:00 Guaifenesin/ Dextromethorphan (Robitussin Dm Liquid Cup) 5 ml Q4H PRN PO Cough Last administered on 12/27/16 15:46; Admin Dose 5 ML; Start 12/27/16 at 16:00 Timolol Maleate (Timoptic 0.5%) 1 drop BID BOTH EYES Last administered on 08:10; Admin Dose 1 DROP; Start 12/27/16 at 21:00 Latanoprost (Xalatan) 1 drop QHS BOTH EYES Last administered on 01/04/17 20:48 ; Admin Dose 1 DROP; Start 12/27/16 at 21:30 Cholecalciferol (Vitamin D) 2,000 unit DAILY PO Last administered on 01/05/17 08:11; Admin Dose 2,000 UNIT; Start 12/28/16 at 10:30 Enoxaparin Sodium 30 mg 30 mg DAILY SC Last administered on 01/05/17 08:48; Admin Dose 30 MG; Start 12/28/16 at 11:00 Cefepime HCl 50 ml @ 100 mls/hr Q24H IVPB Last administered on 01/04/17 21:34 ; Admin Dose 100 MLS/HR; Start 12/31/16 at 21:00 Caspofungin/ Sodium Chloride (Cancidas/NS) 250 ml @ 250 mls/hr Q24H IVPB Last administered on 01/04/17 15:58; Admin Dose 250 MLS/HR; Start 01/01/17 at 15:30 Collagenase 1 applic 1 applic DAILY TOP Last administered on 01/05/17 08:48; Admin Dose 1 APPLIC; Start 01/01/17 at 16:30 Vancomycin HCl/ Sodium Chloride (Vancocin/NS) 150 ml @ 75 mls/hr Q12H IVPB Last administered on 01/05/17 08:10; Admin Dose 75 MLS/HR; Start 01/05/17 at 08: 00 Morphine Sulfate (morphine) 2 mg Q4H PRN IV SEVERE PAIN LEVEL 7-10 Last administered on 01/05/17 10:38; Admin Dose 2 MG; Start 01/05/17 at 10:30 CATHERINE CORNELIUS Jan 05, 2017 11:12
[2017-01-05 14:09] VITALS: BP 91/55; RESP 20
[2017-01-05] MEDS: LEVOFLOXACIN 500MG/D5W (PMX) 100 ML IVPB SCH (14:57)
[2017-01-05] MEDS: CASPOFUNGIN 50 MG in SOD CHLORIDE 0.9% 250 ML IVPB SCH (16:42)
[2017-01-05 19:25] VITALS: BP 104/57; RESP 19
--- NOTE | 2017-01-05 19:55 | CONS ---
Date/Time of Note Date/Time of Note DATE: 01/05/17 TIME: 19:44 Assessment/Plan Assessment/Plan Chief Complaint/Hosp Course ID PROGRESS NOTE CURRENT ABX: DAY #11 => Vanco IV + Levaquin + Cefepime #4 + Cancidas #3 s/p Azactam -> DC'd 01/01 24H SUMMARY * Clinically stable; appreciate wound nurse telephone contact today -- in order to proceed to Whirlpool debride will need BLEXT Venous study to r/o DVT; I believe this was done recently prior facility. Additionally, PTx/wound care would need order for antiseptic whirlpool agent and Silvadene topical for post whirlpool. * Lethargic, awakens, generalized debility/weakness/frail 76 yo FVSS, no fevers , no new issues, no complaints offered * MICRO BELOW: Wounds (+): CoNS, Coryne "JK", PSAR, RLEXT Wound WOUND CULTURE Final Organism 1 COAGULASE NEGATIVE STAPH QUANTITY SCANT GROWTH Organism 2 CORYNEBACTER JEIKEIUM (GRP JK) QUANTITY SCANT GROWTH `````````````````````````````````````````````````````````` Repeat LLEXT wound cx WOUND CULTURE Final Organism 1 PSEUDOMONAS AERUGINOSA QUANTITY 2+ P.AERUG M.I.C. RX --------- --- AMIKACIN <=2 S AZTREONAM I CEFEPIME <=1 S CEFTAZIDIME 2 S CIPROFLOXACIN <=0.25 S GENTAMICIN <=1 S IMIPENEM >=16 R LEVOFLOXACIN 0.25 S TOBRAMYCIN <=1 S PIPERACILLIN/TAZOBACTAM <=4 S * MICRO 12/19/16 WOUND CULTURE Final Organism 1 PSEUDOMONAS AERUGINOSA QUANTITY 1+ P.AERUG M.I.C. RX --------- --- AMIKACIN <=2 S AZTREONAM S CEFEPIME 2 S CEFTAZIDIME 2 S CIPROFLOXACIN <=0.25 S GENTAMICIN <=1 S IMIPENEM >=16 R LEVOFLOXACIN 0.25 S TOBRAMYCIN <=1 S PIPERACILLIN/TAZOBACTAM 8 S 11/14/16 WOUND CULTURE Final Organism 1 PSEUDOMONAS AERUGINOSA QUANTITY 1+ Organism 2 CORYNEBACTER JEIKEIUM (GRP JK) QUANTITY 4+ Organism 3 ACINETOBACTER BAUMANNII QUANTITY 1+ Organism 4 ALPHA HEMOLYTIC STREP SPP QUANTITY SCANT GROWTH . VIRIDANS GROUP GENERAL: She is an elderly -[place] woman, VSS, NAD HEENT: Unremarkable NECK: Supple, full ROM CHEST: Equal chest rise bilaterally, without dyspnea on observation CV: Radial pulse RRR ABDOMEN: Soft, nontender, nondistended. LOWER EXTREMITIES: 2+ DP pulses/LLEXT DSG C/D/I. ID ASSESSMENT 76 yo F admit with: 1. SIRS w/low grade temps 99.+ range, lethargy/fatigue 2. 12/29/16 (+)Yeast UTI URINE CULTURE Final Organism 1 ALVARO GLABRATA COLONY COUNT >100,000 CFU/ml 3. Left lower extremity nonhealing wounds. Failed outpatient treatment. * Followed by podiatry and vascular surgery=> Per Dr. Rashid note plan is for eventual debrided once abx onboard 4. Peripheral Vascular Disease = Mixed venous insufficiency + arterial disease * Hx of bilateral lower extremity arterial bypass surgery early 2016 @ [facility] s w/patent bypass grafts * Continued on antiplatelet therapy 4. Essential hypertension. 5. GERD 6. Dyslipidemia = on statins. 7. Tobaccoism -> 1-cig per day ? nicotine patch 8. ?Psych? => Noncompliance with medical tx despite severity of condition 9. Cachexia; frailty, general debility 2/2 chronic illness/chronic co-morbid conditions 10. Glaucoma -> Timolol eye gtts (-)MRSA Denisha CURRENT ABX: DAY #11 => Vanco IV + Levaquin + Cefepime #4 + Cancidas #3 s/p Azactam -> DC'd 01/01 ID RECOMMENDATIONS 1. Patient declined transfer to [facility]-- she prefers to go home with home health. 2. TONIGHT: DC Vanco IV -- change to Doxycycline 100mg po Q12H x 21 days 3. Change Levaquin IV to Levaquin 500mg PO x 21 days 4. Continue Cepepime + Cancidas while on inpatient status -- DC both upon DC home to follow up 5 HOME HEALTH DC ABX RECS: October Discharge on: * Levaquin 500 mg PO x 3 weeks * Doxycycline 100 mg Q12 Hours PO x 3 weeks. . . Problems: Consultation Date/Type/Reason Admit Date/Time Dec 26, 2016 at 14:43 Type of Consultation: ID Exam/Review of Systems Vital Signs Vitals Vital Signs Date Time Temp Pulse Resp B/P Pulse Ox O2 Delivery O2 Flow Rate FiO2 01/05/17 19:25 99.1 85 19 104/57 98 01/02/17 08:30 Room Air Intake and Output 01/04/17 01/04/17 01/05/17 15:00 23:00 07:00 Intake Total 100 ml 1620 ml 360 ml Output Total 1200 ml 650 ml Balance 100 ml 420 ml -290 ml Results Result Diagram: 01/05/17 0505 01/05/17 0505 Results 24 hrs Laboratory Tests Test 01/05/17 05:05 White Blood Count 5.3 Red Blood Count 3.19 L Hemoglobin 9.1 L Hematocrit 28.7 L Mean Corpuscular Volume 90.0 Mean Corpuscular Hemoglobin 28.5 L Mean Corpuscular Hemoglobin Concent 31.7 L Red Cell Distribution Width 13.1 Platelet Count 354 Mean Platelet Volume 8.9 Neutrophils % 65.5 Lymphocytes % 16.2 Monocytes % 14.3 H Eosinophils % 3.0 Basophils % 0.4 Nucleated Red Blood Cells % 0.0 Neutrophils # 3.4 Lymphocytes # 0.9 Monocytes # 0.8 Eosinophils # 0.2 Basophils # 0.0 Nucleated Red Blood Cells # 0.0 Sodium Level 140 Potassium Level 4.3 Chloride Level 103 Carbon Dioxide Level 27 Anion Gap 14 Blood Urea Nitrogen 15 Creatinine 0.92 Glucose Level 95 Calcium Level 8.5 Medications Medications Current Medications Ondansetron HCl (Zofran Inj) 4 mg Q6H PRN IV NAUSEA AND/OR VOMITING Last administered on 01/04/17 12:18; Admin Dose 4 MG; Start 12/26/16 at 18:00 Acetaminophen (Tylenol Tab) 650 mg Q6H PRN PO PAIN LEVEL 1-3 OR FEVER; Start at 18:00 Acetaminophen/ Hydrocodone Bitart ([place] (5/325)) 1 tab Q6H PRN PO MODERATE PAIN LEVEL 4-6 Last administered on 01/05/17 12:37; Admin Dose 1 TAB; Start at 18:00 Magnesium Hydroxide (Milk Of Mag) 30 ml DAILY PRN PO CONSTIPATION Last administered on 01/04/17 12:23; Admin Dose 30 ML; Start 12/26/16 at 18:00 Bisacodyl (Dulcolax) 5 mg DAILY PRN PO CONSTIPATION Last administered on 21:04; Admin Dose 5 MG; Start 12/26/16 at 18:00 Famotidine (Pepcid) 20 mg Q12 PO Last administered on 01/05/17 08:11; Admin Dose 20 MG; Start 12/26/16 at 21:00 Clopidogrel Bisulfate (plaVIX) 75 mg DAILY PO Last administered on 01/05/17 08: 11; Admin Dose 75 MG; Start 12/27/16 at 09:00 Hydrochlorothiazide (Hydrochlorothiazide) 12.5 mg DAILY PO Last administered on 01/05/17 08:11; Admin Dose 12.5 MG; Start 12/27/16 at 09:00 Amlodipine Besylate (Norvasc) 5 mg DAILY PO Last administered on 01/05/17 08:11 ; Admin Dose 5 MG; Start 12/27/16 at 09:00 Atorvastatin Calcium (Lipitor) 10 mg QHS PO Last administered on 01/04/17 20:51 ; Admin Dose 10 MG; Start 12/26/16 at 21:00 Hydralazine HCl (Apresoline) 10 mg Q6H PRN IV SBP>160; Start 12/26/16 at 18:00 Losartan Potassium (Cozaar) 100 mg DAILY PO Last administered on 01/05/17 08:11 ; Admin Dose 100 MG; Start 12/27/16 at 09:00 Nicotine 1 patch 1 patch DAILY TRANSDERM ; Start 12/26/16 at 18:30 Levofloxacin/ Dextrose (Levaquin 500mg/ D5W 100 ml (Pmx)) 100 ml @ 100 mls/hr Q24H IVPB Last administered on 01/05/17 14:57; Admin Dose 100 MLS/HR; Start at 14:00 Guaifenesin/ Dextromethorphan (Robitussin Dm Liquid Cup) 5 ml Q4H PRN PO Cough Last administered on 12/27/16 15:46; Admin Dose 5 ML; Start 12/27/16 at 16:00 Timolol Maleate (Timoptic 0.5%) 1 drop BID BOTH EYES Last administered on 08:10; Admin Dose 1 DROP; Start 12/27/16 at 21:00 Latanoprost (Xalatan) 1 drop QHS BOTH EYES Last administered on 01/04/17 20:48 ; Admin Dose 1 DROP; Start 12/27/16 at 21:30 Cholecalciferol (Vitamin D) 2,000 unit DAILY PO Last administered on 01/05/17 08:11; Admin Dose 2,000 UNIT; Start 12/28/16 at 10:30 Enoxaparin Sodium 30 mg 30 mg DAILY SC Last administered on 01/05/17 08:48; Admin Dose 30 MG; Start 12/28/16 at 11:00 Cefepime HCl 50 ml @ 100 mls/hr Q24H IVPB Last administered on 01/04/17 21:34 ; Admin Dose 100 MLS/HR; Start 12/31/16 at 21:00 Caspofungin/ Sodium Chloride (Cancidas/NS) 250 ml @ 250 mls/hr Q24H IVPB Last administered on 01/05/17 16:42; Admin Dose 250 MLS/HR; Start 01/01/17 at 15:30 Collagenase 1 applic 1 applic DAILY TOP Last administered on 01/05/17 08:48; Admin Dose 1 APPLIC; Start 01/01/17 at 16:30 Vancomycin HCl/ Sodium Chloride (Vancocin/NS) 150 ml @ 75 mls/hr Q12H IVPB Last administered on 01/05/17 08:10; Admin Dose 75 MLS/HR; Start 01/05/17 at 08: 00 Morphine Sulfate (morphine) 2 mg Q4H PRN IV SEVERE PAIN LEVEL 7-10 Last administered on 01/05/17 10:38; Admin Dose 2 MG; Start 01/05/17 at 10:30 NIELS KNAPP NP Jan 05, 2017 19:55
[2017-01-05] MEDS: ATORVASTATIN 10 MG TAB PO SCH (21:18)
[2017-01-05] MEDS: CEFEPIME 1GM/50 ML (PMX) 50 ML IVPB SCH (21:19)
[2017-01-05] MEDS: LATANOPROST 0.005% 2.5 ML OPH BOTH EYES SCH (21:26)
[2017-01-05] MEDS: DOXYCYCLINE 100 MG TAB PO SCH (21:29)
[2017-01-06] MEDS: HYDROCODONE/APAP (5/325) TAB PO PRN ×4 (00:08→23:55)
[2017-01-06 02:00] VITALS: BP 114/54; RESP 18
[2017-01-06 05:37] LABS: BASOPHILS % 0.2 % (0.0-2.0); EOSINOPHILS # 0.2 10^3/ul (0.0-0.5); EOSINOPHILS % 4.3 % (0.0-7.0); HEMATOCRIT 29.9 % (37.0-47.0); HEMOGLOBIN 9.6 g/dl (12.0-16.0); LYMPHOCYTES % 20.3 % (15.0-51.0); MEAN CORPUSCULAR HEMOGLOBIN 29.1 pg (29.0-33.0); MEAN CORPUSCULAR HGB CONC 32.1 g/dl (32.0-37.0); MEAN CORPUSCULAR VOLUME 90.6 fl (82.0-101.0); MEAN PLATELET VOLUME 9.1 fl (7.4-10.4); MONOCYTE # 0.6 10^3/ul (0.3-0.9); MONOCYTES % 12.9 % (0.0-11.0); NEUTROPHILS % 61.9 % (39.0-77.0); PLATELET COUNT 379 10^3/UL (140-415); WHITE BLOOD COUNT 4.9 10^3/ul (4.8-10.8)
[2017-01-06 06:17] LABS: CALCIUM 8.7 mg/dl (8.4-10.2); CREATININE 0.84 mg/dl (0.44-1.00); POTASSIUM 3.9 mmol/L (3.5-5.1)
[2017-01-06] MEDS: LEVOFLOXACIN 500 MG TAB PO SCH (06:42)
[2017-01-06 07:45] VITALS: BP 126/64; RESP 18
[2017-01-06] MEDS: HYDROCHLOROTHIAZIDE 12.5 MG CAP PO SCH (08:41)
[2017-01-06] MEDS: DOXYCYCLINE 100 MG TAB PO SCH ×2 (08:41→20:50)
[2017-01-06] MEDS: FAMOTIDINE 20 MG TAB PO SCH ×2 (08:41→20:50)
[2017-01-06] MEDS: CHOLECALCIFEROL 2,000 UNIT CAP PO SCH (08:41)
[2017-01-06] MEDS: AMLODIPINE 5 MG TAB PO SCH (08:41)
[2017-01-06] MEDS: CLOPIDOGREL 75 MG TAB PO SCH (08:41)
[2017-01-06] MEDS: LOSARTAN 50 MG TAB PO SCH (08:41)
[2017-01-06] MEDS: NICOTINE (7 MG/24 HR) PATCH TRANSDERM SCH (09:00)
--- NOTE | 2017-01-06 09:01 | PDOCDIS ---
Discharge Instructions DIAGNOSIS Discharge Diagnosis 1. Left lower extremity nonhealing wounds 2. Essential hypertension 3. Dyslipidemia 4. History of PVD 5. Normocytic normochromic anemia CONDITION Patient Condition: Stable HOME CARE INSTRUCTIONS: Special Diet: REGULAR DIET FOLLOW UP/APPOINTMENTS Follow-up Plan 1. Follow-up with [facility] prevention center ([facility]) within 1 week. 2. Follow-up with Dr. Ayala in one week 3. Follow up with Dr. Jimi Azul in one week CATHERINE CORNELIUS Jan 06, 2017 09:01
[2017-01-06] MEDS: ENOXAPARIN 30 MG/0.3 ML SYG SC SCH (09:21)
[2017-01-06] MEDS: TIMOLOL 0.5% 5 ML OPH BOTH EYES SCH ×2 (09:23→20:49)
[2017-01-06] MEDS: COLLAGENASE 30 GM TUBE TOP SCH (09:23)
[2017-01-06] MEDS: morphine 2 MG INJ IV PRN (12:55)
--- NOTE | 2017-01-06 13:19 | DS ---
Date/Time of Note Date/Time of Note DATE: 01/06/17 TIME: 13:14 Discharge Summary Admission/Discharge Info Admit Date/Time Dec 26, 2016 at 14:43 Discharge Date/Time Discharge Diagnosis 1. Left lower extremity nonhealing wounds 2. Essential hypertension 3. Dyslipidemia 4. History of PVD 5. Normocytic normochromic anemia Patient Condition: Stable Consults 1. Dr. Jose Llanes 2. Dr. Jimi Azul 3. Dr. Dmitri Ayala Hospital Course This is a 76-year-old female with history of peripheral vascular disease, hypertension, dyslipidemia, who is followed at am[facility] prevention [facility] at [facility] for left lower extremity nonhealing ulcer who was brought in by [facility] by her cake icer and packer Dr. Ayala and recommended for admission due to nonhealing left lower extremely also. Patient was also seen by vascular surgeon Dr. Azul while in-house for her history of severe peripheral vascular disease. Patient was seen by infectious disease physician as well. Patient did have culture showing pseudomonas aeruginosa for which she was placed on appropriate antibiotics. Additionally she was seen by wound care nurse. Area was noted to be necrotic. It was also noted that patient during stay he did have necrotic portion of nonhealing wound removed when dressing was also removed. It was reviewed by cake icer and packer did recommend wound care. Patient was also seen by vascular surgeon after review reported no further vascular surgeon surgical intervention at this time but for further monitoring as outpatient. During the course of stay she did improve. She did respond well to antibiotics and wound care. We did set the patient up for outpatient follow- up with home services. During the course of stay she did improve. She is otherwise optimized medically. She was continued on antihypertensives for hypertension and statin for dyspnea and we did continue with vascular surgeon recommendations for her peripheral vascular disease. As previously mentioned during her course of stay she did improve. The plan of care was discussed with the patient and patient did verbalize her understanding. On the day of discharge patient was in stable condition Discussed plan of care with Dr. Neal [facility] Active Scripts Doxycycline Monohydrate* (Doxycycline Monohydrate*) 100 Mg Tablet, 100 MG PO BID for 21 Days, TAB Prov:CATHERINE CORNELIUS 01/04/17 Levofloxacin* (Levofloxacin*) 500 Mg Tablet, 500 MG PO DAILY for 21 Days, TAB Prov:CATHERINE CORNELIUS 01/04/17 Docusate Sodium* (Colace*) 100 Mg Capsule, 100 MG PO Q24H Y for CONSTIPATION, # 30 CAP Prov:CATHERINE CORNELIUS 01/04/17 Collagenase* (Santyl*) 30 Gm Oint..gm., 1 APPLIC TOP DAILY for 30 Days Prov:CATHERINE CORNELIUS 01/04/17 Reported Medications Travoprost* (Travatan Z*) 2.5 Ml Drops, 1 DROP BOTH EYES HS, #1 BOTTLE 12/26/16 Timolol Maleate* (Timoptic*) 0.5%-5ml Opht, 1 DROP BOTH EYES BID, #1 EA 12/26/16 Aspirin* (Aspirin* EC) 81 Mg Tablet.dr, 81 MG PO DAILY, TAB 12/26/16 Cilostazol* (Cilostazol*) 100 Mg Tablet, 50 MG PO BID, TAB 12/26/16 Clopidogrel Bisulfate (Clopidogrel) 75 Mg Tablet, 75 MG PO DAILY, #30 TAB 10/03/16 Hydrochlorothiazide* (Hydrochlorothiazide*) 12.5 Mg Tablet, 12.5 MG PO DAILY, # 30 TAB 10/03/16 Simvastatin* (Zocor*) 20 Mg Tablet, 20 MG PO QHS, #30 TAB 10/03/16 Amlodipine Bes/Olmesartan Med (Javier 5-40 mg Tablet) 1 Each Tablet, 1 EACH PO DAILY, TAB 10/03/16 Follow-up Plan CONDITION Patient Condition: Stable HOME CARE INSTRUCTIONS: Special Diet: REGULAR DIET FOLLOW UP/APPOINTMENTS Follow-up Plan 1. Follow-up with am[facility] prevention center ([facility]) within 1 week. 2. Follow-up with Dr. Ayala in one week 3. Follow up with Dr. Jimi Azul in one week Primary Care Provider Mendoza Abdul Time spent on discharge: > 30 minutes Pending Labs Laboratory Tests Test 01/06/17 04:42 White Blood Count 4.910^3/ul (4.8-10.8) Red Blood Count 3.3010^6/ul (4.20-5.40) Hemoglobin 9.6g/dl (12.0-16.0) Hematocrit 29.9% (37.0-47.0) Mean Corpuscular Volume 90.6fl (82.0-101.0) Mean Corpuscular Hemoglobin 29.1pg (29.0-33.0) Mean Corpuscular Hemoglobin Concent 32.1g/dl (32.0-37.0) Red Cell Distribution Width 13.0% (11.5-14.5) Platelet Count 43682^3/UL (140-415) Mean Platelet Volume 9.1fl (7.4-10.4) Neutrophils % 61.9% (39.0-77.0) Lymphocytes % 20.3% (15.0-51.0) Monocytes % 12.9% (0.0-11.0) Eosinophils % 4.3% (0.0-7.0) Basophils % 0.2% (0.0-2.0) Nucleated Red Blood Cells % 0.0/100WBC (0.0-0.0) Neutrophils # 3.010^3/ul (1.6-7.5) Lymphocytes # 1.010^3/ul (0.8-2.9) Monocytes # 0.610^3/ul (0.3-0.9) Eosinophils # 0.210^3/ul (0.0-0.5) Basophils # 0.010^3/ul (0.0-0.1) Nucleated Red Blood Cells # 0.010^3/ul (0.0-0.0) Sodium Level 141mmol/L (135-144) Potassium Level 3.9mmol/L (3.5-5.1) Chloride Level 103mmol/L (97-110) Carbon Dioxide Level 28mmol/L (21-31) Anion Gap 14 (8-16) Blood Urea Nitrogen 12mg/dl (7-20) Creatinine 0.84mg/dl (0.44-1.00) Glucose Level 87mg/dl (70-220) Calcium Level 8.7mg/dl (8.4-10.2) CATHERINE CORNELIUS Jan 06, 2017 13:19
[2017-01-06 14:00] VITALS: BP 104/60; RESP 20
--- NOTE | 2017-01-06 15:43 | CONS ---
Date/Time of Note Date/Time of Note DATE: 01/06/17 TIME: 15:39 Assessment/Plan Assessment/Plan Chief Complaint/Hosp Course ID PROGRESS NOTE CURRENT ABX: DAY #12 => Levaquin + Cefepime #5 + Cancidas #4 Vanco IV -> DC 01/05 s/p Azactam -> DC'd 01/01 24H SUMMARY * She is sitting up in bed eating lunch -- she is enthusiastic about the change of ABX to PO, she is confident that is better for her, reports she gets good care at home with a nurse who comes and cares for her wounds. She is tolerating Doxy + Levaquin PO * MICRO BELOW: Wounds (+): CoNS, Coryne "JK", PSAR, RLEXT Wound WOUND CULTURE Final Organism 1 COAGULASE NEGATIVE STAPH QUANTITY SCANT GROWTH Organism 2 CORYNEBACTER JEIKEIUM (GRP JK) QUANTITY SCANT GROWTH `````````````````````````````````````````````````````````` Repeat LLEXT wound cx WOUND CULTURE Final Organism 1 PSEUDOMONAS AERUGINOSA QUANTITY 2+ P.AERUG M.I.C. RX --------- --- AMIKACIN <=2 S AZTREONAM I CEFEPIME <=1 S CEFTAZIDIME 2 S CIPROFLOXACIN <=0.25 S GENTAMICIN <=1 S IMIPENEM >=16 R LEVOFLOXACIN 0.25 S TOBRAMYCIN <=1 S PIPERACILLIN/TAZOBACTAM <=4 S * MICRO 12/19/16 WOUND CULTURE Final Organism 1 PSEUDOMONAS AERUGINOSA QUANTITY 1+ P.AERUG M.I.C. RX --------- --- AMIKACIN <=2 S AZTREONAM S CEFEPIME 2 S CEFTAZIDIME 2 S CIPROFLOXACIN <=0.25 S GENTAMICIN <=1 S IMIPENEM >=16 R LEVOFLOXACIN 0.25 S TOBRAMYCIN <=1 S PIPERACILLIN/TAZOBACTAM 8 S 11/14/16 WOUND CULTURE Final Organism 1 PSEUDOMONAS AERUGINOSA QUANTITY 1+ Organism 2 CORYNEBACTER JEIKEIUM (GRP JK) QUANTITY 4+ Organism 3 ACINETOBACTER BAUMANNII QUANTITY 1+ Organism 4 ALPHA HEMOLYTIC STREP SPP QUANTITY SCANT GROWTH . VIRIDANS GROUP GENERAL: She is an elderly -[place] woman, VSS, NAD HEENT: Unremarkable NECK: Supple, full ROM CHEST: Equal chest rise bilaterally, without dyspnea on observation CV: Radial pulse RRR ABDOMEN: Soft, nontender, nondistended. LOWER EXTREMITIES: 2+ DP pulses/LLEXT DSG C/D/I. ID ASSESSMENT 76 yo F admit with: 1. SIRS w/low grade temps 99.+ range, lethargy/fatigue 2. 12/29/16 (+)Yeast UTI URINE CULTURE Final Organism 1 ALVARO GLABRATA COLONY COUNT >100,000 CFU/ml 3. Left lower extremity nonhealing wounds. Failed outpatient treatment. * Followed by podiatry and vascular surgery=> Per Dr. Rashid note plan is for eventual debrided once abx onboard 4. Peripheral Vascular Disease = Mixed venous insufficiency + arterial disease * Hx of bilateral lower extremity arterial bypass surgery early 2016 @ [facility] w/patent bypass grafts * Continued on antiplatelet therapy 4. Essential hypertension. 5. GERD 6. Dyslipidemia = on statins. 7. Tobaccoism -> 1-cig per day ? nicotine patch 8. ?Psych? => Noncompliance with medical tx despite severity of condition 9. Cachexia; frailty, general debility 2/2 chronic illness/chronic co-morbid conditions 10. Glaucoma -> Timolol eye gtts (-)MRSA Nares CURRENT ABX: DAY #11 => Vanco IV + Levaquin + Cefepime #4 + Cancidas #3 s/p Azactam -> DC'd 01/01 ID RECOMMENDATIONS 1. She is enthusiastic about the change of ABX to PO, she is confident that is better for her: * She reports she gets good care at home with a nurse who comes and cares for her wounds. * She is tolerating Doxy + Levaquin PO 4. Continue Cepepime + Cancidas while on inpatient status -- DC both upon DC home to follow up 5 HOME HEALTH DC ABX RECS: October Discharge on: * Levaquin 500 mg PO x 3 weeks * Doxycycline 100 mg Q12 Hours PO x 3 weeks. . . Problems: Consultation Date/Type/Reason Admit Date/Time Dec 26, 2016 at 14:43 Type of Consultation: ID Exam/Review of Systems Vital Signs Vitals Vital Signs Date Time Temp Pulse Resp B/P Pulse Ox O2 Delivery O2 Flow Rate FiO2 01/06/17 14:00 98.4 70 20 104/60 97 01/02/17 08:30 Room Air Intake and Output 01/05/17 01/05/17 01/06/17 15:00 23:00 07:00 Intake Total 150 ml 1780 ml 300 ml Output Total 2250 ml Balance 150 ml -470 ml 300 ml Results Result Diagram: 01/06/17 0442 01/06/17 0442 Results 24 hrs Laboratory Tests Test 01/06/17 04:42 White Blood Count 4.9 Red Blood Count 3.30 L Hemoglobin 9.6 L Hematocrit 29.9 L Mean Corpuscular Volume 90.6 Mean Corpuscular Hemoglobin 29.1 Mean Corpuscular Hemoglobin Concent 32.1 Red Cell Distribution Width 13.0 Platelet Count 379 Mean Platelet Volume 9.1 Neutrophils % 61.9 Lymphocytes % 20.3 Monocytes % 12.9 H Eosinophils % 4.3 Basophils % 0.2 Nucleated Red Blood Cells % 0.0 Neutrophils # 3.0 Lymphocytes # 1.0 Monocytes # 0.6 Eosinophils # 0.2 Basophils # 0.0 Nucleated Red Blood Cells # 0.0 Sodium Level 141 Potassium Level 3.9 Chloride Level 103 Carbon Dioxide Level 28 Anion Gap 14 Blood Urea Nitrogen 12 Creatinine 0.84 Glucose Level 87 Calcium Level 8.7 Medications Medications Current Medications Ondansetron HCl (Zofran Inj) 4 mg Q6H PRN IV NAUSEA AND/OR VOMITING Last administered on 01/04/17 12:18; Admin Dose 4 MG; Start 12/26/16 at 18:00 Acetaminophen (Tylenol Tab) 650 mg Q6H PRN PO PAIN LEVEL 1-3 OR FEVER; Start at 18:00 Acetaminophen/ Hydrocodone Bitart ([place] (5/325)) 1 tab Q6H PRN PO MODERATE PAIN LEVEL 4-6 Last administered on 01/06/17 10:56; Admin Dose 1 TAB; Start at 18:00 Magnesium Hydroxide (Milk Of Mag) 30 ml DAILY PRN PO CONSTIPATION Last administered on 01/04/17 12:23; Admin Dose 30 ML; Start 12/26/16 at 18:00 Bisacodyl (Dulcolax) 5 mg DAILY PRN PO CONSTIPATION Last administered on 21:04; Admin Dose 5 MG; Start 12/26/16 at 18:00 Famotidine (Pepcid) 20 mg Q12 PO Last administered on 01/06/17 08:41; Admin Dose 20 MG; Start 12/26/16 at 21:00 Clopidogrel Bisulfate (plaVIX) 75 mg DAILY PO Last administered on 01/06/17 08: 41; Admin Dose 75 MG; Start 12/27/16 at 09:00 Hydrochlorothiazide (Hydrochlorothiazide) 12.5 mg DAILY PO Last administered on 01/06/17 08:41; Admin Dose 12.5 MG; Start 12/27/16 at 09:00 Amlodipine Besylate (Norvasc) 5 mg DAILY PO Last administered on 01/06/17 08:41 ; Admin Dose 5 MG; Start 12/27/16 at 09:00 Atorvastatin Calcium (Lipitor) 10 mg QHS PO Last administered on 01/05/17 21:18 ; Admin Dose 10 MG; Start 12/26/16 at 21:00 Hydralazine HCl (Apresoline) 10 mg Q6H PRN IV SBP>160; Start 12/26/16 at 18:00 Losartan Potassium (Cozaar) 100 mg DAILY PO Last administered on 01/06/17 08:41 ; Admin Dose 100 MG; Start 12/27/16 at 09:00 Nicotine (Nicoderm 7 Mg/ 24 Hr) 1 patch DAILY TRANSDERM ; Start 12/26/16 at 18: 30 Guaifenesin/ Dextromethorphan (Robitussin Dm Liquid Cup) 5 ml Q4H PRN PO Cough Last administered on 12/27/16 15:46; Admin Dose 5 ML; Start 12/27/16 at 16:00 Timolol Maleate (Timoptic 0.5%) 1 drop BID BOTH EYES Last administered on 09:23; Admin Dose 1 DROP; Start 12/27/16 at 21:00 Latanoprost (Xalatan) 1 drop QHS BOTH EYES Last administered on 01/05/17 21:26 ; Admin Dose 1 DROP; Start 12/27/16 at 21:30 Cholecalciferol (Vitamin D) 2,000 unit DAILY PO Last administered on 01/06/17 08:41; Admin Dose 2,000 UNIT; Start 12/28/16 at 10:30 Enoxaparin Sodium 30 mg 30 mg DAILY SC Last administered on 01/06/17 09:21; Admin Dose 30 MG; Start 12/28/16 at 11:00 Cefepime HCl 50 ml @ 100 mls/hr Q24H IVPB Last administered on 01/05/17 21:19 ; Admin Dose 100 MLS/HR; Start 12/31/16 at 21:00 Caspofungin/ Sodium Chloride (Cancidas/NS) 250 ml @ 250 mls/hr Q24H IVPB Last administered on 01/05/17 16:42; Admin Dose 250 MLS/HR; Start 01/01/17 at 15:30 Collagenase (Santyl) 1 applic DAILY TOP Last administered on 01/06/17 09:23; Admin Dose 1 APPLIC; Start 01/01/17 at 16:30 Morphine Sulfate (morphine) 2 mg Q4H PRN IV SEVERE PAIN LEVEL 7-10 Last administered on 01/06/17 12:55; Admin Dose 2 MG; Start 01/05/17 at 10:30 Doxycycline Hyclate (Vibramycin) 100 mg BID PO Last administered on 01/06/17 08 :41; Admin Dose 100 MG; Start 01/05/17 at 21:00 Levofloxacin (Levaquin) 500 mg DAILY@06 PO Last administered on 01/06/17 06:42 ; Admin Dose 500 MG; Start 01/06/17 at 06:00; Stop 01/27/17 at 21:00 NIELS KNAPP NP Jan 06, 2017 15:43
[2017-01-06] MEDS: CASPOFUNGIN 50 MG in SOD CHLORIDE 0.9% 250 ML IVPB SCH (16:35)
[2017-01-06 19:17] VITALS: BP 135/60; RESP 18
[2017-01-06] MEDS: LATANOPROST 0.005% 2.5 ML OPH BOTH EYES SCH (20:48)
[2017-01-06] MEDS: CEFEPIME 1GM/50 ML (PMX) 50 ML IVPB SCH (20:50)
[2017-01-06] MEDS: ATORVASTATIN 10 MG TAB PO SCH (20:50)
[2017-01-07 02:00] VITALS: BP 103/51; RESP 18
[2017-01-07 05:20] LABS: BASOPHILS % 0.4 % (0.0-2.0); EOSINOPHILS # 0.2 10^3/ul (0.0-0.5); EOSINOPHILS % 3.7 % (0.0-7.0); HEMATOCRIT 29.9 % (37.0-47.0); HEMOGLOBIN 9.4 g/dl (12.0-16.0); LYMPHOCYTES # 1.1 10^3/ul (0.8-2.9); LYMPHOCYTES % 21.7 % (15.0-51.0); MEAN CORPUSCULAR HEMOGLOBIN 28.1 pg (29.0-33.0); MEAN CORPUSCULAR HGB CONC 31.4 g/dl (32.0-37.0); MEAN CORPUSCULAR VOLUME 89.5 fl (82.0-101.0); MONOCYTE # 0.5 10^3/ul (0.3-0.9); NEUTROPHILS % 62.6 % (39.0-77.0); PLATELET COUNT 374 10^3/UL (140-415); RED BLOOD COUNT 3.34 10^6/ul (4.20-5.40); RED CELL DISTRIBUTION WIDTH 13.1 % (11.5-14.5); WHITE BLOOD COUNT 4.8 10^3/ul (4.8-10.8)
[2017-01-07 06:08] LABS: CREATININE 0.85 mg/dl (0.44-1.00); POTASSIUM 4.4 mmol/L (3.5-5.1)
[2017-01-07] MEDS: LEVOFLOXACIN 500 MG TAB PO SCH (06:30)
[2017-01-07 07:23] VITALS: BP 122/57; RESP 20
[2017-01-07] MEDS: DOXYCYCLINE 100 MG TAB PO SCH (08:31)
[2017-01-07] MEDS: FAMOTIDINE 20 MG TAB PO SCH (08:31)
[2017-01-07] MEDS: HYDROCHLOROTHIAZIDE 12.5 MG CAP PO SCH (08:31)
[2017-01-07] MEDS: NICOTINE (7 MG/24 HR) PATCH TRANSDERM SCH (08:32)
[2017-01-07] MEDS: CLOPIDOGREL 75 MG TAB PO SCH (08:32)
[2017-01-07] MEDS: AMLODIPINE 5 MG TAB PO SCH (08:32)
[2017-01-07] MEDS: COLLAGENASE 30 GM TUBE TOP SCH (08:32)
[2017-01-07] MEDS: CHOLECALCIFEROL 2,000 UNIT CAP PO SCH (08:32)
[2017-01-07] MEDS: LOSARTAN 50 MG TAB PO SCH (08:32)
[2017-01-07] MEDS: TIMOLOL 0.5% 5 ML OPH BOTH EYES SCH (08:33)
[2017-01-07] MEDS: ENOXAPARIN 30 MG/0.3 ML SYG SC SCH (08:40)
[2017-01-07] MEDS: morphine 2 MG INJ IV PRN (13:24)
[2017-01-07 13:25] VITALS: BP 127/66; RESP 20
--- NOTE | 2017-01-07 16:44 | DS ---
Date/Time of Note Date/Time of Note DATE: 01/07/17 TIME: 16:42 Discharge Summary Admission/Discharge Info Admit Date/Time Dec 26, 2016 at 14:43 Discharge Date/Time Jan 07, 2017 at 14:20 Discharge Diagnosis 1. Left lower extremity nonhealing wounds 2. Essential hypertension 3. Dyslipidemia 4. History of PVD 5. Normocytic normochromic anemia Patient Condition: Stable Hospital Course This is an addendum to the discharge summary. The patient was discharged on 01/06. However, the patient stayed in the hospital because of nonclinical reasons for arranging outpatient home health. Please refer to the discharge summary done by Fede Wilkinson on 01/06/2017. Case discussed with Dr. Elaine. Home Meds Active Scripts Doxycycline Monohydrate* (Doxycycline Monohydrate*) 100 Mg Tablet, 100 MG PO BID for 21 Days, TAB Prov:FEDE WILKINSON 01/04/17 Levofloxacin* (Levofloxacin*) 500 Mg Tablet, 500 MG PO DAILY for 21 Days, TAB Prov:FEDE WILKINSON 01/04/17 Docusate Sodium* (Colace*) 100 Mg Capsule, 100 MG PO Q24H Y for CONSTIPATION, # 30 CAP Prov:FEDE WILKINSON 01/04/17 Hydrocodone/Acetaminophen ([place] 7.5-325 Tablet) 1 Each Tablet, 1 EACH PO Q4, # 30 TAB Prov:FEDE WILKINSON 01/04/17 Collagenase* (Santyl*) 30 Gm Oint..gm., 1 APPLIC TOP DAILY for 30 Days Prov:FEDE WILKINSON 01/04/17 Reported Medications Travoprost* (Travatan Z*) 2.5 Ml Drops, 1 DROP BOTH EYES HS, #1 BOTTLE 12/26/16 Timolol Maleate* (Timoptic*) 0.5%-5ml Opht, 1 DROP BOTH EYES BID, #1 EA 12/26/16 Aspirin* (Aspirin* EC) 81 Mg Tablet.dr, 81 MG PO DAILY, TAB 12/26/16 Cilostazol* (Cilostazol*) 100 Mg Tablet, 50 MG PO BID, TAB 12/26/16 Clopidogrel Bisulfate (Clopidogrel) 75 Mg Tablet, 75 MG PO DAILY, #30 TAB 10/03/16 Hydrochlorothiazide* (Hydrochlorothiazide*) 12.5 Mg Tablet, 12.5 MG PO DAILY, # 30 TAB 10/03/16 Simvastatin* (Zocor*) 20 Mg Tablet, 20 MG PO QHS, #30 TAB 10/03/16 Amlodipine Bes/Olmesartan Med (Javier 5-40 mg Tablet) 1 Each Tablet, 1 EACH PO DAILY, TAB 10/03/16 Primary Care Provider Mendoza Abdul Time spent on discharge: < 30 minutes Pending Labs Laboratory Tests Test 01/07/17 04:46 01/07/17 08:31 White Blood Count 4.810^3/ul (4.8-10.8) Red Blood Count 3.3410^6/ul (4.20-5.40) Hemoglobin 9.4g/dl (12.0-16.0) Hematocrit 29.9% (37.0-47.0) Mean Corpuscular Volume 89.5fl (82.0-101.0) Mean Corpuscular Hemoglobin 28.1pg (29.0-33.0) Mean Corpuscular Hemoglobin Concent 31.4g/dl (32.0-37.0) Red Cell Distribution Width 13.1% (11.5-14.5) Platelet Count 43155^3/UL (140-415) Mean Platelet Volume 9.0fl (7.4-10.4) Neutrophils % 62.6% (39.0-77.0) Lymphocytes % 21.7% (15.0-51.0) Monocytes % 11.0% (0.0-11.0) Eosinophils % 3.7% (0.0-7.0) Basophils % 0.4% (0.0-2.0) Nucleated Red Blood Cells % 0.0/100WBC (0.0-0.0) Neutrophils # 3.010^3/ul (1.6-7.5) Lymphocytes # 1.110^3/ul (0.8-2.9) Monocytes # 0.510^3/ul (0.3-0.9) Eosinophils # 0.210^3/ul (0.0-0.5) Basophils # 0.010^3/ul (0.0-0.1) Nucleated Red Blood Cells # 0.010^3/ul (0.0-0.0) Sodium Level 141mmol/L (135-144) Potassium Level 4.4mmol/L (3.5-5.1) Chloride Level 103mmol/L (97-110) Carbon Dioxide Level 28mmol/L (21-31) Anion Gap 14 (8-16) Blood Urea Nitrogen 14mg/dl (7-20) Creatinine 0.85mg/dl (0.44-1.00) Glucose Level 97mg/dl (70-220) Calcium Level 9.0mg/dl (8.4-10.2) Lab Scanned Report REFERENCE [id number] AMANDA KUNZ NP Jan 07, 2017 16:44
== END 2017-01-07 14:20 | disposition home health service (06) | DRG 593 ==
LOC: MS2 14:43
PROVIDERS: ADMIT Internal Medicine; ATTEND Internal Medicine
DX: L97.229 Non-pressure chronic ulcer of left calf with unspecified severity (principal); B37.49 Other urogenital candidiasis; R64 Cachexia; R65.10 Systemic inflammatory response syndrome (SIRS) of non-infectious origin without acute organ dysfunction; D63.8 Anemia in other chronic diseases classified elsewhere; I10 Essential (primary) hypertension; Z68.1 Body mass index [BMI] 19.9 or less, adult; E78.5 Hyperlipidemia, unspecified; I73.9 Peripheral vascular disease, unspecified; F17.210 Nicotine dependence, cigarettes, uncomplicated; Z90.710 Acquired absence of both cervix and uterus; H40.9 Unspecified glaucoma; Z91.19 Patient's noncompliance with other medical treatment and regimen; I87.2 Venous insufficiency (chronic) (peripheral); K21.9 Gastro-esophageal reflux disease without esophagitis; M25.562 Pain in left knee
CPT/HCPCS: 80048; 80053; 80061; 80202; 80307; 81001; 82306; 82565; 82652; 83036; 83735; 84100; 84439; 84443; 84520; 85025; 85610; 85730; 87070; 87081; 87086; 97162; J0692; J1644; J1650; J1956; J2270; J2405; J3370; J3475; J7050

== ENCOUNTER 2017-07-24 22:52 | Inpatient (IN) | END 2017-08-08 18:30 | disposition home health service (06) | DRG 291 ==